=== PATIENT | male | born 1955 | race African-American/Black ===

== ENCOUNTER 2018-07-31 13:43 | Emergency (ER) | payer OTHER, MEDICARE, SELFPAY ==
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
[2018-07-31 14:05] VITALS: BP 122/85; PULSE 91; RESP 20; O2SAT 97
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
[2018-07-31 14:30] VITALS: BP 125/86; PULSE 73; RESP 17; O2SAT 100
[2018-07-31] MEDS: IBUPROFEN 400 MG TABLET 800 MG PO (15:14)
[2018-07-31 15:57] VITALS: BP 125/81; PULSE 89; RESP 16; O2SAT 98
== END 2018-07-31 15:45 | disposition home or self-care (01) ==
PROVIDERS: Emergency Provider Emergency Medicine; PCP Family Medicine
DX: S06.0X9A Concussion with loss of consciousness of unspecified duration, initial encounter (principal); V49.40XA Driver injured in collision with unspecified motor vehicles in traffic accident, initial encounter
CPT/HCPCS: 70450; 71045; 72125; 82962; 99282; 99284

== ENCOUNTER 2018-08-10 23:11 | Emergency (ER) | payer OTHER, MEDICARE, SELFPAY ==
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
[2018-08-10 23:20] VITALS: BP 143/91; PULSE 90; RESP 15; TEMP 36.7; O2SAT 97; BMI 33.0
== END 2018-08-11 00:04 | disposition home or self-care (01) ==
PROVIDERS: Emergency Provider Emergency Medicine; PCP Family Medicine
DX: R51 Headache (principal); F07.81 Postconcussional syndrome
CPT/HCPCS: 99282

== ENCOUNTER 2018-10-03 16:08 | Emergency (ER) | payer MEDICARE, OTHER, SELFPAY ==
[2018-10-03 16:13] VITALS: BP 134/83; PULSE 102; RESP 16; TEMP 36.9; O2SAT 98; BMI 33.0
--- NOTE | 2018-10-03 17:22 | DI.US.S_ITS ---
PROCEDURE: US SCROTUM INDICATIONS: PAIN, EDEMA TECHNIQUE: Real-time scanning was performed of the scrotum and testicles, with image documentation. Color and pulse Doppler interrogation was performed of both testicles. COMPARISON: None. FINDINGS: Right: Testicle is normal in size at 3.3 x 2.8 x 2.7 cm, and homogenous in echotexture. Epididymis is normal in overall size and morphology. Small right hydrocele. Overlying scrotal skin is normal in thickness. Left: Testicle is normal in size at 3.7 x 2.1 x 2.9 cm, and homogeneous in echotexture. Epididymis is normal in overall size and morphology. No hydrocele or varicoceles. Overlying scrotal skin is normal in thickness. Doppler: Color and pulse Doppler demonstrate increased arterial flow to the right testis and epididymis. Intact venous flow is seen bilaterally. IMPRESSION: 1. Mild right epididymo-orchitis. Dictated by: Jina Franco M.D. on 10/03/2018 at 18:15 Approved by: Jina Franco M.D. on 10/03/2018 at 18:16
--- NOTE | 2018-10-03 17:24 | ED.MALEGU ---
HPI - Male Genitourinary General Chief complaint: Urogenital-Male Stated complaint: PROBLEMS WITH LEFT AND RIGHT TESTICLE; SWELLING Time Seen by Provider: 10/03/18 17:15 Source: patient Mode of arrival: ambulatory Limitations: no limitations History of Present Illness HPI Narrative: 63-year-old male comes in with complaint of testicular pain. Patient states he has had some pain for the last couple weeks in the last, he is having the pain just started today on the right and noticed a particular area that discomfort. Patient he denies any dysuria, he denies any penile discharge. He has had a cyst on his left testicle in the past and saw urology for it. He states it felt a little bit similar to that. He denies any other symptoms, he denies any abdominal pain, no fevers, no nausea or vomiting. No GI symptoms. No urgency, no frequency. He has got some chronic back pain after having an accident July but no new changes. Patient has multiple medical problems including coronary artery disease, he is discussing with his physicians about cardiac stents. He is on hydrochloric when for sarcoidosis, he takes medications for hypertension, dyslipidemia, gout. He has had multiple orthopedic surgeries. He is accompanied by his today. Related Data Home Medications Medication Instructions Recorded Confirmed amlodipine 5 mg PO DAILY 10/03/18 10/03/18 aspirin 81 mg PO DAILY 10/03/18 10/03/18 camphor-menthol 1 applic TOPICAL BID PRN 10/03/18 10/03/18 cholecalciferol (vitamin D3) 2,000 unit PO DAILY 10/03/18 10/03/18 [Vitamin D3] clotrimazole 1 applic TOPICAL BID 10/03/18 10/03/18 colchicine 2 tab PO PRN PRN MDD 3 10/03/18 10/03/18 fluocinolone 1 applic TOPICAL DAILY PRN 10/03/18 10/03/18 fluoride (sodium) 1 applic DENTAL BEDTIME 10/03/18 10/03/18 glimepiride 4 mg PO QAM 10/03/18 10/03/18 glucose 16 g PO PRN PRN 10/03/18 10/03/18 hydroxychloroquine 400 mg PO DAILY 10/03/18 10/03/18 ibuprofen 600 mg PO TID PRN 10/03/18 10/03/18 insulin glargine 8 units SUBCUT QAM 10/03/18 10/03/18 isosorbide mononitrate 15 mg PO DAILY 10/03/18 10/03/18 lidocaine 1 applic TOPICAL BID PRN 10/03/18 10/03/18 metformin 1,000 mg PO BID 10/03/18 10/03/18 methocarbamol [Robaxin-750] 1,500 mg PO QID PRN 10/03/18 10/03/18 metoprolol succinate 50 mg PO DAILY 10/03/18 10/03/18 peg 400-propylene glycol 1 drp OPHTHALMIC (EYE) QID PRN 10/03/18 10/03/18 prednisone 10 mg PO DAILY 10/03/18 10/03/18 rosuvastatin 40 mg PO DAILY 10/03/18 10/03/18 saxagliptin 5 mg PO DAILY 10/03/18 10/03/18 tamsulosin 0.4 mg PO BEDTIME 10/03/18 10/03/18 triamcinolone acetonide 1 applic TOPICAL BID PRN 10/03/18 10/03/18 Previous Rx's Medication Instructions Recorded doxycycline hyclate 100 mg PO BID #28 cap 10/03/18 hydrocodone-acetaminophen [[place]] 1 tab PO Q6H PRN #10 tab 10/03/18 Allergies Allergy/AdvReac Type Severity Reaction Status Date / Time piroxicam [PIROXICAM] Allergy Mild RASH Verified 10/03/18 16:13 Review of Systems Review of Systems All systems reviewed & are unremarkable except as noted in HPI and below Constitutional Denies chills and Denies fever(s) Gastrointestinal Gastrointestinal: Denies abdominal pain, Denies change in bowel habits, Denies diarrhea, Denies nausea and Denies vomiting Genitourinary Reports as per HPI, Denies hematuria, Denies difficulty urinating, Denies genital lesions, Denies genital pain (Penile pain), Denies dysuria, Denies flank pain, Denies penile discharge, Reports scrotal swelling, Denies testicular mass, Reports testicular pain, Denies urinary frequency, Denies urinary hesitancy, Denies urinary incontinence and Denies urinary urgency Musculoskeletal Denies back pain PFSH Medical History Coronary artery disease (Acute) Dyslipidemia (Acute) Hypertension (Acute) Diabetes mellitus (Acute) Sarcoid (Acute) Surgical History H/O toe surgery (Acute) Social History Smoking Status: Never smoker alcohol intake: never substance use type: does not use Exam Narrative Exam Narrative: GENERAL: Alert and oriented x three, well-nourished, well-appearing male in mild distress. HEENT: Head normocephalic, atraumatic, EOMI, pupils reactive, face symmetric, moist mucous membranes NECK: Supple, full range of motion CARDIOVASCULAR: Regular rate and rhythm without murmurs, rubs or gallops. RESPIRATORY: Breath sounds equal bilaterally, no wheezes rales or rhonchi. ABDOMEN: Soft, nontender. Normoactive bowel sounds all 4 quadrants. No guarding or rebound, rigidity, no mass : No CVA tenderness. Male: normal external examination, no penile discharge or lesions, testicles mild tenderness on the left, none appreciated on the right. Patient does seem to have some a testicular enlargement in general bilaterally. Patient has normal cremasteric reflex intact, no inguinal hernias noted. Patient is uncircumcised. No penile discharge or lesions. EXTREMITIES: Normal range of motion, no clubbing or edema. Neurovascularly intact NEUROLOGICAL: Cranial nerves II through XII grossly intact. Moving all extremities SKIN: Warm, dry, no petechiae, no rashes or lesions. Initial Vital Signs Initial Vital Signs: Vital Signs Temperature 98.5 F 10/03/18 16:13 Pulse Rate 102 H 10/03/18 16:13 Respiratory Rate 16 10/03/18 16:13 Blood Pressure 134/83 10/03/18 16:13 Pulse Oximetry 98 10/03/18 16:13 Course Orders Ordered: ED Orders 10/03/18 16:16 Urinalysis and Microscopic Stat Urine Chlamydia Gonorrhea PCR Stat 10/03/18 17:22 US scrotum Stat Discontinued Medications Hydrocodone Bitart/Acetaminophen ([place] 5/325) 1 tab PO NOW ONE Stop: 10/03/18 18:26 Last Admin: 10/03/18 18:39 Dose: 1 tab Ceftriaxone Sodium (Rocephin) 250 mg IM NOW ONE Stop: 10/03/18 18:19 Last Admin: 10/03/18 18:42 Dose: 250 mg Vital Signs - 8 hr 10/03/18 16:13 Temperature 98.5 F Pulse Rate 102 H Respiratory Rate 16 Blood Pressure 134/83 Pulse Oximetry 98 MDM - Male Genitourinary Lab Data Lab Results 10/03/18 Range/Units 16:16 Urine Color Yellow Urine Appearance Clear Urine pH 8.5 H (4.5-8.0) Ur Specific [place] 1.015 (1.000-1.035) Urine Protein Negative (Negative) Urine Glucose (UA) Trace (Normal) g/dL Urine Ketones Negative (NEGATIVE) Urine Occult Blood Negative (Negative) Urine Nitrate Negative (Negative) Urine Bilirubin Negative (NEGATIVE) Urine Urobilinogen 0.2 (0.2) E.U./dL Ur Leukocyte Esterase Negative (NEGATIVE) Urine RBC None seen (0-5/HPF) Urine WBC 0-1/hpf (0-5/HPF) Urine Bacteria None seen (None) Ur Culture Indicated? Cult not indicated Micro UA Comment Microscopic normal Imaging Data scrotum US: Radiologist's impression: [address] [address] Ultrasound Report Signed Patient: Juan Mosquera MR#: [id number] : 1955 Acct:[id number] Age/Sex: 63 / M Date of Service: 10/03/18 Loc: ED Accession Number: [id number] Procedure: US scrotum Ordering Provider: Paulina Murillo D.O. PROCEDURE: US SCROTUM INDICATIONS: PAIN, EDEMA TECHNIQUE: Real-time scanning was performed of the scrotum and testicles, with image documentation. Color and pulse Doppler interrogation was performed of both testicles. COMPARISON: None. FINDINGS: Right: Testicle is normal in size at 3.3 x 2.8 x 2.7 cm, and homogenous in echotexture. Epididymis is normal in overall size and morphology. Small right hydrocele. Overlying scrotal skin is normal in thickness. Left: Testicle is normal in size at 3.7 x 2.1 x 2.9 cm, and homogeneous in echotexture. Epididymis is normal in overall size and morphology. No hydrocele or varicoceles. Overlying scrotal skin is normal in thickness. Doppler: Color and pulse Doppler demonstrate increased arterial flow to the right testis and epididymis. Intact venous flow is seen bilaterally. IMPRESSION: 1. Mild right epididymo-orchitis. Dictated by: Jina Franco M.D. on 10/03/2018 at 18:15 Approved by: Jina Franco M.D. on 10/03/2018 at 18:16 Discharge Plan Departure Patient Disposition: Home Clinical Impression: Epididymitis Instructions: DI for Epididymitis Activity Restrictions/Additional Instructions: Follow-up with your primary care physician or urologist in the next week for recheck. Take your antibiotics until completely gone. Return to the emergency department for fevers greater than 100.4, rapidly worsening pain, swelling or discomfort in the testicles, if you're unable to urinate sure if you have other new or concerning symptoms. Prescriptions: New doxycycline hyclate 100 mg capsule 100 mg PO BID Qty: 28 RF: 0 hydrocodone-acetaminophen [[place]] 5-325 mg tablet 1 tab PO Q6H PRN (Reason: pain) Qty: 10 RF: 0 No Action prednisone 10 mg Tablet 10 mg PO DAILY RF: 0 insulin glargine 100 unit/mL Solution 8 units subcut QAM RF: 0 isosorbide mononitrate 30 mg Tablet Extended Release 24 Hr 15 mg PO DAILY RF: 0 metoprolol succinate 100 mg Tablet Extended Release 24 Hr 50 mg PO DAILY RF: 0 amlodipine 5 mg Tablet 5 mg PO DAILY RF: 0 methocarbamol [Robaxin-750] 750 mg Tablet 1,500 mg PO QID PRN (Reason: Spasms) RF: 0 tamsulosin 0.4 mg Capsule 0.4 mg PO BEDTIME RF: 0 metformin 1,000 mg Tablet 1,000 mg PO BID RF: 0 triamcinolone acetonide 0.1 % Ointment 1 applic TOPICAL BID PRN (Reason: itching or rash) RF: 0 glimepiride 4 mg Tablet 4 mg PO QAM RF: 0 glucose 4 gram Tablet,Chewable 16 g PO PRN PRN (Reason: glucose of 70 mg/dl or less) RF: 0 camphor-menthol 0.5-0.5 % Lotion 1 applic TOPICAL BID PRN (Reason: pain relief) RF: 0 aspirin 81 mg Tablet,Chewable 81 mg PO DAILY RF: 0 fluocinolone 0.01 % Solution 1 applic TOPICAL DAILY PRN (Reason: rash or itching) RF: 0 hydroxychloroquine 200 mg Tablet 400 mg PO DAILY RF: 0 ibuprofen 600 mg Tablet 600 mg PO TID PRN (Reason: pain) RF: 0 colchicine 0.6 mg Tablet 2 tab PO PRN MDD 3 PRN (Reason: Gout) RF: 0 clotrimazole 1 % Cream 1 applic TOPICAL BID RF: 0 fluoride (sodium) 1.1 % Gel 1 applic Dental BEDTIME RF: 0 peg 400-propylene glycol 0.4-0.3 % Drops 1 drp ophthalmic (eye) QID PRN (Reason: Dry Eyes) RF: 0 rosuvastatin 40 mg Tablet 40 mg PO DAILY RF: 0 cholecalciferol (vitamin D3) [Vitamin D3] 1,000 unit Tablet 2,000 unit PO DAILY RF: 0 saxagliptin 5 mg Tablet 5 mg PO DAILY RF: 0 lidocaine 5 % Ointment 1 applic TOPICAL BID PRN (Reason: foot and knee pain) RF: 0 Referrals: Elise Sears MD [Primary Care Provider] -
[2018-10-03 17:38] LABS: Bacteria Urine None Seen; RBC Urine None Seen (0-5/HPF)
[2018-10-03 17:40] LABS: Appearance Urine UA CLEAR; Bilirubin Urine UA NEGATIVE (NEGATIVE); Color Urine UA YELLOW; Glucose Urine UA TRACE g/dL (Normal); Ketones Urine UA NEGATIVE (NEGATIVE); Leukocyte Esterase Urine UA NEGATIVE (NEGATIVE); Nitrite Urine UA NEGATIVE (Negative); Occult Blood Urine UA NEGATIVE (Negative); Protein Urine UA NEGATIVE (Negative); Specific Gravity Urine UA 1.015 (1.000-1.035); Urobilinogen Urine UA 0.2 E.U./dL (0.2); pH Urine UA 8.5 (4.5-8.0)
--- NOTE | 2018-10-03 17:44 | ED_ITS ---
HPI - Male Genitourinary General Chief complaint: Urogenital-Male Stated complaint: PROBLEMS WITH LEFT AND RIGHT TESTICLE; SWELLING Time Seen by Provider: 10/03/18 17:15 Source: patient Mode of arrival: ambulatory Limitations: no limitations History of Present Illness HPI Narrative: 63-year-old male comes in with complaint of testicular pain. Patient states he has had some pain for the last couple weeks in the last, he is having the pain just started today on the right and noticed a particular area that discomfort. Patient he denies any dysuria, he denies any penile discharge. He has had a cyst on his left testicle in the past and saw urology for it. He states it felt a little bit similar to that. He denies any other symptoms, he denies any abdominal pain, no fevers, no nausea or vomiting. No GI symptoms. No urgency, no frequency. He has got some chronic back pain after having an accident July but no new changes. Patient has multiple medical problems including coronary artery disease, he is discussing with his physicians about cardiac stents. He is on hydrochloric when for sarcoidosis, he takes medications for hypertension, dyslipidemia, gout. He has had multiple orthopedic surgeries. He is accompanied by his today. Related Data Home Medications Medication Instructions Recorded Confirmed amlodipine 5 mg PO DAILY 10/03/18 10/03/18 aspirin 81 mg PO DAILY 10/03/18 10/03/18 camphor-menthol 1 applic TOPICAL BID PRN 10/03/18 10/03/18 cholecalciferol (vitamin D3) 2,000 unit PO DAILY 10/03/18 10/03/18 [Vitamin D3] clotrimazole 1 applic TOPICAL BID 10/03/18 10/03/18 colchicine 2 tab PO PRN PRN MDD 3 10/03/18 10/03/18 fluocinolone 1 applic TOPICAL DAILY PRN 10/03/18 10/03/18 fluoride (sodium) 1 applic DENTAL BEDTIME 10/03/18 10/03/18 glimepiride 4 mg PO QAM 10/03/18 10/03/18 glucose 16 g PO PRN PRN 10/03/18 10/03/18 hydroxychloroquine 400 mg PO DAILY 10/03/18 10/03/18 ibuprofen 600 mg PO TID PRN 10/03/18 10/03/18 insulin glargine 8 units SUBCUT QAM 10/03/18 10/03/18 isosorbide mononitrate 15 mg PO DAILY 10/03/18 10/03/18 lidocaine 1 applic TOPICAL BID PRN 10/03/18 10/03/18 metformin 1,000 mg PO BID 10/03/18 10/03/18 methocarbamol [Robaxin-750] 1,500 mg PO QID PRN 10/03/18 10/03/18 metoprolol succinate 50 mg PO DAILY 10/03/18 10/03/18 peg 400-propylene glycol 1 drp OPHTHALMIC (EYE) QID PRN 10/03/18 10/03/18 prednisone 10 mg PO DAILY 10/03/18 10/03/18 rosuvastatin 40 mg PO DAILY 10/03/18 10/03/18 saxagliptin 5 mg PO DAILY 10/03/18 10/03/18 tamsulosin 0.4 mg PO BEDTIME 10/03/18 10/03/18 triamcinolone acetonide 1 applic TOPICAL BID PRN 10/03/18 10/03/18 Previous Rx's Medication Instructions Recorded doxycycline hyclate 100 mg PO BID #28 cap 10/03/18 hydrocodone-acetaminophen [[place]] 1 tab PO Q6H PRN #10 tab 10/03/18 Allergies Allergy/AdvReac Type Severity Reaction Status Date / Time piroxicam [PIROXICAM] Allergy Mild RASH Verified 10/03/18 16:13 Review of Systems Review of Systems All systems reviewed & are unremarkable except as noted in HPI and below Constitutional Denies chills and Denies fever(s) Gastrointestinal Gastrointestinal: Denies abdominal pain, Denies change in bowel habits, Denies diarrhea, Denies nausea and Denies vomiting Genitourinary Reports as per HPI, Denies hematuria, Denies difficulty urinating, Denies genital lesions, Denies genital pain (Penile pain), Denies dysuria, Denies flank pain, Denies penile discharge, Reports scrotal swelling, Denies testicular mass, Reports testicular pain, Denies urinary frequency, Denies urinary hesitancy, Denies urinary incontinence and Denies urinary urgency Musculoskeletal Denies back pain PFSH Medical History Coronary artery disease (Acute) Dyslipidemia (Acute) Hypertension (Acute) Diabetes mellitus (Acute) Sarcoid (Acute) Surgical History H/O toe surgery (Acute) Social History Smoking Status: Never smoker alcohol intake: never substance use type: does not use Exam Narrative Exam Narrative: GENERAL: Alert and oriented x three, well-nourished, well- appearing male in mild distress. HEENT: Head normocephalic, atraumatic, EOMI, pupils reactive, face symmetric, moist mucous membranes NECK: Supple, full range of motion CARDIOVASCULAR: Regular rate and rhythm without murmurs, rubs or gallops. RESPIRATORY: Breath sounds equal bilaterally, no wheezes rales or rhonchi. ABDOMEN: Soft, nontender. Normoactive bowel sounds all 4 quadrants. No guarding or rebound, rigidity, no mass : No CVA tenderness. Male: normal external examination, no penile discharge or lesions, testicles mild tenderness on the left, none appreciated on the right. Patient does seem to have some a testicular enlargement in general bilaterally. Patient has normal cremasteric reflex intact, no inguinal hernias noted. Patient is uncircumcised. No penile discharge or lesions. EXTREMITIES: Normal range of motion, no clubbing or edema. Neurovascularly intact NEUROLOGICAL: Cranial nerves II through XII grossly intact. Moving all extremities SKIN: Warm, dry, no petechiae, no rashes or lesions. Initial Vital Signs Initial Vital Signs: Vital Signs Temperature 98.5 F 10/03/18 16:13 Pulse Rate 102 H 10/03/18 16:13 Respiratory Rate 16 10/03/18 16:13 Blood Pressure 134/83 10/03/18 16:13 Pulse Oximetry 98 10/03/18 16:13 Course Orders Ordered: ED Orders 10/03/18 16:16 Urinalysis and Microscopic Stat Urine Chlamydia Gonorrhea PCR Stat 10/03/18 17:22 US scrotum Stat Discontinued Medications Hydrocodone Bitart/Acetaminophen ([place] 5/325) 1 tab PO NOW ONE Stop: 10/03/18 18:26 Last Admin: 10/03/18 18:39 Dose: 1 tab Ceftriaxone Sodium (Rocephin) 250 mg IM NOW ONE Stop: 10/03/18 18:19 Last Admin: 10/03/18 18:42 Dose: 250 mg Vital Signs - 8 hr 10/03/18 16:13 Temperature 98.5 F Pulse Rate 102 H Respiratory Rate 16 Blood Pressure 134/83 Pulse Oximetry 98 MDM - Male Genitourinary Lab Data Lab Results 10/03/18 Range/Units 16:16 Urine Color Yellow Urine Appearance Clear Urine pH 8.5 H (4.5-8.0) Ur Specific [place] 1.015 (1.000-1.035) Urine Protein Negative (Negative) Urine Glucose (UA) Trace (Normal) g/dL Urine Ketones Negative (NEGATIVE) Urine Occult Blood Negative (Negative) Urine Nitrate Negative (Negative) Urine Bilirubin Negative (NEGATIVE) Urine Urobilinogen 0.2 (0.2) E.U./dL Ur Leukocyte Esterase Negative (NEGATIVE) Urine RBC None seen (0-5/HPF) Urine WBC 0-1/hpf (0-5/HPF) Urine Bacteria None seen (None) Ur Culture Indicated? Cult not indicated Micro UA Comment Microscopic normal Imaging Data scrotum US: Radiologist's impression: [address] [address] Ultrasound Report Signed Patient: Juan Mosquera MR#: [id number] : 1955 Acct:[id number] Age/Sex: 63 / M Date of Service: 10/03/18 Loc: ED Accession Number: [id number] Procedure: US scrotum Ordering Provider: Paulina Murillo D.O. PROCEDURE: US SCROTUM INDICATIONS: PAIN, EDEMA TECHNIQUE: Real-time scanning was performed of the scrotum and testicles, with image documentation. Color and pulse Doppler interrogation was performed of both testicles. COMPARISON: None. FINDINGS: Right: Testicle is normal in size at 3.3 x 2.8 x 2.7 cm, and homogenous in echotexture. Epididymis is normal in overall size and morphology. Small right hydrocele. Overlying scrotal skin is normal in thickness. Left: Testicle is normal in size at 3.7 x 2.1 x 2.9 cm, and homogeneous in echotexture. Epididymis is normal in overall size and morphology. No hydrocele or varicoceles. Overlying scrotal skin is normal in thickness. Doppler: Color and pulse Doppler demonstrate increased arterial flow to the right testis and epididymis. Intact venous flow is seen bilaterally. IMPRESSION: 1. Mild right epididymo-orchitis. Dictated by: Jina Franco M.D. on 10/03/2018 at 18:15 Approved by: Jina Franco M.D. on 10/03/2018 at 18:16 Discharge Plan Departure Patient Disposition: Home Clinical Impression: Epididymitis Instructions: DI for Epididymitis Activity Restrictions/Additional Instructions: Follow-up with your primary care physician or urologist in the next week for recheck. Take your antibiotics until completely gone. Return to the emergency department for fevers greater than 100.4, rapidly worsening pain, swelling or discomfort in the testicles, if you're unable to urinate sure if you have other new or concerning symptoms. Prescriptions: New doxycycline hyclate 100 mg capsule 100 mg PO BID Qty: 28 RF: 0 hydrocodone-acetaminophen [[place]] 5-325 mg tablet 1 tab PO Q6H PRN (Reason: pain) Qty: 10 RF: 0 No Action prednisone 10 mg Tablet 10 mg PO DAILY RF: 0 insulin glargine 100 unit/mL Solution 8 units subcut QAM RF: 0 isosorbide mononitrate 30 mg Tablet Extended Release 24 Hr 15 mg PO DAILY RF: 0 metoprolol succinate 100 mg Tablet Extended Release 24 Hr 50 mg PO DAILY RF: 0 amlodipine 5 mg Tablet 5 mg PO DAILY RF: 0 methocarbamol [Robaxin-750] 750 mg Tablet 1,500 mg PO QID PRN (Reason: Spasms) RF: 0 tamsulosin 0.4 mg Capsule 0.4 mg PO BEDTIME RF: 0 metformin 1,000 mg Tablet 1,000 mg PO BID RF: 0 triamcinolone acetonide 0.1 % Ointment 1 applic TOPICAL BID PRN (Reason: itching or rash) RF: 0 glimepiride 4 mg Tablet 4 mg PO QAM RF: 0 glucose 4 gram Tablet,Chewable 16 g PO PRN PRN (Reason: glucose of 70 mg/dl or less) RF: 0 camphor-menthol 0.5-0.5 % Lotion 1 applic TOPICAL BID PRN (Reason: pain relief) RF: 0 aspirin 81 mg Tablet,Chewable 81 mg PO DAILY RF: 0 fluocinolone 0.01 % Solution 1 applic TOPICAL DAILY PRN (Reason: rash or itching) RF: 0 hydroxychloroquine 200 mg Tablet 400 mg PO DAILY RF: 0 ibuprofen 600 mg Tablet 600 mg PO TID PRN (Reason: pain) RF: 0 colchicine 0.6 mg Tablet 2 tab PO PRN MDD 3 PRN (Reason: Gout) RF: 0 clotrimazole 1 % Cream 1 applic TOPICAL BID RF: 0 fluoride (sodium) 1.1 % Gel 1 applic Dental BEDTIME RF: 0 peg 400-propylene glycol 0.4-0.3 % Drops 1 drp ophthalmic (eye) QID PRN (Reason: Dry Eyes) RF: 0 rosuvastatin 40 mg Tablet 40 mg PO DAILY RF: 0 cholecalciferol (vitamin D3) [Vitamin D3] 1,000 unit Tablet 2,000 unit PO DAILY RF: 0 saxagliptin 5 mg Tablet 5 mg PO DAILY RF: 0 lidocaine 5 % Ointment 1 applic TOPICAL BID PRN (Reason: foot and knee pain) RF: 0 Referrals: Elise Sears MD [Primary Care Provider] -
[2018-10-03 17:47] LABS: Culture Indicated Urine Cult Not Indicated; Urine Comments Microscopic Normal; WBC Urine 0-1/HPF (0-5/HPF)
[2018-10-03] MEDS: HYDROCODONE/ACET 5/325 TABLET 1 TAB PO (18:39)
[2018-10-03] MEDS: cefTRIAXone 500 MG VIAL 250 MG IM (18:42)
[2018-10-03 19:06] LABS: Urine N gonorrhoeae NOT DETECTED
[2018-10-03 19:08] LABS: Urine Chlamydia NOT DETECTED
[2018-10-03 19:13] VITALS: BP 127/90; PULSE 87; RESP 18; O2SAT 96
== END 2018-10-03 19:15 | disposition home or self-care (01) ==
PROVIDERS: Emergency Provider Emergency Medicine; PCP Family Medicine
DX: N45.1 Epididymitis (principal)
CPT/HCPCS: 76870; 81001; 87491; 87591; 96372; 99282; 99284; J0696

== ENCOUNTER 2019-10-10 13:52 | Emergency (ER) | payer MEDICARE, OTHER, SELFPAY ==
[2019-10-10 14:17] VITALS: BP 141/84; PULSE 103; RESP 18; TEMP 36.7; O2SAT 98; BMI 31.7
--- NOTE | 2019-10-10 14:22 | DI.US.S_ITS ---
PROCEDURE: US SCROTUM INDICATIONS: SCROTAL SWELLING AND PAIN TECHNIQUE: Real-time scanning was performed of the scrotum and testicles, with image documentation. Color and pulse Doppler interrogation was performed of both testicles. COMPARISON: [facility], , US SCROTUM, 10/03/2018, 17:54. FINDINGS: Right: Testicle is normal in size at 3.7 x 2.7 x 3.1 cm, and homogenous in echotexture. Epididymis is normal in overall size and morphology. There is a moderate complex hydrocele. No varicoceles. Overlying scrotal skin is normal in thickness. Left: Testicle is normal in size at 3.9 x 2.0 x 3.1 cm, and homogeneous in echotexture. Epididymis is normal in overall size and morphology. No hydrocele or varicoceles. Overlying scrotal skin is normal in thickness. Doppler: Color and pulse Doppler demonstrate normal and symmetric arterial flow in both testicles. IMPRESSION: 1. Normal testicles bilaterally. No evidence for testicular torsion or mass. 2. Normal epididymitis. 2. A moderate sized complex hydrocele is present on the right side, which could be a pyocele or hematocele. Dictated by: Sabiha Olivas M.D. on 10/10/2019 at 15:50 Approved by: Sabiha Olivas M.D. on 10/10/2019 at 15:55
[2019-10-10 16:41] LABS: Bacteria Urine None Seen; RBC Urine None Seen (0-5/HPF)
[2019-10-10 16:50] LABS: Culture Indicated Urine Cult Not Indicated; Squamous Epithelial Cell Urine 0-1 /HPF (0-5/HPF); WBC Urine 0-1/HPF (0-5/HPF)
--- NOTE | 2019-10-10 18:00 | PC.NURSE ---
pt reports testicular swelling, pain, onset today right side is worsen than left side +vasectomy, +hx of epididymitis a year ago denies penile dc, denies trauma, sexually active with one partner denies fever,nausea or vomiting. takes gabapentin, prednisone,rosuvastatin,tamsulosin
[2019-10-10 18:02] VITALS: BP 141/95; PULSE 92; RESP 16; O2SAT 97
--- NOTE | 2019-10-10 18:03 | ED_ITS ---
HPI - Male Genitourinary General Chief complaint: Urogenital-Male Stated complaint: issues with testicles Time Seen by Provider: 10/10/19 17:46 Source: patient Mode of arrival: Ambulatory Limitations: no limitations History of Present Illness HPI Narrative: This is a 64-year-old male comes in with complaint of right testicular swelling and left testicular pain. Patient states he had similar symptoms about a year ago. He saw a urologist but that was delayed by several months. He states that there was not any intervention. He has had a recurrence of his symptoms at this time. He states the pattern of pain and swelling is similar. He denies any fevers. No nausea or vomiting. No abdominal or flank pain. He denies penile pain. No dysuria urgency or frequency. Patient has not noticed any new skin changes. Patient states most recent episodes been over the last several days. He does have a history of sarcoidosis, hypertension and diabetes. He has had prior orthopedic surgeries but no intra-abdominal surgeries other than vasectomy. Patient denies any allergies to medications other than piroxicam. Related Data Home Medications Medication Instructions Recorded Confirmed amlodipine 5 mg PO DAILY 10/03/18 10/03/18 aspirin 81 mg PO DAILY 10/03/18 10/03/18 camphor-menthol 1 applic TOPICAL BID PRN 10/03/18 10/03/18 cholecalciferol (vitamin D3) 2,000 unit PO DAILY 10/03/18 10/03/18 [Vitamin D3] clotrimazole 1 applic TOPICAL BID 10/03/18 10/03/18 colchicine 2 tab PO PRN PRN MDD 3 10/03/18 10/03/18 fluocinolone 1 applic TOPICAL DAILY PRN 10/03/18 10/03/18 fluoride (sodium) 1 applic DENTAL BEDTIME 10/03/18 10/03/18 glimepiride 4 mg PO QAM 10/03/18 10/03/18 glucose 16 g PO PRN PRN 10/03/18 10/03/18 hydroxychloroquine 400 mg PO DAILY 10/03/18 10/03/18 ibuprofen 600 mg PO TID PRN 10/03/18 10/03/18 insulin glargine 8 units SUBCUT QAM 10/03/18 10/03/18 isosorbide mononitrate 15 mg PO DAILY 10/03/18 10/03/18 lidocaine 1 applic TOPICAL BID PRN 10/03/18 10/03/18 metformin 1,000 mg PO BID 10/03/18 10/03/18 methocarbamol [Robaxin-750] 1,500 mg PO QID PRN 10/03/18 10/03/18 metoprolol succinate 50 mg PO DAILY 10/03/18 10/03/18 peg 400-propylene glycol 1 drp OPHTHALMIC (EYE) QID PRN 10/03/18 10/03/18 prednisone 10 mg PO DAILY 10/03/18 10/03/18 rosuvastatin 40 mg PO DAILY 10/03/18 10/03/18 saxagliptin 5 mg PO DAILY 10/03/18 10/03/18 tamsulosin 0.4 mg PO BEDTIME 10/03/18 10/03/18 triamcinolone acetonide 1 applic TOPICAL BID PRN 10/03/18 10/03/18 Previous Rx's Medication Instructions Recorded hydrocodone-acetaminophen [Conifer] 1 tab PO Q6H PRN #10 tab 10/03/18 Allergies Allergy/AdvReac Type Severity Reaction Status Date / Time piroxicam [PIROXICAM] Allergy Mild RASH Verified 10/10/19 14:17 Review of Systems Review of Systems ROS Unobtainable: All systems reviewed & are unremarkable except as noted in HPI and below Patient History Medical History Coronary artery disease (Acute) Diabetes mellitus (Acute) Dyslipidemia (Acute) Hypertension (Acute) Sarcoid (Acute) Social History Smoking Status: Never smoker alcohol intake: never substance use type: does not use Smoking Status: Never smoker alcohol intake frequency: 0-2 drinks per day Substance Use Type: does not use Exam Narrative Exam Narrative: GENERAL: Alert and oriented x three, obese, well-appearing male in mild distress. HEENT: Head normocephalic, atraumatic, EOMI, pupils reactive, face symmetric, moist mucous membranes NECK: Supple, full range of motion CARDIOVASCULAR: Regular rate and rhythm without murmurs, rubs or gallops. RESPIRATORY: Breath sounds equal bilaterally, no wheezes rales or rhonchi. ABDOMEN: Soft, nontender. Normoactive bowel sounds all 4 quadrants. No guard ing or rebound, rigidity, no mass : No CVA tenderness. Male: uncircumcised penis, no penile discharge or lesions, left testicle is mildly tender, right testicle is swollen but non- tender, cremasteric reflex intact, no inguinal hernias noted. No erythema, no skin changes noted, no vesicles. EXTREMITIES: Normal range of motion, no clubbing or edema. Neurovascularly intact NEUROLOGICAL: Cranial nerves II through XII grossly intact. Moving all extremities SKIN: Warm, dry, no petechiae, no rashes or lesions. Initial Vital Signs Initial Vital Signs: Vital Signs Temperature 98.1 F 10/10/19 14:17 Pulse Rate 103 H 10/10/19 14:17 Respiratory Rate 18 10/10/19 14:17 Blood Pressure 141/84 H 10/10/19 14:17 Pulse Oximetry 98 10/10/19 14:17 Course Orders Ordered: ED Orders 10/10/19 14:22 US scrotum Stat 10/10/19 14:25 Urine Culture Stat Urine Microscopic Stat Vital Signs Vital signs: Vital Signs - 8 hr 10/10/19 14:17 10/10/19 18:02 Temperature 98.1 F Pulse Rate 103 H 92 H Respiratory Rate 18 16 Blood Pressure 141/84 H Blood Pressure [Left Arm] 141/95 H Pulse Oximetry 98 97 MDM - Male Genitourinary Lab Data Attestation: I reviewed the patient's lab results. Labs: Lab Results 10/10/19 Range/Units 14:25 Urine RBC None seen (0-5/HPF) Urine WBC 0-1/hpf (0-5/HPF) Ur Squamous Epith Cells 0-1 /hpf (0-5/HPF) Urine Bacteria None seen (None) Ur Culture Indicated? Cult not indicated Urine Dip Bedside Urine Glucose Negative Bedside Urine Bilirubin - Negative Bedside Urine Ketone - Negative Urine Specific [place] 1.015 Bedside Urine Occult Blood - Negative Bedside Urine pH 7.0 Bedside Urine Protein +/- 15 Bedside Urine Urobilinogen +/- 1mg Bedside Urine Nitrite - Negative Bedside Urine Leukocytes - Negative Esterase Imaging Data testicle US: Radiologist's Impression: [address] [address] Ultrasound Report Signed Patient: Juan Mosquera R#: [id number] : [id number]:[id number] Age/Sex: 64 / MDate of Service: 10/10/19 Loc: ED Accession Number: [id number] Procedure: US scrotum Ordering Provider: Paulina Murillo D.O. PROCEDURE: US SCROTUM INDICATIONS: SCROTAL SWELLING AND PAIN TECHNIQUE: Real-time scanning was performed of the scrotum and testicles, with image documentation. Color and pulse Doppler interrogation was performed of both testicles. COMPARISON: [facility], , US SCROTUM, 10/03/2018, 17:54. FINDINGS: Right: Testicle is normal in size at 3.7 x 2.7 x 3.1 cm, and homogenous in echotexture. Epididymis is normal in overall size and morphology. There is a moderate complex hydrocele. No varicoceles. Overlying scrotal skin is normal in thickness. Left: Testicle is normal in size at 3.9 x 2.0 x 3.1 cm, and homogeneous in echotexture. Epididymis is normal in overall size and morphology. No hydrocele or varicoceles. Overlying scrotal skin is normal in thickness. Doppler: Color and pulse Doppler demonstrate normal and symmetric arterial flow in both testicles. IMPRESSION: 1. Normal testicles bilaterally. No evidence for testicular torsion or mass. 2. Normal epididymitis. 2. A moderate sized complex hydrocele is present on the right side, which could be a pyocele or hematocele. Dictated by: Sabiha Olivas M.D. on 10/10/2019 at 15:50 Approved by: Sabiha Olivas M.D. on 10/10/2019 at 15:55 MDM Narrative Medical decision making narrative: Patient comes in with complaint of similar symptoms of past. Urine is negative. Urine was sent for culture. Ultrasound shows complex hydrocele with possibility of pyocele or hematocele. Patient has normal epididymitis. With normal testicles bilaterally. No evidence for torsion or mass. I discussed with patient he has had these symptoms in the past with some improvement but are recurrence. My suspicion for infection is low at this time. The side with the hydrocele is nontender. Discussed with patient I would like him to follow-up with Urology. [facility] [place] [facility] this [facility] he will stop by the office to either set up an appointment or be seen. He was also given ultrasound images on a disc to take to his appointment. Patient feels comfortable this plan. He defers anything for pain. We discussed signs and symptoms and reasons to return emergently. Discharge Plan Departure Patient Disposition: Home Clinical Impression: Hydrocele Discharge Date/Time: 10/10/19 18:33 Instructions: DI for Hydrocele-Adult Activity Restrictions/Additional Instructions: Follow up with your urologist at the [facility]. Call or stop by the office for an appointment. Take the disc with the ultrasound on it with you to see the urologist they may wish to view these images. Your urine today does not show any acute findings of infection, it was sent for urine culture. If this is positive you will receive a phone call to start you on antibiotics this is typically 48 to have a 72 hours later. You may continue home medications as prescribed. Return to the ER for fevers, rapidly worsening swelling, rapidly worsening pain, pain that is radiating into your abdomen, back or flanks, lightheadedness, passing out, bloody urine, nausea vomiting or other new or concerning symptoms. Prescriptions: No Action prednisone 10 mg Tablet 10 mg PO DAILY RF: 0 insulin glargine 100 unit/mL Solution 8 units subcut QAM RF: 0 isosorbide mononitrate 30 mg Tablet Extended Release 24 Hr 15 mg PO DAILY RF: 0 metoprolol succinate 100 mg Tablet Extended Release 24 Hr 50 mg PO DAILY RF: 0 amlodipine 5 mg Tablet 5 mg PO DAILY RF: 0 methocarbamol [Robaxin-750] 750 mg Tablet 1,500 mg PO QID PRN (Reason: Spasms) RF: 0 tamsulosin 0.4 mg Capsule 0.4 mg PO BEDTIME RF: 0 metformin 1,000 mg Tablet 1,000 mg PO BID RF: 0 triamcinolone acetonide 0.1 % Ointment 1 applic TOPICAL BID PRN (Reason: itching or rash) RF: 0 glimepiride 4 mg Tablet 4 mg PO QAM RF: 0 glucose 4 gram Tablet,Chewable 16 g PO PRN PRN (Reason: glucose of 70 mg/dl or less) RF: 0 camphor-menthol 0.5-0.5 % Lotion 1 applic TOPICAL BID PRN (Reason: pain relief) RF: 0 aspirin 81 mg Tablet,Chewable 81 mg PO DAILY RF: 0 fluocinolone 0.01 % Solution 1 applic TOPICAL DAILY PRN (Reason: rash or itching) RF: 0 hydroxychloroquine 200 mg Tablet 400 mg PO DAILY RF: 0 ibuprofen 600 mg Tablet 600 mg PO TID PRN (Reason: pain) RF: 0 colchicine 0.6 mg Tablet 2 tab PO PRN MDD 3 PRN (Reason: Gout) RF: 0 clotrimazole 1 % Cream 1 applic TOPICAL BID RF: 0 fluoride (sodium) 1.1 % Gel 1 applic Dental BEDTIME RF: 0 peg 400-propylene glycol 0.4-0.3 % Drops 1 drp ophthalmic (eye) QID PRN (Reason: Dry Eyes) RF: 0 rosuvastatin 40 mg Tablet 40 mg PO DAILY RF: 0 cholecalciferol (vitamin D3) [Vitamin D3] 1,000 unit Tablet 2,000 unit PO DAILY RF: 0 saxagliptin 5 mg Tablet 5 mg PO DAILY RF: 0 lidocaine 5 % Ointment 1 applic TOPICAL BID PRN (Reason: foot and knee pain) RF: 0 hydrocodone-acetaminophen [Conifer] 5-325 mg tablet 1 tab PO Q6H PRN (Reason: pain) Qty: 10 RF: 0 Referrals: Elise Sears MD [Primary Care Provider] -
== END 2019-10-10 18:33 | disposition home or self-care (01) ==
PROVIDERS: Emergency Provider Emergency Medicine; PCP Family Medicine
DX: N43.3 Hydrocele, unspecified (principal)
CPT/HCPCS: 76870; 81003; 81015; 87086; 99283

== ENCOUNTER 2020-01-14 16:35 | Emergency (ER) | payer MEDICARE, OTHER, SELFPAY ==
[2020-01-14 16:42] VITALS: BP 188/112; PULSE 96; RESP 20; TEMP 36.8; O2SAT 99; BMI 33.0
--- NOTE | 2020-01-14 16:44 | DI.RAD.S_ITS ---
PROCEDURE: XR CHEST 1V INDICATIONS: chest pain TECHNIQUE: One view of the chest was acquired. COMPARISON: [facility], CT, PE STUDY (CTA CHEST), 02/04/2016, 15:21. [facility], CR, CHEST 2 VIEW, 02/04/2016, 14:01. [facility], CR, XR CHEST 1V, 07/31/2018, 13:37. FINDINGS: Surgical changes and devices: None. Lungs and pleura: Right midlung streaky opacity is again seen. No superimposed infiltrates are seen. No pleural effusions or pneumothorax. Mediastinum: Mediastinal contours appear normal. Heart size is normal. Bones and chest wall: No suspicious bony lesions. Overlying soft tissues appear unremarkable. IMPRESSION: Stable portable chest study, mild right midlung streaky opacity. This is likely related to the patient's underlying history of sarcoidosis. Dictated by: Morgan Pedroza M.D. on 01/14/2020 at 16:11 Approved by: Morgan Pedroza M.D. on 01/14/2020 at 16:12
[2020-01-14 16:49] LABS: Add Manual Diff / Slide Review NO; Basophils Absolute Auto 0 /uL (0-100); Basophils Percent Auto 0.7 % (0-2); Eosinophils Absolute Auto 0 /uL (0-450); Eosinophils Percent Auto 0.8 % (2-4); Hemoglobin 14.4 g/dL (13.5-17.5); Lymphocytes Absolute Auto 900 /uL (1100-4500); Lymphocytes Percent Auto 15.9 % (25-40); Mean Corpuscular HGB Conc 32.8 % (30-36); Mean Corpuscular Hemoglobin 27.3 PG (26-34); Mean Corpuscular Volume 83.3 fL (80-100); Monocytes Absolute Auto 400 /uL (0-900); Monocytes Percent Auto 7.8 % (3-14); Neutrophils Absolute Auto 4200 /uL (1500-7000); Neutrophils Percent Auto 74.8 % (50-75); Platelet Count 205 X10^3/uL (150-400); Red Blood Cell Count 5.28 X10^6/uL (4.5-5.9); Red Cell Distribution Width 14.2 % (11.6-14.8); White Blood Cell Count 5.6 X10^3/uL (4.5-11.0)
--- NOTE | 2020-01-14 16:52 | ED_ITS ---
HPI - Chest Pain <Vero GutierrezSUNSHINE - Last Filed: 01/14/20 22:03> General Chief Complaint: Chest Pain Stated Complaint: chest pain Time Seen by Provider: 01/14/20 16:37 Source: patient Mode of arrival: Ambulatory Limitations: no limitations History of Present Illness HPI narrative: 64-year-old male with a history of diabetes, hypertension, sarcoidosis, and PE, presents emergency department for intermittent burning chest pain for the past month. He still gets these episodes have become more frequent today. He denies any aggravating or alleviating factors including meals, exercise, activity, movement, or medications. Patient states the pain is substernal, ?on both sides my chest?, and radiates down into the left side of his upper abdomen with intermittent associated nausea. Patient states that he occasionally he gets dizzy when he stands up really fast but this has been ongo ing for the past year. He also reports some dull aching right-sided shoulder pain that is worse with movement especially extension of his arm. Patient denies any other symptoms such as fever, shortness of breath, syncope, activity intolerance, abdominal pain, vomiting, diarrhea, or any other concerns. Patient states his last episode was a few minutes ago, the episodes appear to last more than an hour. He is pain-free at this time. Related Data Home Medications Medication Instructions Recorded Confirmed amlodipine 5 mg PO DAILY 10/03/18 10/03/18 aspirin 81 mg PO DAILY 10/03/18 10/03/18 camphor-menthol 1 applic TOPICAL BID PRN 10/03/18 10/03/18 cholecalciferol (vitamin D3) 2,000 unit PO DAILY 10/03/18 10/03/18 [Vitamin D3] clotrimazole 1 applic TOPICAL BID 10/03/18 10/03/18 colchicine 2 tab PO PRN PRN MDD 3 10/03/18 10/03/18 fluocinolone 1 applic TOPICAL DAILY PRN 10/03/18 10/03/18 fluoride (sodium) 1 applic DENTAL BEDTIME 10/03/18 10/03/18 glimepiride 4 mg PO QAM 10/03/18 10/03/18 glucose 16 g PO PRN PRN 10/03/18 10/03/18 hydroxychloroquine 400 mg PO DAILY 10/03/18 10/03/18 ibuprofen 600 mg PO TID PRN 10/03/18 10/03/18 insulin glargine 8 units SUBCUT QAM 10/03/18 10/03/18 isosorbide mononitrate 15 mg PO DAILY 10/03/18 10/03/18 lidocaine 1 applic TOPICAL BID PRN 10/03/18 10/03/18 metformin 1,000 mg PO BID 10/03/18 10/03/18 methocarbamol [Robaxin-750] 1,500 mg PO QID PRN 10/03/18 10/03/18 metoprolol succinate 50 mg PO DAILY 10/03/18 10/03/18 peg 400-propylene glycol 1 drp OPHTHALMIC (EYE) QID PRN 10/03/18 10/03/18 prednisone 10 mg PO DAILY 10/03/18 10/03/18 rosuvastatin 40 mg PO DAILY 10/03/18 10/03/18 saxagliptin 5 mg PO DAILY 10/03/18 10/03/18 tamsulosin 0.4 mg PO BEDTIME 10/03/18 10/03/18 triamcinolone acetonide 1 applic TOPICAL BID PRN 10/03/18 10/03/18 Previous Rx's Medication Instructions Recorded hydrocodone-acetaminophen [[place]] 1 tab PO Q6H PRN #10 tab 10/03/18 omeprazole 20 mg PO DAILY #14 cap 01/14/20 Allergies Allergy/AdvReac Type Severity Reaction Status Date / Time piroxicam [PIROXICAM] Allergy Mild RASH Verified 10/10/19 14:17 Review of Systems <SUNSHINE Tafoya - Last Filed: 01/14/20 22:03> Review of Systems Narrative: REVIEW OF SYSTEMS: GENERAL: Denies fever, chills, malaise, or wt. loss. HENT: No head trauma, sore throat, or dysphagia. EYES: No loss of vision, double vision, eye pain, or irritation. CARDIOVASCULAR: Reports burning chest pain, see HPI. RESPIRATORY: No shortness of breath or cough. GASTROINTESTINAL: Reports upper left abdominal pain, see HPI. GENITOURINARY: No flank pain, urinary incontinence, hesitancy, frequency, or dysuria. [No vaginal discharge or dyspareunia. Denies concerns for STIs] MUSCULOSKELETAL: No pain, weakness, or trauma. INTEGUMENTARY: No rash, lesions, or pruritus. NEURO: No numbness, tingling, memory loss, confusion, or headaches. PSYCH: No behavior or mood changes. Patient History <SUNSHINE Tafoya - Last Filed: 01/14/20 22:03> Medical History Coronary artery disease (Acute) Diabetes mellitus (Acute) Dyslipidemia (Acute) Hypertension (Acute) Sarcoid (Acute) Surgical History H/O toe surgery (Acute) Social History Smoking Status: Never smoker alcohol intake: never substance use type: does not use Smoking Status: Never smoker alcohol intake frequency: 0-2 drinks per day Substance Use Type: does not use Exam <SUNSHINE Tafoya - Last Filed: 01/14/20 22:03> Initial Vital Signs Initial Vital Signs: Vital Signs Temperature 98.2 F 01/14/20 16:42 Pulse Rate 96 H 01/14/20 16:42 Respiratory Rate 20 01/14/20 16:42 Blood Pressure 188/112 H 01/14/20 16:42 Pulse Oximetry 99 01/14/20 16:42 PHYSICAL EXAMINATION: GENERAL: Well groomed, alert, and cooperative. Answers questions promptly and appropriately. Vital signs noted. HENT: Normocephalic, atraumatic. Hearing intact. Oral mucosa is pink and moist. EYES: Conjunctiva pink, sclera white, no periorbital swelling. CARDIOVASCULAR: S1 and S2 sounds normal. Regular rate and rhythm, no murmurs, clicks, or bruits. No pedal edema. RESPIRATORY: Normal respiratory rate, trachea midline, airway patent. No stridor, nasal flaring or accessory muscle use. Lungs are clear in all ribera without wheeze, rhonchi, or crackles. GASTROINTESTINAL: Bowel sounds normoactive. Abdomen is soft and non-tender. No organomegaly, no palpable masses. GENITALURINARY: No flank tenderness. MUSCULOSKELETAL: Slight tenderness to right shoulder and right sternocleidomastoid. No swelling or erythema. Normal gait and coordination. Equal tone and mass bilaterally. EXTREMITIES: CMS intact, no pedal edema. SKIN: Warm, dry, soft, appropriate color for ethnicity. No lesions, rashes, or wounds to visualized areas. NEURO: Alert and Oriented X 3. Good coordination. No ataxia, or sensory deficits, or cognitive issues. PSYCH: Appropriate affect and mood. <Lianna Briscoe MD - Last Filed: 01/15/20 07:00> Initial Vital Signs Initial Vital Signs: Vital Signs Temperature 98.2 F 01/14/20 16:42 Pulse Rate 96 H 01/14/20 16:42 Respiratory Rate 20 01/14/20 16:42 Blood Pressure 188/112 H 01/14/20 16:42 Pulse Oximetry 99 01/14/20 16:42 Scores <SUNSHINE Tafoya - Last Filed: 01/14/20 22:03> HEART Score Heart Score history: Slightly Suspicious Heart Score EKG: Normal Heart Score Age: 45-64 years old Heart Score risk factors: 1-2 risk factors Heart Score troponin: < or = to normal limit Heart Score Total: 2 Course <SUNSHINE Tafoya - Last Filed: 01/14/20 22:03> Orders Ordered: Discontinued Medications Al Hydrox/Mg Hydrox/Simethicone 20 ml/ Lidocaine HCl 15 ml 0 ml PO NOW ONE Stop: 01/14/20 17:56 Last Admin: 01/14/20 18:14 Dose: 30 ml Documented by: CANDIS Vital Signs Vital signs: Vital Signs - 8 hr 01/14/20 16:42 01/14/20 17:00 01/14/20 19:02 Temperature 98.2 F Pulse Rate 96 H 89 81 Respiratory Rate 20 13 13 Blood Pressure 188/112 H 136/90 Blood Pressure [Right Arm] 140/84 Pulse Oximetry 99 99 97 <Lianna Briscoe MD - Last Filed: 01/15/20 07:00> Orders Ordered: Discontinued Medications Al Hydrox/Mg Hydrox/Simethicone 20 ml/ Lidocaine HCl 15 ml 0 ml PO NOW ONE Stop: 01/14/20 17:56 Last Admin: 01/14/20 18:14 Dose: 30 ml Documented by: KBRJENNIM Vital Signs Vital signs: Vital Signs - 8 hr 01/14/20 16:42 01/14/20 17:00 01/14/20 19:02 Temperature 98.2 F Pulse Rate 96 H 89 81 Respiratory Rate 20 13 13 Blood Pressure 188/112 H 136/90 Blood Pressure [Right Arm] 140/84 Pulse Oximetry 99 99 97 MDM - Chest Pain <Vero GutierrezSUNSHINE - Last Filed: 01/14/20 22:03> Medical Records Data Attestation: I reviewed the patient's medical records. Lab Data Attestation: I reviewed the patient's lab results. Result diagrams: 01/14/20 16:40 01/14/20 17:15 Labs: Lab Results 01/14/20 01/14/20 01/14/20 Range/Units 16:40 16:40 17:15 WBC 5.6 (4.5-11.0) X10^3/uL RBC 5.28 (4.5-5.9) X10^6/uL Hgb 14.4 (13.5-17.5) g/dL Hct 44.0 (41-53) % MCV 83.3 (80-100) fL MCH 27.3 (26-34) PG MCHC 32.8 (30-36) % RDW 14.2 (11.6-14.8) % Plt Count 205 (150-400) X10^3/uL Neut % (Auto) 74.8 (50-75) % Lymph % (Auto) 15.9 L (25-40) % [place] % (Auto) 7.8 (3-14) % Eos % (Auto) 0.8 L (2-4) % Baso % (Auto) 0.7 (0-2) % Neut # (Auto) 4200 (8936-3949) /uL Lymph # (Auto) 900 L (1424-5283) /uL [place] # (Auto) 400 (0-900) /uL Eos # (Auto) 0 (0-450) /uL Baso # (Auto) 0 (0-100) /uL PT 11.4 (10.1-12.7) SECONDS INR 1.0 (0.9-1.3) APTT 31 (26.4-36.2) SECONDS Sodium 137 (137-145) mmol/L Potassium 4.7 (3.4-5.1) mmol/L Chloride 104 (98-107) mmol/L Carbon Dioxide 24 (22-32) mmol/L BUN 15 (9-20) mg/dL Creatinine 1.04 (0.66-1.25) mg/dL Estimated GFR > 60.0 (>60) mL/min BUN/Creatinine Ratio 14.4 (6-22) Glucose 274 H (80-110) mg/dL Calcium 9.7 (8.4-10.2) mg/dL Total Bilirubin 0.3 (0.2-1.3) mg/dL AST 27 (17-59) IU/L ALT 23 (<50) IU/L Alkaline Phosphatase 45 (38-126) U/L Total Creatine Kinase 224 H (55-170) U/L CK-MB (CK-2) 1.40 (<2.37) ng/mL CK-MB (CK-2) Rel Index 0.6 L (1.5-5.0) % Troponin I < 0.012 (0.01-0.034) ng/mL Total Protein 7.6 (6.3-8.2) g/dL Albumin 4.3 (3.5-5.0) g/dL Globulin 3.3 (1.7-4.1) g/dL Albumin/Globulin Ratio 1.3 (1.0-2.8) Lipase 94 (23-300) U/L Imaging Data Chest x-ray: Radiologist's Impression: [address] [address] XRay Report Signed Patient: Juan Mosquera R#: [id number] : 7Acct:[id number] Age/Sex: 64 / MDate of Service: 01/14/20 Loc: ED Accession Number: [id number] Procedure: XR chest 1V Ordering Provider: Vero Gutierrez PROCEDURE: XR CHEST 1V INDICATIONS: chest pain TECHNIQUE: One view of the chest was acquired. COMPARISON: [facility], CT, PE STUDY (CTA CHEST), 02/04/2016, 15:21. [facility], CR, CHEST 2 VIEW, 02/04/2016, 14:01. [facility], CR, XR CHEST 1V, 07/31/2018, 13:37. FINDINGS: Surgical changes and devices: None. Lungs and pleura: Right midlung streaky opacity is again seen. No superimposed infiltrates are seen. No pleural effusions or pneumothorax. Mediastinum: Mediastinal contours appear normal. Heart size is normal. Bones and chest wall: No suspicious bony lesions. Overlying soft tissues appear unremarkable. IMPRESSION: Stable portable chest study, mild right midlung streaky opacity. This is likely related to the patient's underlying history of sarcoidosis. Dictated by: Morgan Pedroza M.D. on 01/14/2020 at 16:11 Approved by: Morgan Pedroza M.D. on 01/14/2020 at 16:12 ECG Data Interpretation: Normal sinus rhythm, rate 91, OR interval 156, QTC 423. No ST elevation or ST depression. No T-wave abnormality, no ectopy. EKG was viewed by Dr. Briscoe per protocol. MDM Narrative Medical decision making narrative: 64-year-old male with a history of diabetes and sarcoidosis presents to the emergency department with burning chest pain over the past month. Patient came in today because the episodes of pain have been increasing in frequency. Differential includes acid reflux (most likely due to description of pain and location, patient reported decreased pain after GI cocktail), gallbladder issue (less likely due to lack of tenderness, lipase within normal limits), pancreatitis, and cardiac etiology. Heart score of 2, less likely cardiac due to description of a burning pain without aggravating or alleviating symptoms, negative troponin, ongoing symptoms for the past month, non remarkable EKG, and unremarkable chest x-ray. However, due to risk factors, patient may benefit from outpatient stress test. Patient was discharged with very strict return precautions and was given omeprazole. <Lianna Briscoe MD - Last Filed: 01/15/20 07:00> Lab Data Labs: Lab Results 01/14/20 01/14/20 01/14/20 Range/Units 16:40 16:40 17:15 WBC 5.6 (4.5-11.0) X10^3/uL RBC 5.28 (4.5-5.9) X10^6/uL Hgb 14.4 (13.5-17.5) g/dL Hct 44.0 (41-53) % MCV 83.3 (80-100) fL MCH 27.3 (26-34) PG MCHC 32.8 (30-36) % RDW 14.2 (11.6-14.8) % Plt Count 205 (150-400) X10^3/uL Neut % (Auto) 74.8 (50-75) % Lymph % (Auto) 15.9 L (25-40) % [place] % (Auto) 7.8 (3-14) % Eos % (Auto) 0.8 L (2-4) % Baso % (Auto) 0.7 (0-2) % Neut # (Auto) 4200 (8537-3241) /uL Lymph # (Auto) 900 L (1951-7244) /uL [place] # (Auto) 400 (0-900) /uL Eos # (Auto) 0 (0-450) /uL Baso # (Auto) 0 (0-100) /uL PT 11.4 (10.1-12.7) SECONDS INR 1.0 (0.9-1.3) APTT 31 (26.4-36.2) SECONDS Sodium 137 (137-145) mmol/L Potassium 4.7 (3.4-5.1) mmol/L Chloride 104 (98-107) mmol/L Carbon Dioxide 24 (22-32) mmol/L BUN 15 (9-20) mg/dL Creatinine 1.04 (0.66-1.25) mg/dL Estimated GFR > 60.0 (>60) mL/min BUN/Creatinine Ratio 14.4 (6-22) Glucose 274 H (80-110) mg/dL Calcium 9.7 (8.4-10.2) mg/dL Total Bilirubin 0.3 (0.2-1.3) mg/dL AST 27 (17-59) IU/L ALT 23 (<50) IU/L Alkaline Phosphatase 45 (38-126) U/L Total Creatine Kinase 224 H (55-170) U/L CK-MB (CK-2) 1.40 (<2.37) ng/mL CK-MB (CK-2) Rel Index 0.6 L (1.5-5.0) % Troponin I < 0.012 (0.01-0.034) ng/mL Total Protein 7.6 (6.3-8.2) g/dL Albumin 4.3 (3.5-5.0) g/dL Globulin 3.3 (1.7-4.1) g/dL Albumin/Globulin Ratio 1.3 (1.0-2.8) Lipase 94 (23-300) U/L Discharge Plan Departure Patient Disposition: Home Clinical Impression: Atypical chest pain Discharge Date/Time: 01/14/20 19:03 Instructions: DI for Gastroesophageal Reflux Disease (GERD), DI for Atypical Chest Pain Activity Restrictions/Additional Instructions: Thank you for entrusting me with your care today. As discussed, your EKG, chest x-ray, and laboratory work is non-remarkable. I am uncertain the exact cause of your pain. I do recommend following up with her primary care provider, given a call tomorrow to discuss that your in the emergency department. It may be advisable for you to receive an outpatient stress test. However, it may also be possible that your symptoms are caused by acid reflex, I prescribed you a medication to take for the next 2 weeks to help decrease symptoms. However, it is very important if you develop new or worsening symptoms they return emergency department immediately. Prescriptions: New omeprazole 20 mg capsule,delayed release(DR/EC) 20 mg PO DAILY Qty: 14 RF: 0 No Action prednisone 10 mg Tablet 10 mg PO DAILY RF: 0 insulin glargine 100 unit/mL Solution 8 units subcut QAM RF: 0 isosorbide mononitrate 30 mg Tablet Extended Release 24 Hr 15 mg PO DAILY RF: 0 metoprolol succinate 100 mg Tablet Extended Release 24 Hr 50 mg PO DAILY RF: 0 amlodipine 5 mg Tablet 5 mg PO DAILY RF: 0 methocarbamol [Robaxin-750] 750 mg Tablet 1,500 mg PO QID PRN (Reason: Spasms) RF: 0 tamsulosin 0.4 mg Capsule 0.4 mg PO BEDTIME RF: 0 metformin 1,000 mg Tablet 1,000 mg PO BID RF: 0 triamcinolone acetonide 0.1 % Ointment 1 applic TOPICAL BID PRN (Reason: itching or rash) RF: 0 glimepiride 4 mg Tablet 4 mg PO QAM RF: 0 glucose 4 gram Tablet,Chewable 16 g PO PRN PRN (Reason: glucose of 70 mg/dl or less) RF: 0 camphor-menthol 0.5-0.5 % Lotion 1 applic TOPICAL BID PRN (Reason: pain relief) RF: 0 aspirin 81 mg Tablet,Chewable 81 mg PO DAILY RF: 0 fluocinolone 0.01 % Solution 1 applic TOPICAL DAILY PRN (Reason: rash or itching) RF: 0 hydroxychloroquine 200 mg Tablet 400 mg PO DAILY RF: 0 ibuprofen 600 mg Tablet 600 mg PO TID PRN (Reason: pain) RF: 0 colchicine 0.6 mg Tablet 2 tab PO PRN MDD 3 PRN (Reason: Gout) RF: 0 clotrimazole 1 % Cream 1 applic TOPICAL BID RF: 0 fluoride (sodium) 1.1 % Gel 1 applic Dental BEDTIME RF: 0 peg 400-propylene glycol 0.4-0.3 % Drops 1 drp ophthalmic (eye) QID PRN (Reason: Dry Eyes) RF: 0 rosuvastatin 40 mg Tablet 40 mg PO DAILY RF: 0 cholecalciferol (vitamin D3) [Vitamin D3] 1,000 unit Tablet 2,000 unit PO DAILY RF: 0 saxagliptin 5 mg Tablet 5 mg PO DAILY RF: 0 lidocaine 5 % Ointment 1 applic TOPICAL BID PRN (Reason: foot and knee pain) RF: 0 hydrocodone-acetaminophen [[place]] 5-325 mg tablet 1 tab PO Q6H PRN (Reason: pain) Qty: 10 RF: 0 Referrals: Elise Sears MD [Primary Care Provider] -
[2020-01-14 16:56] LABS: Prothrombin Time 11.4 SECONDS (10.1-12.7)
[2020-01-14 16:58] LABS: PTT Partial Thromboplastin Tim 31 SECONDS (26.4-36.2)
[2020-01-14 17:00] VITALS: BP 140/84; PULSE 89; RESP 13; O2SAT 99
[2020-01-14 17:38] LABS: Alanine Aminotransferase 23 IU/L (<50); Albumin 4.3 g/dL (3.5-5.0); Albumin Globulin Ratio 1.3 (1.0-2.8); Alkaline Phosphatase 45 U/L (38-126); Aspartate Aminotransferase 27 IU/L (17-59); BUN Creatinine Ratio 14.4 (6-22); Bilirubin Total 0.3 mg/dL (0.2-1.3); Blood Urea Nitrogen 15 mg/dL (9-20); Calcium 9.7 mg/dL (8.4-10.2); Carbon Dioxide 24 mmol/L (22-32); Chloride 104 mmol/L (98-107); Creatine Kinase 224 U/L (55-170); Estimated Glomerular Filt Rate > 60.0 mL/min (>60); Globulin 3.3 g/dL (1.7-4.1); Glucose 274 mg/dL (80-110); HEMOLYSIS < 15 (0-50); Lipase 94 U/L (23-300); Potassium 4.7 mmol/L (3.4-5.1); Sodium 137 mmol/L (137-145); Total Protein 7.6 g/dL (6.3-8.2)
[2020-01-14 17:50] LABS: Troponin I < 0.012 ng/mL (0.01-0.034)
[2020-01-14 17:53] LABS: CKMB % Relative Index 0.6 % (1.5-5.0)
[2020-01-14] MEDS: MAG HYDROX/ALUMINUM/SIMETH SUS 20 ML, LIDOCAINE VISCOUS 2% 15 ML PO (18:14)
[2020-01-14 19:02] VITALS: BP 136/90; PULSE 81; RESP 13; O2SAT 97
== END 2020-01-14 19:03 | disposition home or self-care (01) ==
PROVIDERS: Emergency Provider Nurse Practitioner; PCP Family Medicine
DX: R07.89 Other chest pain (principal); K21.9 Gastro-esophageal reflux disease without esophagitis; E11.9 Type 2 diabetes mellitus without complications; I10 Essential (primary) hypertension; D86.9 Sarcoidosis, unspecified; R10.12 Left upper quadrant pain
CPT/HCPCS: 36415; 71045; 80053; 82550; 82553; 83690; 84484; 85025; 85610; 85730; 93005; 99284

== ENCOUNTER 2020-09-28 10:17 | Emergency (ER) | payer MEDICARE, OTHER, SELFPAY ==
[2020-09-28] VITALS (10 sets, daily range): BP systolic 123–183; BP diastolic 78–106; PULSE 69–98; RESP 11–21; TEMP 36.9; O2SAT 97–99; BMI 30.8
--- NOTE | 2020-09-28 11:12 | ED.HA ---
HPI - Headache <Paulina Boyle LABORATORY SPECIALIST-BC - Last Filed: 09/28/20 14:09> General Chief Complaint: Headache Stated Complaint: Pain on left side of face and back of neck Time Seen by Provider: 09/28/20 10:46 Source: patient Mode of arrival: Ambulatory Limitations: no limitations History of Present Illness HPI Narrative: The patient is a 65-year-old male nonsmoker with history of sarcoidosis, history of pulmonary embolism, who presents with a chief complaint of ongoing facial pain and tingling sensation on the left side of his face since July. He states this started on August 01 or so. He complains of headache on the left side, rating down to the back of the left side of his neck. He complains of a flushing sensation that goes from his head down to his chest every night. He states that this is laura to IV contrast every night. Denies any chest pain or shortness of breath. He does complain of an ongoing mass by his left ear that has also [employer] going on since July. He states recently it has gotten larger. He has followed up with primary care provider regarding this, but has not seen her in several months. 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 He does note that he had a negative coronavirus test in July. He denies any current chest pain shortness of breath, fevers muscle aches or chills. He states he was using Tylenol for the headache, but has not taken anything for today. Related Data Home Medications Medication Instructions Recorded Confirmed amlodipine 5 mg PO DAILY 10/03/18 10/03/18 aspirin 81 mg PO DAILY 10/03/18 10/03/18 camphor-menthol 1 applic TOPICAL BID PRN 10/03/18 10/03/18 cholecalciferol (vitamin D3) 2,000 unit PO DAILY 10/03/18 10/03/18 [Vitamin D3] clotrimazole 1 applic TOPICAL BID 10/03/18 10/03/18 colchicine 2 tab PO PRN PRN MDD 3 10/03/18 10/03/18 fluocinolone 1 applic TOPICAL DAILY PRN 10/03/18 10/03/18 fluoride (sodium) 1 applic DENTAL BEDTIME 10/03/18 10/03/18 glimepiride 4 mg PO QAM 10/03/18 10/03/18 glucose 16 g PO PRN PRN 10/03/18 10/03/18 hydroxychloroquine 400 mg PO DAILY 10/03/18 10/03/18 ibuprofen 600 mg PO TID PRN 10/03/18 10/03/18 insulin glargine 8 units SUBCUT QAM 10/03/18 10/03/18 isosorbide mononitrate 15 mg PO DAILY 10/03/18 10/03/18 lidocaine 1 applic TOPICAL BID PRN 10/03/18 10/03/18 metformin 1,000 mg PO BID 10/03/18 10/03/18 methocarbamol [Robaxin-750] 1,500 mg PO QID PRN 10/03/18 10/03/18 metoprolol succinate 50 mg PO DAILY 10/03/18 10/03/18 peg 400-propylene glycol 1 drp OPHTHALMIC (EYE) QID PRN 10/03/18 10/03/18 prednisone 10 mg PO DAILY 10/03/18 10/03/18 rosuvastatin 40 mg PO DAILY 10/03/18 10/03/18 saxagliptin 5 mg PO DAILY 10/03/18 10/03/18 tamsulosin 0.4 mg PO BEDTIME 10/03/18 10/03/18 triamcinolone acetonide 1 applic TOPICAL BID PRN 10/03/18 10/03/18 Previous Rx's Medication Instructions Recorded hydrocodone-acetaminophen [Deming] 1 tab PO Q6H PRN #10 tab 10/03/18 omeprazole 20 mg PO DAILY #14 cap 01/14/20 amoxicillin-pot clavulanate 1 tab PO BID #20 tab 09/28/20 [Augmentin] Allergies Allergy/AdvReac Type Severity Reaction Status Date / Time piroxicam [PIROXICAM] Allergy Mild RASH Verified 09/28/20 10:32 Review of Systems <MANUEL Gutierrez-BC - Last Filed: 09/28/20 14:09> Review of Systems Narrative: GENERAL: Denies chills, fatigue, malaise, fever, sweats. HEENT: See HPI RESPIRATORY: Denies dyspnea, cough, wheezing, hemoptysis, sputum. CARDIOVASCULAR: Denies chest pain, palpitations, orthopnea, edema, GASTROINTESTINAL: Denies nausea, vomiting, abdominal pain, diarrhea, constipation, melena. : Denies dysuria, frequency, incontinence, hematuria, urinary retention. MUSCULOSKELETAL: denies weakness, joint pain, or bony pain SKIN: Denies rash, skin lesions, or other NEUROLOGIC: Denies weakness, headache, numbness, change in speech, confusion, seizures, incoordination. PSYCHIATRIC: No concerning psychosocial issues. 12 point review of systems is negative except for those stated above Patient History <STACIA Gutierrez - Last Filed: 09/28/20 14:09> Medical History (Updated 09/28/20 @ 13:19 by STACIA Gutierrez) Coronary artery disease Diabetes mellitus Dyslipidemia Hypertension Sarcoid Surgical History H/O toe surgery Social History Smoking Status: Never smoker alcohol intake: never substance use type: does not use Smoking Status: Never smoker alcohol intake frequency: 0-2 drinks per day Substance Use Type: does not use Exam <STACIA Gutierrez - Last Filed: 09/28/20 14:09> Narrative Exam Narrative: GENERAL: This is a well-nourished, well-developed patient, in no acute distress HEAD: Atraumatic. Normocephalic. No temporal or scalp tenderness. EYES: Pupils equal round and reactive. Extraocular motions intact. No scleral icterus. No injection or drainage. ENT: Nose without bleeding, purulent drainage or septal hematoma. Throat without erythema, tonsillar hypertrophy or exudate. Uvula midline. Airway patent. Left-sided preauricular swelling, with palpable 2 x 1 cm swelling. Very slight overlying erythema. Bilateral TMs p[place]. NECK: Trachea midline. No JVD or lymphadenopathy. Supple, nontender, no meningeal signs. CARDIOVASCULAR: Regular rate and rhythm RESPIRATORY: Clear to auscultation. Breath sounds equal bilaterally. No wheezes, rales, or rhonchi. No cough. No increased respiratory effort. No accessory muscle use. Using all extremities equally GASTROINTESTINAL: Abdomen soft, non-tender, nondistended. No hepato-splenomegaly, or palpable masses. No guarding. EXTREMITIES: No clubbing, cyanosis, or edema. No joint tenderness, effusion, or edema noted. BACK: Nontender without deformity or crepitance. No flank tenderness. NEURO: AOx3. No gross cranial nerve deficit. 0 extremities equally. Clear speech. SKIN: No rash on visible skin. Initial Vital Signs Initial Vital Signs: Vital Signs Pulse Rate 98 H 09/28/20 10:23 Blood Pressure 183/106 H 09/28/20 10:23 Pulse Oximetry 98 09/28/20 10:23 <Bailey Echevarria DO - Last Filed: 09/28/20 19:21> Initial Vital Signs Initial Vital Signs: Vital Signs Pulse Rate 98 H 09/28/20 10:23 Blood Pressure 183/106 H 09/28/20 10:23 Pulse Oximetry 98 09/28/20 10:23 Scores <STACIA Gutierrez - Last Filed: 09/28/20 14:09> GCS Cyndi coma scale eye opening: Spontaneous Cyndi coma scale verbal response: Orientated Cyndi coma scale motor response: Obey commands Cyndi coma scale total score: 15 Course <STACIA Gutierrez - Last Filed: 09/28/20 14:09> Orders Ordered: ED Orders 09/28/20 10:59 EKG-12 Lead Stat 09/28/20 11:15 Complete Blood Count AUTO DIFF Stat Comprehensive Metabolic Panel Stat Magnesium Stat Partial Thromboplastin Time Stat Prothrombin Time INR Stat Troponin & CK Cardiac Panel Stat 09/28/20 12:36 CT head/brain wo con Stat CT soft tissue neck w con Stat Vital Signs Vital signs: Vital Signs - 8 hr 09/28/20 11:30 09/28/20 12:00 09/28/20 12:31 Pulse Rate 70 69 80 Respiratory Rate 15 13 11 L Blood Pressure 126/83 123/80 Pulse Oximetry 97 97 99 09/28/20 12:33 09/28/20 13:00 Pulse Rate 72 70 Respiratory Rate 13 21 Blood Pressure 123/78 124/79 Pulse Oximetry 99 98 <Bailey Echevarria DO - Last Filed: 09/28/20 19:21> Orders Ordered: ED Orders 09/28/20 10:59 EKG-12 Lead Stat 09/28/20 11:15 Complete Blood Count AUTO DIFF Stat Comprehensive Metabolic Panel Stat Magnesium Stat Partial Thromboplastin Time Stat Prothrombin Time INR Stat Troponin & CK Cardiac Panel Stat 09/28/20 12:36 CT head/brain wo con Stat CT soft tissue neck w con Stat Vital Signs Vital signs: Vital Signs - 8 hr 09/28/20 11:30 09/28/20 12:00 09/28/20 12:31 Pulse Rate 70 69 80 Respiratory Rate 15 13 11 L Blood Pressure 126/83 123/80 Pulse Oximetry 97 97 99 09/28/20 12:33 09/28/20 13:00 Pulse Rate 72 70 Respiratory Rate 13 21 Blood Pressure 123/78 124/79 Pulse Oximetry 99 98 MDM - Headache <Paulina Wilsonmer, LABORATORY SPECIALIST-BC - Last Filed: 09/28/20 14:09> Lab Data Attestation: I reviewed the patient's lab results. Result diagrams: 09/28/20 11:15 09/28/20 11:15 Labs: Lab Results 09/28/20 09/28/20 09/28/20 Range/Units 11:15 11:15 11:15 WBC 3.9 L (4.5-11.0) X10^3/uL RBC 4.80 (4.5-5.9) X10^6/uL Hgb 13.0 L (13.5-17.5) g/dL Hct 40.2 L (41-53) % MCV 83.8 (80-100) fL MCH 27.1 (26-34) PG MCHC 32.3 (30-36) % RDW 14.8 (11.6-14.8) % Plt Count 190 (150-400) X10^3/uL Neut % (Auto) 71.6 (50-75) % Lymph % (Auto) 17.7 L (25-40) % [place] % (Auto) 9.1 (3-14) % Eos % (Auto) 0.9 L (2-4) % Baso % (Auto) 0.7 (0-2) % Neut # (Auto) 2800 (0712-1241) /uL Lymph # (Auto) 700 L (2780-7337) /uL [place] # (Auto) 400 (0-900) /uL Eos # (Auto) 0 (0-450) /uL Baso # (Auto) 0 (0-100) /uL PT 12.0 (10.1-12.7) SECONDS INR 1.0 (0.9-1.3) APTT 28 (26.4-36.2) SECONDS Sodium 137 (137-145) mmol/L Potassium 4.0 (3.4-5.1) mmol/L Chloride 104 (98-107) mmol/L Carbon Dioxide 28 (22-32) mmol/L BUN 13 (9-20) mg/dL Creatinine 1.00 (0.66-1.25) mg/dL Estimated GFR > 60.0 (>60) mL/min BUN/Creatinine Ratio 13.0 (6-22) Glucose 246 H (80-110) mg/dL Calcium 9.3 (8.4-10.2) mg/dL Magnesium (1.6-2.3) mg/dL Total Bilirubin 0.3 (0.2-1.3) mg/dL AST 22 (17-59) IU/L ALT 20 (<50) IU/L Alkaline Phosphatase 41 (38-126) U/L Total Creatine Kinase 156 (55-170) U/L CK-MB (CK-2) 0.89 (<2.37) ng/mL CK-MB (CK-2) Rel Index 0.6 L (1.5-5.0) % Troponin I < 0.012 (0.01-0.034) ng/mL Total Protein 7.0 (6.3-8.2) g/dL Albumin 4.0 (3.5-5.0) g/dL Globulin 3.0 (1.7-4.1) g/dL Albumin/Globulin Ratio 1.3 (1.0-2.8) 09/28/ Range/Units 11:15 WBC (4.5-11.0) X10^3/uL RBC (4.5-5.9) X10^6/uL Hgb (13.5-17.5) g/dL Hct (41-53) % MCV (80-100) fL MCH (26-34) PG MCHC (30-36) % RDW (11.6-14.8) % Plt Count (150-400) X10^3/uL Neut % (Auto) (50-75) % Lymph % (Auto) (25-40) % [place] % (Auto) (3-14) % Eos % (Auto) (2-4) % Baso % (Auto) (0-2) % Neut # (Auto) (5207-0300) /uL Lymph # (Auto) (4032-2150) /uL [place] # (Auto) (0-900) /uL Eos # (Auto) (0-450) /uL Baso # (Auto) (0-100) /uL PT (10.1-12.7) SECONDS INR (0.9-1.3) APTT (26.4-36.2) SECONDS Sodium (137-145) mmol/L Potassium (3.4-5.1) mmol/L Chloride (98-107) mmol/L Carbon Dioxide (22-32) mmol/L BUN (9-20) mg/dL Creatinine (0.66-1.25) mg/dL Estimated GFR (>60) mL/min BUN/Creatinine Ratio (6-22) Glucose (80-110) mg/dL Calcium (8.4-10.2) mg/dL Magnesium 1.9 (1.6-2.3) mg/dL Total Bilirubin (0.2-1.3) mg/dL AST (17-59) IU/L ALT (<50) IU/L Alkaline Phosphatase (38-126) U/L Total Creatine Kinase (55-170) U/L CK-MB (CK-2) (<2.37) ng/mL CK-MB (CK-2) Rel Index (1.5-5.0) % Troponin I (0.01-0.034) ng/mL Total Protein (6.3-8.2) g/dL Albumin (3.5-5.0) g/dL Globulin (1.7-4.1) g/dL Albumin/Globulin Ratio (1.0-2.8) Imaging Data ct neck : Radiologist's Impression: [address] [place] [id number] Scan ReportSigned Patient: Juan Mosquera HMR#: [id number]: 7Acct:[id number]/Sex: 65 / MDate of Service: 09/28/20Loc: EDAccession Number: [id number] Procedure: CT soft tissue neck w con Ordering Provider: Paulina Boyle-BC PROCEDURE: CT SOFT TISSUE NECK W CON INDICATIONS: L preauricular swelling TECHNIQUE: After the administration of intravenous contrast, 3.0 mm axial sections acquired from the sella to the aortic arch. Additional oblique axial 3.0 mm sections acquired through the pharynx. 3 mm thick coronal and sagittal reformats were generated. For radiation dose reduction, the following was used: automated exposure control. COMPARISON: [facility], CT, HEAD^N1_HEAD_CT_WITHOUT_CONTRAST (ADULT), 09/28/2020, 12:23. FINDINGS: Image quality: Excellent. Lymph nodes: No enlarged lymph nodes seen throughout the neck. Vessels: Visualized vasculature appears patent. Neck spaces: There is asymmetry of the piriform sinuses, with the left piriform sinus obscured compared to the right, as on series 6, image 45 and on series 9, image 47. The oropharynx and nasopharynx demonstrate no mucosal lesions. The vocal cords, false vocal cords, epiglottis, vallecula, and tongue base all appear normal. Extramucosal spaces appear unremarkable. Glands: The area of clinical concern is marked overlying the left submandibular gland. The left submandibular gland is slightly enlarged and hyperenhancing compared to the right submandibular gland. However, no lizeth, discrete masses are identified. No parotid duct dilatation can be seen. No definite stones are seen. No lizeth enlarged intraparotid lymph nodes are seen. The submandibular glands appear normal. Thyroid gland demonstrates no significant abnormality . Miscellaneous: Visualized brain and orbits appear normal. Lung apices appear clear. Superficial soft tissues appear normal. Bones: No suspicious bony lesions. Visualized sinuses and mastoids appear unremarkable. Age-appropriate bony degenerative changes are seen. IMPRESSION: These imaging findings are most compatible with generalized left parotitis, with generalized swelling and hyperenhancement of the left parotid gland compared to the right. No lizeth underlying masses are detected. Please consider a follow-up contrast-enhanced neck CT in 2-3 months to assure resolution. Asymmetry is seen of the piriform sinuses, which may be related to retained secretions. However, differential diagnosis also includes neoplasm. If clinically appropriate, please consider additional evaluation with laryngoscopy. Note: Findings and recommendations discussed by telephone with Dr. Echevarria at 11:47 a.m. [place] time on September 28, 2020. Dictated by: Morgan Pedroza M.D. on 09/28/2020 at 11:41 Approved by: Morgan Pedroza M.D. on 09/28/2020 at 11:49 CT scan - head: Radiologist's Impression: [address] [place] [address] [id number] Scan ReportSigned Patient: Juan Mosquera HMR#: [id number]: 7Acct:[id number]/Sex: 65 / MDate of Service: 09/28/20Loc: EDAccession Number: [id number] Procedure: CT head/brain wo con [facility] CT HEAD/BRAIN WO CON INDICATIONS: headache x 3 months TECHNIQUE: Noncontrast 4.5 mm thick angled axial sections acquired from the foramen magnum to the vertex, with coronal and sagittal reformats. For radiation dose reduction, the following was used: automated exposure control, adjustment of mA and/or kV according to patient size. COMPARISON: [facility], CT, HEAD WITHOUT CONTRAST, 08/19/2014, 12:29. [facility], CT, CT SOFT TISSUE NECK W CON, 09/28/2020, 12:23. [facility], CT, CT HEAD/BRAIN WO CON, 07/31/2018, 13:59. FINDINGS: Image quality: Excellent. CSF spaces: Basal cisterns are patent. No extra-axial fluid collections. The ventricles are symmetric in size and shape. Brain: No intracranial bleeds or masses. There is cerebral volume loss for age, with resultant ventricular and sulcal prominence. There are periventricular and deep white matter chronic small vessel ischemic changes. There is intracranial internal carotid artery atherosclerosis. Skull and face: Calvarium and visualized facial bones appear intact, without suspicious lesions. Sinuses: Visualized sinuses and mastoids are clear. IMPRESSION: Unremarkable intracranial study, without an imaging explanation found for the patient's presenting history of chronic headache. No significant change from 2018. Dictated by: Morgan Pedroza M.D. on 09/28/2020 at 11:39 Approved by: Morgan Pedroza M.D. on 09/28/2020 at 11:41 MDM Narrative Medical decision making narrative: The patient is a 65-year-old male who presents with multiple complaints that have been ongoing since July. Initial concern for acute neurological event given tingling into left-sided face, however given duration of symptoms I do not believe there is an acute etiology. However given his duration of headache, CT was taken and found to be negative. However he has shown to have parotitis, correlating with his exam. I did discuss at length with the patient that he has asymmetry in his sinuses, encouraged follow-up with primary care provider in ENT to rule out malignant cause. The patient states that he is trying to get in with ENT and does have peripheral. Encouraged follow-up with primary care provider in the next few days as well as come back to the ER for any acute concerns. Patient has no questions or concerns upon discharge and states understanding return precautions as well as follow-up care. <Bailey Echevarria, DO - Last Filed: 09/28/20 19:21> Lab Data Labs: Lab Results 09/28/20 09/28/20 09/28/20 Range/Units 11:15 11:15 11:15 WBC 3.9 L (4.5-11.0) X10^3/uL RBC 4.80 (4.5-5.9) X10^6/uL Hgb 13.0 L (13.5-17.5) g/dL Hct 40.2 L (41-53) % MCV 83.8 (80-100) fL MCH 27.1 (26-34) PG MCHC 32.3 (30-36) % RDW 14.8 (11.6-14.8) % Plt Count 190 (150-400) X10^3/uL Neut % (Auto) 71.6 (50-75) % Lymph % (Auto) 17.7 L (25-40) % [place] % (Auto) 9.1 (3-14) % Eos % (Auto) 0.9 L (2-4) % Baso % (Auto) 0.7 (0-2) % Neut # (Auto) 2800 (9413-3236) /uL Lymph # (Auto) 700 L (5703-9674) /uL [place] # (Auto) 400 (0-900) /uL Eos # (Auto) 0 (0-450) /uL Baso # (Auto) 0 (0-100) /uL PT 12.0 (10.1-12.7) SECONDS INR 1.0 (0.9-1.3) APTT 28 (26.4-36.2) SECONDS Sodium 137 (137-145) mmol/L Potassium 4.0 (3.4-5.1) mmol/L Chloride 104 (98-107) mmol/L Carbon Dioxide 28 (22-32) mmol/L BUN 13 (9-20) mg/dL Creatinine 1.00 (0.66-1.25) mg/dL Estimated GFR > 60.0 (>60) mL/min BUN/Creatinine Ratio 13.0 (6-22) Glucose 246 H (80-110) mg/dL Calcium 9.3 (8.4-10.2) mg/dL Magnesium (1.6-2.3) mg/dL Total Bilirubin 0.3 (0.2-1.3) mg/dL AST 22 (17-59) IU/L ALT 20 (<50) IU/L Alkaline Phosphatase 41 (38-126) U/L Total Creatine Kinase 156 (55-170) U/L CK-MB (CK-2) 0.89 (<2.37) ng/mL CK-MB (CK-2) Rel Index 0.6 L (1.5-5.0) % Troponin I < 0.012 (0.01-0.034) ng/mL Total Protein 7.0 (6.3-8.2) g/dL Albumin 4.0 (3.5-5.0) g/dL Globulin 3.0 (1.7-4.1) g/dL Albumin/Globulin Ratio 1.3 (1.0-2.8) 09/28/ Range/Units 11:15 WBC (4.5-11.0) X10^3/uL RBC (4.5-5.9) X10^6/uL Hgb (13.5-17.5) g/dL Hct (41-53) % MCV (80-100) fL MCH (26-34) PG MCHC (30-36) % RDW (11.6-14.8) % Plt Count (150-400) X10^3/uL Neut % (Auto) (50-75) % Lymph % (Auto) (25-40) % [place] % (Auto) (3-14) % Eos % (Auto) (2-4) % Baso % (Auto) (0-2) % Neut # (Auto) (7465-1482) /uL Lymph # (Auto) (5827-9467) /uL [place] # (Auto) (0-900) /uL Eos # (Auto) (0-450) /uL Baso # (Auto) (0-100) /uL PT (10.1-12.7) SECONDS INR (0.9-1.3) APTT (26.4-36.2) SECONDS Sodium (137-145) mmol/L Potassium (3.4-5.1) mmol/L Chloride (98-107) mmol/L Carbon Dioxide (22-32) mmol/L BUN (9-20) mg/dL Creatinine (0.66-1.25) mg/dL Estimated GFR (>60) mL/min BUN/Creatinine Ratio (6-22) Glucose (80-110) mg/dL Calcium (8.4-10.2) mg/dL Magnesium 1.9 (1.6-2.3) mg/dL Total Bilirubin (0.2-1.3) mg/dL AST (17-59) IU/L ALT (<50) IU/L Alkaline Phosphatase (38-126) U/L Total Creatine Kinase (55-170) U/L CK-MB (CK-2) (<2.37) ng/mL CK-MB (CK-2) Rel Index (1.5-5.0) % Troponin I (0.01-0.034) ng/mL Total Protein (6.3-8.2) g/dL Albumin (3.5-5.0) g/dL Globulin (1.7-4.1) g/dL Albumin/Globulin Ratio (1.0-2.8) Discharge Plan Departure Patient Disposition: Home Clinical Impression: Parotitis Instructions: DI for Parotitis-Adult Activity Restrictions/Additional Instructions: Thank you for trusting us with your care today. As discussed, your head CT had no acute findings. However your imaging is concerning for parotiditis, so I sent a prescription of Augmentin to [facility] in [place]. Please take this with probiotic or yogurt to help prevent antibiotic related side effects such as diarrhea. Please use [id number] medications as needed and able. As discussed, your encouraged to follow up with primary care provider in the next few days as well as an ear nose throat provider. As discussed, there is and asymmetry of your sinuses. It is important to investigate this to help rule out any malignant process. Please come back to the emergency department for any acute such as concern of heart attack, stroke etcetera Prescriptions: New amoxicillin-pot clavulanate [Augmentin] 875-125 mg tablet 1 tab PO BID Qty: 20 RF: 0 No Action prednisone 10 mg Tablet 10 mg PO DAILY RF: 0 insulin glargine 100 unit/mL Solution 8 units subcut QAM RF: 0 isosorbide mononitrate 30 mg Tablet Extended Release 24 Hr 15 mg PO DAILY RF: 0 metoprolol succinate 100 mg Tablet Extended Release 24 Hr 50 mg PO DAILY RF: 0 amlodipine 5 mg Tablet 5 mg PO DAILY RF: 0 methocarbamol [Robaxin-750] 750 mg Tablet 1,500 mg PO QID PRN (Reason: Spasms) RF: 0 tamsulosin 0.4 mg Capsule 0.4 mg PO BEDTIME RF: 0 metformin 1,000 mg Tablet 1,000 mg PO BID RF: 0 triamcinolone acetonide 0.1 % Ointment 1 applic TOPICAL BID PRN (Reason: itching or rash) RF: 0 glimepiride 4 mg Tablet 4 mg PO QAM RF: 0 glucose 4 gram Tablet,Chewable 16 g PO PRN PRN (Reason: glucose of 70 mg/dl or less) RF: 0 camphor-menthol 0.5-0.5 % Lotion 1 applic TOPICAL BID PRN (Reason: pain relief) RF: 0 aspirin 81 mg Tablet,Chewable 81 mg PO DAILY RF: 0 fluocinolone 0.01 % Solution 1 applic TOPICAL DAILY PRN (Reason: rash or itching) RF: 0 hydroxychloroquine 200 mg Tablet 400 mg PO DAILY RF: 0 ibuprofen 600 mg Tablet 600 mg PO TID PRN (Reason: pain) RF: 0 colchicine 0.6 mg Tablet 2 tab PO PRN MDD 3 PRN (Reason: Gout) RF: 0 clotrimazole 1 % Cream 1 applic TOPICAL BID RF: 0 fluoride (sodium) 1.1 % Gel 1 applic Dental BEDTIME RF: 0 peg 400-propylene glycol 0.4-0.3 % Drops 1 drp ophthalmic (eye) QID PRN (Reason: Dry Eyes) RF: 0 rosuvastatin 40 mg Tablet 40 mg PO DAILY RF: 0 cholecalciferol (vitamin D3) [Vitamin D3] 1,000 unit Tablet 2,000 unit PO DAILY RF: 0 saxagliptin 5 mg Tablet 5 mg PO DAILY RF: 0 lidocaine 5 % Ointment 1 applic TOPICAL BID PRN (Reason: foot and knee pain) RF: 0 hydrocodone-acetaminophen [Deming] 5-325 mg tablet 1 tab PO Q6H PRN (Reason: pain) Qty: 10 RF: 0 omeprazole 20 mg capsule,delayed release(DR/EC) 20 mg PO DAILY Qty: 14 RF: 0 Referrals: Elise Sears MD [Primary Care Provider] - Mely Lynn MD [Non-Staff] - <Bailey Echevarria DO - Last Filed: 09/28/20 19:21> Cosign ED Attending Cosignature Attestation: I was immediately available in the department for consultation. Documentation has been reviewed. I agree with assessment and plan.
[2020-09-28 11:25] LABS: Add Manual Diff / Slide Review NO; Basophils Absolute Auto 0 /uL (0-100); Basophils Percent Auto 0.7 % (0-2); Eosinophils Absolute Auto 0 /uL (0-450); Eosinophils Percent Auto 0.9 % (2-4); Hematocrit 40.2 % (41-53); Lymphocytes Absolute Auto 700 /uL (1100-4500); Lymphocytes Percent Auto 17.7 % (25-40); Mean Corpuscular HGB Conc 32.3 % (30-36); Mean Corpuscular Hemoglobin 27.1 PG (26-34); Mean Corpuscular Volume 83.8 fL (80-100); Monocytes Absolute Auto 400 /uL (0-900); Monocytes Percent Auto 9.1 % (3-14); Neutrophils Absolute Auto 2800 /uL (1500-7000); Neutrophils Percent Auto 71.6 % (50-75); Platelet Count 190 X10^3/uL (150-400); Red Cell Distribution Width 14.8 % (11.6-14.8); White Blood Cell Count 3.9 X10^3/uL (4.5-11.0)
[2020-09-28 11:37] LABS: PTT Partial Thromboplastin Tim 28 SECONDS (26.4-36.2)
[2020-09-28 11:40] LABS: Alanine Aminotransferase 20 IU/L (<50); Albumin Globulin Ratio 1.3 (1.0-2.8); Alkaline Phosphatase 41 U/L (38-126); Aspartate Aminotransferase 22 IU/L (17-59); Bilirubin Total 0.3 mg/dL (0.2-1.3); Blood Urea Nitrogen 13 mg/dL (9-20); Calcium 9.3 mg/dL (8.4-10.2); Carbon Dioxide 28 mmol/L (22-32); Chloride 104 mmol/L (98-107); Creatine Kinase 156 U/L (55-170); Estimated Glomerular Filt Rate > 60.0 mL/min (>60); Glucose 246 mg/dL (80-110); HEMOLYSIS < 15 (0-50); Magnesium 1.9 mg/dL (1.6-2.3); Sodium 137 mmol/L (137-145)
[2020-09-28 11:50] LABS: Troponin I < 0.012 ng/mL (0.01-0.034)
[2020-09-28 11:55] LABS: CKMB % Relative Index 0.6 % (1.5-5.0); Creatine Kinase MB 0.89 ng/mL (<2.37)
--- NOTE | 2020-09-28 12:36 | DI.CT.S_ITS ---
PROCEDURE: CT SOFT TISSUE NECK W CON INDICATIONS: L preauricular swelling TECHNIQUE: After the administration of intravenous contrast, 3.0 mm axial sections acquired from the sella to the aortic arch. Additional oblique axial 3.0 mm sections acquired through the pharynx. 3 mm thick coronal and sagittal reformats were generated. For radiation dose reduction, the following was used: automated exposure control. COMPARISON: [facility], CT, HEAD^N1_HEAD_CT_WITHOUT_CONTRAST (ADULT), 09/28/2020, 12:23. FINDINGS: Image quality: Excellent. Lymph nodes: No enlarged lymph nodes seen throughout the neck. Vessels: Visualized vasculature appears patent. Neck spaces: There is asymmetry of the piriform sinuses, with the left piriform sinus obscured compared to the right, as on series 6, image 45 and on series 9, image 47. The oropharynx and nasopharynx demonstrate no mucosal lesions. The vocal cords, false vocal cords, epiglottis, vallecula, and tongue base all appear normal. Extramucosal spaces appear unremarkable. Glands: The area of clinical concern is marked overlying the left submandibular gland. The left submandibular gland is slightly enlarged and hyperenhancing compared to the right submandibular gland. However, no lizeth, discrete masses are identified. No parotid duct dilatation can be seen. No definite stones are seen. No lizeth enlarged intraparotid lymph nodes are seen. The submandibular glands appear normal. Thyroid gland demonstrates no significant abnormality . Miscellaneous: Visualized brain and orbits appear normal. Lung apices appear clear. Superficial soft tissues appear normal. Bones: No suspicious bony lesions. Visualized sinuses and mastoids appear unremarkable. Age-appropriate bony degenerative changes are seen. IMPRESSION: These imaging findings are most compatible with generalized left parotitis, with generalized swelling and hyperenhancement of the left parotid gland compared to the right. No lizeth underlying masses are detected. Please consider a follow-up contrast-enhanced neck CT in 2-3 months to assure resolution. Asymmetry is seen of the piriform sinuses, which may be related to retained secretions. However, differential diagnosis also includes neoplasm. If clinically appropriate, please consider additional evaluation with laryngoscopy. Note: Findings and recommendations discussed by telephone with Dr. Echevarria at 11:47 a.m. [place] time on September 28, 2020. Dictated by: Morgan Pedroza M.D. on 09/28/2020 at 11:41 Approved by: Morgan Pedroza M.D. on 09/28/2020 at 11:49
--- NOTE | 2020-09-28 12:36 | DI.CT.S_ITS ---
PROCEDURE: CT HEAD/BRAIN WO CON INDICATIONS: headache x 3 months TECHNIQUE: Noncontrast 4.5 mm thick angled axial sections acquired from the foramen magnum to the vertex, with coronal and sagittal reformats. For radiation dose reduction, the following was used: automated exposure control, adjustment of mA and/or kV according to patient size. COMPARISON: [facility], CT, HEAD WITHOUT CONTRAST, 08/19/2014, 12:29. [facility], CT, CT SOFT TISSUE NECK W CON, 09/28/2020, 12:23. [facility], CT, CT HEAD/BRAIN WO CON, 07/31/2018, 13:59. FINDINGS: Image quality: Excellent. CSF spaces: Basal cisterns are patent. No extra-axial fluid collections. The ventricles are symmetric in size and shape. Brain: No intracranial bleeds or masses. There is cerebral volume loss for age, with resultant ventricular and sulcal prominence. There are periventricular and deep white matter chronic small vessel ischemic changes. There is intracranial internal carotid artery atherosclerosis. Skull and face: Calvarium and visualized facial bones appear intact, without suspicious lesions. Sinuses: Visualized sinuses and mastoids are clear. IMPRESSION: Unremarkable intracranial study, without an imaging explanation found for the patient's presenting history of chronic headache. No significant change from 2018. Dictated by: Morgan Pedroza M.D. on 09/28/2020 at 11:39 Approved by: Morgan Pedroza M.D. on 09/28/2020 at 11:41
== END 2020-09-28 13:25 | disposition home or self-care (01) ==
PROVIDERS: Emergency Provider Nurse Practitioner Family; PCP Family Medicine
DX: K11.20 Sialoadenitis, unspecified (principal); R51.9 Headache, unspecified; E11.8 Type 2 diabetes mellitus with unspecified complications; Z79.4 Long term (current) use of insulin; I10 Essential (primary) hypertension; E78.5 Hyperlipidemia, unspecified; D86.9 Sarcoidosis, unspecified; I26.99 Other pulmonary embolism without acute cor pulmonale; R22.0 Localized swelling, mass and lump, head
CPT/HCPCS: 36415; 70450; 70491; 80053; 82550; 82553; 83735; 84484; 85025; 85610; 85730; 93005; 99283; 99284; Q9967

== ENCOUNTER 2020-11-05 09:35 | Emergency (ER) | payer OTHER, SELFPAY ==
[2020-11-05 09:45] VITALS: BP 159/97; PULSE 92; RESP 16; TEMP 37; O2SAT 98; BMI 30.1
--- NOTE | 2020-11-05 09:49 | PC.NURSE ---
Addendum entered by Radha Marshall R.N. 11/05/20 09:52: lumbar, sacrum area. Original Note: pt pain is lower, near coccyx.
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
[2020-11-05 10:39] LABS: Add Manual Diff / Slide Review NO; Basophils Absolute Auto 0 /uL (0-100); Basophils Percent Auto 0.9 % (0-2); Eosinophils Absolute Auto 0 /uL (0-450); Eosinophils Percent Auto 0.7 % (2-4); Hematocrit 43.1 % (41-53); Hemoglobin 13.7 g/dL (13.5-17.5); Lymphocytes Absolute Auto 1200 /uL (1100-4500); Lymphocytes Percent Auto 22.1 % (25-40); Mean Corpuscular HGB Conc 31.7 % (30-36); Mean Corpuscular Hemoglobin 26.6 PG (26-34); Monocytes Absolute Auto 500 /uL (0-900); Monocytes Percent Auto 9.4 % (3-14); Neutrophils Absolute Auto 3700 /uL (1500-7000); Neutrophils Percent Auto 66.9 % (50-75); Platelet Count 223 X10^3/uL (150-400); Red Blood Cell Count 5.14 X10^6/uL (4.5-5.9); Red Cell Distribution Width 14.8 % (11.6-14.8); White Blood Cell Count 5.5 X10^3/uL (4.5-11.0)
[2020-11-05 10:51] LABS: Alanine Aminotransferase 25 IU/L (<50); Albumin 4.3 g/dL (3.5-5.0); Albumin Globulin Ratio 1.3 (1.0-2.8); Alkaline Phosphatase 45 U/L (38-126); Aspartate Aminotransferase 25 IU/L (17-59); BUN Creatinine Ratio 13.4 (6-22); Bilirubin Total 0.3 mg/dL (0.2-1.3); Blood Urea Nitrogen 13 mg/dL (9-20); Carbon Dioxide 31 mmol/L (22-32); Chloride 102 mmol/L (98-107); Creatine Kinase 246 U/L (55-170); Estimated Glomerular Filt Rate > 60.0 mL/min (>60); Globulin 3.3 g/dL (1.7-4.1); Glucose 237 mg/dL (80-110); HEMOLYSIS < 15 (0-50); Lipase 110 U/L (23-300); Sodium 138 mmol/L (137-145); Total Protein 7.6 g/dL (6.3-8.2)
[2020-11-05 11:02] LABS: Troponin I < 0.012 ng/mL (0.01-0.034)
[2020-11-05 11:07] LABS: CKMB % Relative Index 0.5 % (1.5-5.0); Creatine Kinase MB 1.34 ng/mL (<2.37)
[2020-11-05 11:27] VITALS: BP 131/79; PULSE 89; RESP 16; O2SAT 100
== END 2020-11-05 11:27 | disposition home or self-care (01) ==
LOC: ED 11:14
PROVIDERS: Emergency Provider Emergency Medicine
DX: R07.89 Other chest pain (principal); S39.012A Strain of muscle, fascia and tendon of lower back, initial encounter; I25.10 Atherosclerotic heart disease of native coronary artery without angina pectoris; E11.9 Type 2 diabetes mellitus without complications; E78.5 Hyperlipidemia, unspecified; L29.9 Pruritus, unspecified; I10 Essential (primary) hypertension; V89.2XXA Person injured in unspecified motor-vehicle accident, traffic, initial encounter
CPT/HCPCS: 36415; 71046; 72110; 80053; 82550; 82553; 83690; 84484; 85025; 93005; 99283; 99284

== ENCOUNTER 2020-11-27 13:04 | Emergency (ER) | payer MEDICARE, OTHER, SELFPAY ==
[2020-11-27 13:28] VITALS: BP 156/90; PULSE 95; RESP 16; O2SAT 97; BMI 30.1
--- NOTE | 2020-11-27 13:30 | ED.MALEGU ---
HPI - Male Genitourinary General Chief complaint: Urogenital-Male Stated complaint: swelling in right testicle Time Seen by Provider: 11/27/20 13:21 Source: patient Mode of arrival: Ambulatory Limitations: no limitations History of Present Illness HPI Narrative: The patient is a 65-year-old male who presents with right testicular swelling left side. His he says he woke up this morning and noticed that his right testicle slightly more swollen. He denies any injury. No penile discharge. He does have a history of epididymitis in the past. MD Complaint: testicle pain (Left) and testicle swelling (Right) Related Data Home Medications Medication Instructions Recorded Confirmed amlodipine 5 mg PO DAILY 10/03/18 10/03/18 aspirin 81 mg PO DAILY 10/03/18 10/03/18 camphor-menthol 1 applic TOPICAL BID PRN 10/03/18 10/03/18 cholecalciferol (vitamin D3) 2,000 unit PO DAILY 10/03/18 10/03/18 [Vitamin D3] clotrimazole 1 applic TOPICAL BID 10/03/18 10/03/18 colchicine 2 tab PO PRN PRN MDD 3 10/03/18 10/03/18 fluocinolone 1 applic TOPICAL DAILY PRN 10/03/18 10/03/18 fluoride (sodium) 1 applic DENTAL BEDTIME 10/03/18 10/03/18 glimepiride 4 mg PO QAM 10/03/18 10/03/18 glucose 16 g PO PRN PRN 10/03/18 10/03/18 hydroxychloroquine 400 mg PO DAILY 10/03/18 10/03/18 ibuprofen 600 mg PO TID PRN 10/03/18 10/03/18 insulin glargine 8 units SUBCUT QAM 10/03/18 10/03/18 isosorbide mononitrate 15 mg PO DAILY 10/03/18 10/03/18 lidocaine 1 applic TOPICAL BID PRN 10/03/18 10/03/18 metformin 1,000 mg PO BID 10/03/18 10/03/18 methocarbamol [Robaxin-750] 1,500 mg PO QID PRN 10/03/18 10/03/18 metoprolol succinate 50 mg PO DAILY 10/03/18 10/03/18 peg 400-propylene glycol 1 drp OPHTHALMIC (EYE) QID PRN 10/03/18 10/03/18 prednisone 10 mg PO DAILY 10/03/18 10/03/18 rosuvastatin 40 mg PO DAILY 10/03/18 10/03/18 saxagliptin 5 mg PO DAILY 10/03/18 10/03/18 tamsulosin 0.4 mg PO BEDTIME 10/03/18 10/03/18 triamcinolone acetonide 1 applic TOPICAL BID PRN 10/03/18 10/03/18 Previous Rx's Medication Instructions Recorded hydrocodone-acetaminophen [Afton] 1 tab PO Q6H PRN #10 tab 10/03/18 omeprazole 20 mg PO DAILY #14 cap 01/14/20 amoxicillin-pot clavulanate 1 tab PO BID #20 tab 09/28/20 [Augmentin] cyclobenzaprine 5 mg PO TID PRN #10 tab 11/05/20 sulfamethoxazole-trimethoprim 1 tab PO BID 10 Days #20 tab 11/27/20 [Bactrim DS] Allergies Allergy/AdvReac Type Severity Reaction Status Date / Time piroxicam [PIROXICAM] Allergy Mild RASH Verified 09/28/20 10:32 Review of Systems Review of Systems Narrative: GENERAL: Denies chills,fever HEENT: Denies throat pain RESPIRATORY: Denies dyspnea, cough, wheezing CARDIOVASCULAR: Denies chest pain, palpitations GASTROINTESTINAL: Denies nausea, vomiting : See HPI MUSCULOSKELETAL: Denies extremity pain, injury SKIN: No rash, no laceration, no pruritus NEUROLOGIC: Denies weakness, dizziness, headache, numbness 8 point review of systems is negative except for those stated above and HPI Patient History Medical History (Updated 11/27/20 @ 15:16 by Bailey Echevarria DO) Coronary artery disease Diabetes mellitus Dyslipidemia Hypertension Sarcoid Surgical History H/O toe surgery Social History Smoking Status: Never smoker alcohol intake: never substance use type: does not use Smoking Status: Never smoker alcohol intake frequency: 0-2 drinks per day Substance Use Type: does not use Exam Initial Vital Signs Initial Vital Signs: Vital Signs Pulse Rate 95 H 11/27/20 13:28 Respiratory Rate 16 11/27/20 13:28 Blood Pressure 156/90 H 11/27/20 13:28 Pulse Oximetry 97 11/27/20 13:28 GENERAL: Well-appearing, well-nourished and in no acute distress. HEENT: Head atraumatic,EOMI, pupils reactive, face symmetric, moist mucous membranes CARDIOVASCULAR: Regular rate and rhythm without murmurs, rubs or gallops. RESPIRATORY: Breath sounds equal bilaterally, no wheezes rales or rhonchi. ABDOMEN: Soft, nontender. Normoactive bowel sounds all 4 quadrants. No guarding or rebound. : Nurse Rosaline present for exam. He does have some mild swelling on the right testicle no significant erythema mild tenderness on the superior for no hernia appreciated. Left testicle is mild tenderness no hernia appreciated no erythema EXTREMITIES: Normal range of motion, no clubbing or edema. Neurovascularly intact NEUROLOGICAL: Alert and oriented x4.Normal gait and speech. Cranial nerves II through XII grossly intact. SKIN: Warm, dry, no laceration, no petechiae, no rashes or lesions. Course Orders Ordered: ED Orders 11/27/20 13:30 Urinalysis and Microscopic Stat 11/27/20 13:39 US scrotum Stat Vital Signs Vital signs: Vital Signs - 8 hr 11/27/20 13:28 11/27/20 15:39 Temperature 98.4 F Pulse Rate 95 H 88 Respiratory Rate 16 16 Blood Pressure 156/90 H 144/72 H Pulse Oximetry 97 97 MDM - Male Genitourinary Lab Data Attestation: I reviewed the patient's lab results. Labs: Lab Results 11/27/20 Range/Units 13:30 Urine Color Yellow Urine Appearance Sl cloudy Urine pH 5.0 (4.5-8.0) Ur Specific [place] 1.020 (1.000-1.035) Urine Protein Negative (Negative) Urine Glucose (UA) 2+ H (Negative) g/dL Urine Ketones Trace H (NEGATIVE) Urine Occult Blood Negative (Negative) Urine Nitrate Negative (Negative) Urine Bilirubin Negative (NEGATIVE) Urine Urobilinogen 0.2 (0.2) E.U./dL Ur Leukocyte Esterase Trace H (NEGATIVE) Urine RBC None seen (0-5/HPF) Urine WBC 1-5/hpf (0-5/HPF) Ur Squamous Epith Cells 0-1 /hpf (0-5/HPF) Urine Bacteria None seen (None) Ur Culture Indicated? Cult not indicated Micro UA Comment [employer] Imaging Data US scrotum: Radiologist's Impression: PROCEDURE: US SCROTUM INDICATIONS: right swelling, left pain TECHNIQUE: Real-time scanning was performed of the scrotum and testicles, with image documentation. Color and pulse Doppler interrogation was performed of both testicles. COMPARISON: [facility], , US SCROTUM, 10/10/2019, 14:54. FINDINGS: Right: Testicle is normal in size at 3.9 x 2.6 x 3.0 cm, and homogenous in echotexture. Normal testicular flow. Thickened epididymis with increased vascularity. There is a mild hydrocele. No varicocele. Overlying scrotal skin is increased in thickness. Left: Testicle is normal in size at 3.7 x 1.7 x 2.8 cm, and homogeneous in echotexture. Epididymis is normal in overall size and morphology. No hydrocele or varicoceles. Overlying scrotal skin is normal in thickness. Doppler: Color and pulse Doppler demonstrate normal and symmetric arterial flow in both testicles. IMPRESSION: Findings are consistent with right epididymitis without orchitis. No evidence of testicular torsion. Dictated by: Saw Lynn M.D. on 11/27/2020 at 14:59 MDM Narrative Medical decision making narrative: The patient is here with happily at this time STD I believe to be low risk. He is on hydroxychloroquine for his sarcoidosis in does have cardiac history. Due to prolonged QT interaction with Levaquin I will put put him on Bactrim for 10 days. He overall appears well. Discharge Plan Departure Patient Disposition: Home Clinical Impression: Epididymitis Instructions: Epididymitis Activity Restrictions/Additional Instructions: *You have been diagnosed with epididymitis right side *What to do: Continue to wear supportive underwear, antibiotics should help to decrease pain and swelling *Continue to take medications as directed Bactrim 1 tablet twice a day for 10 days--> SENT TO [facility] [place] 1 ibuprofen 600 mg every 6-8 hours as needed for [id number] pain *Follow up with your primary care provider in 2-3 days *Return to ER if you should have increasing pain redness swelling or any new, worsening or concerning symptoms Prescriptions: New sulfamethoxazole-trimethoprim [Bactrim DS] 800-160 mg tablet 1 tab PO BID 10 Days Qty: 20 RF: 0 No Action cyclobenzaprine 5 mg tablet 5 mg PO TID PRN (Reason: muscle spasm) Qty: 10 RF: 0 prednisone 10 mg Tablet 10 mg PO DAILY RF: 0 insulin glargine 100 unit/mL Solution 8 units subcut QAM RF: 0 isosorbide mononitrate 30 mg Tablet Extended Release 24 Hr 15 mg PO DAILY RF: 0 metoprolol succinate 100 mg Tablet Extended Release 24 Hr 50 mg PO DAILY RF: 0 amlodipine 5 mg Tablet 5 mg PO DAILY RF: 0 methocarbamol [Robaxin-750] 750 mg Tablet 1,500 mg PO QID PRN (Reason: Spasms) RF: 0 tamsulosin 0.4 mg Capsule 0.4 mg PO BEDTIME RF: 0 metformin 1,000 mg Tablet 1,000 mg PO BID RF: 0 triamcinolone acetonide 0.1 % Ointment 1 applic TOPICAL BID PRN (Reason: itching or rash) RF: 0 glimepiride 4 mg Tablet 4 mg PO QAM RF: 0 glucose 4 gram Tablet,Chewable 16 g PO PRN PRN (Reason: glucose of 70 mg/dl or less) RF: 0 camphor-menthol 0.5-0.5 % Lotion 1 applic TOPICAL BID PRN (Reason: pain relief) RF: 0 aspirin 81 mg Tablet,Chewable 81 mg PO DAILY RF: 0 fluocinolone 0.01 % Solution 1 applic TOPICAL DAILY PRN (Reason: rash or itching) RF: 0 hydroxychloroquine 200 mg Tablet 400 mg PO DAILY RF: 0 ibuprofen 600 mg Tablet 600 mg PO TID PRN (Reason: pain) RF: 0 colchicine 0.6 mg Tablet 2 tab PO PRN MDD 3 PRN (Reason: Gout) RF: 0 clotrimazole 1 % Cream 1 applic TOPICAL BID RF: 0 fluoride (sodium) 1.1 % Gel 1 applic Dental BEDTIME RF: 0 peg 400-propylene glycol 0.4-0.3 % Drops 1 drp ophthalmic (eye) QID PRN (Reason: Dry Eyes) RF: 0 rosuvastatin 40 mg Tablet 40 mg PO DAILY RF: 0 cholecalciferol (vitamin D3) [Vitamin D3] 1,000 unit Tablet 2,000 unit PO DAILY RF: 0 saxagliptin 5 mg Tablet 5 mg PO DAILY RF: 0 lidocaine 5 % Ointment 1 applic TOPICAL BID PRN (Reason: foot and knee pain) RF: 0 hydrocodone-acetaminophen [Afton] 5-325 mg tablet 1 tab PO Q6H PRN (Reason: pain) Qty: 10 RF: 0 omeprazole 20 mg capsule,delayed release(DR/EC) 20 mg PO DAILY Qty: 14 RF: 0 amoxicillin-pot clavulanate [Augmentin] 875-125 mg tablet 1 tab PO BID Qty: 20 RF: 0
[2020-11-27 13:36] LABS: Bacteria Urine None Seen; RBC Urine None Seen (0-5/HPF)
[2020-11-27 13:37] LABS: Bilirubin Urine UA NEGATIVE (NEGATIVE); Color Urine UA YELLOW; Glucose Urine UA 2+ g/dL (Negative); Ketones Urine UA TRACE (NEGATIVE); Leukocyte Esterase Urine UA TRACE (NEGATIVE); Nitrite Urine UA NEGATIVE (Negative); Occult Blood Urine UA NEGATIVE (Negative); Protein Urine UA NEGATIVE (Negative); Urobilinogen Urine UA 0.2 E.U./dL (0.2)
--- NOTE | 2020-11-27 13:39 | DI.US.S_ITS ---
PROCEDURE: US SCROTUM INDICATIONS: right swelling, left pain TECHNIQUE: Real-time scanning was performed of the scrotum and testicles, with image documentation. Color and pulse Doppler interrogation was performed of both testicles. COMPARISON: [facility], , US SCROTUM, 10/10/2019, 14:54. FINDINGS: Right: Testicle is normal in size at 3.9 x 2.6 x 3.0 cm, and homogenous in echotexture. Normal testicular flow. Thickened epididymis with increased vascularity. There is a mild hydrocele. No varicocele. Overlying scrotal skin is increased in thickness. Left: Testicle is normal in size at 3.7 x 1.7 x 2.8 cm, and homogeneous in echotexture. Epididymis is normal in overall size and morphology. No hydrocele or varicoceles. Overlying scrotal skin is normal in thickness. Doppler: Color and pulse Doppler demonstrate normal and symmetric arterial flow in both testicles. IMPRESSION: Findings are consistent with right epididymitis without orchitis. No evidence of testicular torsion. Dictated by: Saw Lynn M.D. on 11/27/2020 at 14:59 Approved by: Saw Lynn M.D. on 11/27/2020 at 15:02
[2020-11-27 13:40] LABS: Appearance Urine UA SL CLOUDY
[2020-11-27 13:45] LABS: Culture Indicated Urine Cult Not Indicated; Squamous Epithelial Cell Urine 0-1 /HPF (0-5/HPF); WBC Urine 1-5/HPF (0-5/HPF)
[2020-11-27 15:39] VITALS: BP 144/72; PULSE 88; RESP 16; TEMP 36.9; O2SAT 97
== END 2020-11-27 15:39 | disposition home or self-care (01) ==
PROVIDERS: Emergency Provider Emergency Medicine
DX: N45.1 Epididymitis (principal); I25.10 Atherosclerotic heart disease of native coronary artery without angina pectoris; E11.9 Type 2 diabetes mellitus without complications; E78.5 Hyperlipidemia, unspecified; I10 Essential (primary) hypertension
CPT/HCPCS: 76870; 81001; 99283

== ENCOUNTER 2021-05-16 14:55 | Emergency (ER) | payer OTHER, SELFPAY ==
[2021-05-16 15:08] VITALS: BP 131/80; PULSE 90; RESP 18; TEMP 36.4; O2SAT 98
--- NOTE | 2021-05-16 20:31 | ED.BACK ---
HPI - Back Pain/Injury General Chief Complaint: Back Pain/Injury Stated Complaint: NUMBNESS OF FINGERS AND ARMS LT SHOULDER PAIN Time Seen by Provider: 05/16/21 20:00 Source: patient History of Present Illness HPI Narrative: 66-year-old male nonsmoker with extensive medical history including hypertension, hyperlipidemia and diabetes as well as chronic neck pain presents with a worsening his upper extremity symptoms. He has been having upper extremity numbness and tingling for many months but states over the past week or so it seems to have gotten worse. He denies any weakness. He denies any new injury. He denies any fever or chills and takes no blood thinners. He states [facility] 2 ago but does not get the results until next week. Related Data Home Medications Medication Instructions Recorded Confirmed amlodipine 5 mg tablet 5 mg PO DAILY 10/03/18 10/03/18 aspirin 81 mg chewable tablet 81 mg PO DAILY 10/03/18 10/03/18 camphor-menthol 0.5 %-0.5 % lotion 1 applic TOPICAL BID PRN 10/03/18 10/03/18 cholecalciferol (vitamin D3) 25 2,000 unit PO DAILY 10/03/18 10/03/18 mcg (1,000 unit) tablet (Vitamin D3) clotrimazole 1 % topical cream 1 applic TOPICAL BID 10/03/18 10/03/18 colchicine 0.6 mg tablet 2 tab PO PRN PRN MDD 3 10/03/18 10/03/18 fluocinolone 0.01 % topical 1 applic TOPICAL DAILY PRN 10/03/18 10/03/18 solution fluoride (sodium) 1.1 % dental gel 1 applic DENTAL BEDTIME 10/03/18 10/03/18 glimepiride 4 mg tablet 4 mg PO QAM 10/03/18 10/03/18 glucose 4 gram chewable tablet 16 g PO PRN PRN 10/03/18 10/03/18 hydroxychloroquine 200 mg tablet 400 mg PO DAILY 10/03/18 10/03/18 ibuprofen 600 mg tablet 600 mg PO TID PRN 10/03/18 10/03/18 insulin glargine 100 unit/mL 8 units SUBCUT QAM 10/03/18 10/03/18 subcutaneous solution isosorbide mononitrate 30 mg 15 mg PO DAILY 10/03/18 10/03/18 tablet,extended release 24 hr lidocaine 5 % topical ointment 1 applic TOPICAL BID PRN 10/03/18 10/03/18 metformin 1,000 mg tablet 1,000 mg PO BID 10/03/18 10/03/18 methocarbamol 750 mg tablet 1,500 mg PO QID PRN 10/03/18 10/03/18 (Robaxin-750) metoprolol succinate 100 mg 50 mg PO DAILY 10/03/18 10/03/18 tablet,extended release 24 hr peg 400-propylene glycol 0.4 %-0.3 1 drp OPHTHALMIC (EYE) QID PRN 10/03/18 10/03/18 % eye drops prednisone 10 mg tablet 10 mg PO DAILY 10/03/18 10/03/18 rosuvastatin 40 mg tablet 40 mg PO DAILY 10/03/18 10/03/18 saxagliptin 5 mg tablet 5 mg PO DAILY 10/03/18 10/03/18 tamsulosin 0.4 mg capsule 0.4 mg PO BEDTIME 10/03/18 10/03/18 triamcinolone acetonide 0.1 % 1 applic TOPICAL BID PRN 10/03/18 10/03/18 topical ointment Previous Rx's Medication Instructions Recorded hydrocodone 5 mg-acetaminophen 325 1 tab PO Q6H PRN #10 tab 10/03/18 mg tablet (Ancram) omeprazole 20 mg capsule,delayed 20 mg PO DAILY #14 cap 01/14/20 release amoxicillin 875 mg-potassium 1 tab PO BID #20 tab 09/28/20 clavulanate 125 mg tablet (Augmentin) cyclobenzaprine 5 mg tablet 5 mg PO TID PRN #10 tab 11/05/20 methylprednisolone 4 mg tablets in See Rx Instructions .ROUTE 05/16/21 a dose pack (Medrol (Dinh)) .COMPLEX #21 ea Allergies Allergy/AdvReac Type Severity Reaction Status Date / Time piroxicam [PIROXICAM] Allergy Mild RASH Verified 09/28/20 10:32 Review of Systems Review of Systems Narrative: GENERAL: Denies chills, fatigue, malaise, fever, sweats. HEENT: Denies sinus pain, ear pain, sore throat, difficulty swallowing, dizziness. RESPIRATORY: Denies dyspnea, cough, wheezing, hemoptysis, sputum. CARDIOVASCULAR: Denies chest pain, palpitations, orthopnea, edema, GASTROINTESTINAL: Denies nausea, vomiting, abdominal pain, diarrhea, constipation, melena. : Denies dysuria, frequency, incontinence, hematuria, urinary retention. MUSCULOSKELETAL: See HPI SKIN: Denies rash, skin lesions, or other NEUROLOGIC: See HPI. PSYCHIATRIC: No concerning psychosocial issues. 12 point review of systems is negative except for those stated above Patient History Medical History (Updated 05/16/21 @ 22:05 by Chandana Hernandez DO) Coronary artery disease Diabetes mellitus Dyslipidemia Hypertension Sarcoid Surgical History H/O toe surgery Social History Smoking Status: Never smoker alcohol intake: never substance use type: does not use Smoking Status: Never smoker alcohol intake frequency: 0-2 drinks per day Substance Use Type: does not use Exam Narrative Exam Narrative: GENERAL: [66] year old patient appears stated age. Well-developed patient, in mild distress. HEAD: Atraumatic. Normocephalic. EYES: Pupils equal round and reactive. Extraocular motions intact. No scleral icterus. No injection or drainage. ENT: Nose without bleeding, purulent drainage. Throat without erythema, tonsillar hypertrophy or exudate. Airway patent. NECK: Trachea midline. Non tender, no change with axial load. No measurable weakness of bilateral extremities, 5/5 strength in all modalities) CARDIOVASCULAR: Regular rate and rhythm without murmurs, gallops, or rubs. RESPIRATORY: Clear to auscultation. Breath sounds equal bilaterally. No wheezes, rales, or rhonchi. GASTROINTESTINAL: Abdomen soft, non-tender, nondistended. EXTREMITIES: No edema or joint tenderness. BACK: Nontender without deformity or crepitance. No flank tenderness. NEURO: AOx3. SKIN: No rash or erythema of visible areas Initial Vital Signs Initial Vital Signs: Vital Signs Temperature 97.5 F L 05/16/21 15:08 Pulse Rate 90 05/16/21 15:08 Respiratory Rate 18 05/16/21 15:08 Blood Pressure 131/80 05/16/21 15:08 Pulse Oximetry 98 05/16/21 15:08 Course Orders Ordered: ED Orders 05/16/21 20:57 CT cervical spine wo con Stat Vital Signs Vital signs: Vital Signs - 8 hr 05/16/21 22:03 Pulse Rate 66 Blood Pressure 120/77 Pulse Oximetry 97 MDM - Back Pain/Injury Imaging Data CT - cervical spine: Radiologist's Impression: Juan Mosquera H 66 M [address] [id number] Scan ReportSigned Patient: Juan Mosquera HMR#: [id number]: 1955cct:[id number]/Sex: 66 / MDate of Service: 05/16/21Loc: EDAccession Number: [id number] Procedure: CT cervical spine wo con Ordering Provider: Chandana Hernandez D.O. PROCEDURE: CT CERVICAL SPINE WO CON INDICATIONS: chronic, but worsening B/L arm tingling TECHNIQUE: Noncontrast 3 mm thick sections acquired from the skull base to the T4 level. Sagittal and coronal reformats were then constructed. For radiation dose reduction, the following was used: automated exposure control, adjustment of mA and/or kV according to patient size. COMPARISON: [facility], CT, CT CERVICAL SPINE WO CON, 07/31/2018, 13:59. FINDINGS: Image quality: Excellent. Bones: No fractures or dislocations. Mild degenerative change of the cervical spine. No significant interval change appreciated. Visualized superior ribs are intact. Soft tissues: Prevertebral soft tissues are normal in thickness. No paravertebral hematomas. No apical pneumothoraces. IMPRESSION: No acute osseous abnormality. Mild degenerative change in the cervical spine. Dictated by: Andrzej Leon M.D. on 05/16/2021 at 21:44 Approved by: Andrzej Leon M.D. on 05/16/2021 at 21:47 Discharge Plan Departure Patient Disposition: Home Clinical Impression: Cervical radiculopathy Instructions: DI for Numbness/Tingling Activity Restrictions/Additional Instructions: *You have been diagnosed with [acute on chronic numbness and tingling of bilateral upper extremities is most likely due to a cervical radiculopathy, today's physical exam and CT scan are very reassuring.] *What to do: * please take an extra gabapentin nightly. Please continue to take your regular medications as directed. [x ] New medication prescriptions sent to your pharmacy: [ ] [ ] New medication written as a paper prescription [ ] No new medications given *Please follow up with your primary care provider in 2-3 days, call for an appointment. Let them know you were seen in the Emergency Department and that we ask that you be seen in follow up. We will electronically transmit a record of today's note if your PCP is in our system * please contact your primary care provider and keep track of your blood sugars. I have added some extra steroid to her regimen and this will likely cause your blood sugars to increase a bit. *If you do not have a primary care provider please contact the [facility] Resource line at [phone]. They will ask some questions about your medical history and help get you set up with a doctor in the community. *Return to Emergency Department if you should have any new, worsening or concerning symptoms, such as [fever greater than 101 F, shaking chills, worsening pain, persistent vomiting or other bothersome symptoms] Prescriptions: New methylprednisolone [Medrol (Dinh)] 4 mg tablets,dose pack See Rx Instructions .ROUTE .COMPLEX Qty: 21 RF: 0 No Action cyclobenzaprine 5 mg tablet 5 mg PO TID PRN (Reason: muscle spasm) Qty: 10 RF: 0 prednisone 10 mg Tablet 10 mg PO DAILY RF: 0 insulin glargine 100 unit/mL Solution 8 units subcut QAM RF: 0 isosorbide mononitrate 30 mg Tablet Extended Release 24 Hr 15 mg PO DAILY RF: 0 metoprolol succinate 100 mg Tablet Extended Release 24 Hr 50 mg PO DAILY RF: 0 amlodipine 5 mg Tablet 5 mg PO DAILY RF: 0 methocarbamol [Robaxin-750] 750 mg Tablet 1,500 mg PO QID PRN (Reason: Spasms) RF: 0 tamsulosin 0.4 mg Capsule 0.4 mg PO BEDTIME RF: 0 metformin 1,000 mg Tablet 1,000 mg PO BID RF: 0 triamcinolone acetonide 0.1 % Ointment 1 applic TOPICAL BID PRN (Reason: itching or rash) RF: 0 glimepiride 4 mg Tablet 4 mg PO QAM RF: 0 glucose 4 gram Tablet,Chewable 16 g PO PRN PRN (Reason: glucose of 70 mg/dl or less) RF: 0 camphor-menthol 0.5-0.5 % Lotion 1 applic TOPICAL BID PRN (Reason: pain relief) RF: 0 aspirin 81 mg Tablet,Chewable 81 mg PO DAILY RF: 0 fluocinolone 0.01 % Solution 1 applic TOPICAL DAILY PRN (Reason: rash or itching) RF: 0 hydroxychloroquine 200 mg Tablet 400 mg PO DAILY RF: 0 ibuprofen 600 mg Tablet 600 mg PO TID PRN (Reason: pain) RF: 0 colchicine 0.6 mg Tablet 2 tab PO PRN MDD 3 PRN (Reason: Gout) RF: 0 clotrimazole 1 % Cream 1 applic TOPICAL BID RF: 0 fluoride (sodium) 1.1 % Gel 1 applic Dental BEDTIME RF: 0 peg 400-propylene glycol 0.4-0.3 % Drops 1 drp ophthalmic (eye) QID PRN (Reason: Dry Eyes) RF: 0 rosuvastatin 40 mg Tablet 40 mg PO DAILY RF: 0 cholecalciferol (vitamin D3) [Vitamin D3] 1,000 unit Tablet 2,000 unit PO DAILY RF: 0 saxagliptin 5 mg Tablet 5 mg PO DAILY RF: 0 lidocaine 5 % Ointment 1 applic TOPICAL BID PRN (Reason: foot and knee pain) RF: 0 hydrocodone-acetaminophen [Ancram] 5-325 mg tablet 1 tab PO Q6H PRN (Reason: pain) Qty: 10 RF: 0 omeprazole 20 mg capsule,delayed release(DR/EC) 20 mg PO DAILY Qty: 14 RF: 0 amoxicillin-pot clavulanate [Augmentin] 875-125 mg tablet 1 tab PO BID Qty: 20 RF: 0
--- NOTE | 2021-05-16 20:57 | DI.CT.S_ITS ---
PROCEDURE: CT CERVICAL SPINE WO CON INDICATIONS: chronic, but worsening B/L arm tingling TECHNIQUE: Noncontrast 3 mm thick sections acquired from the skull base to the T4 level. Sagittal and coronal reformats were then constructed. For radiation dose reduction, the following was used: automated exposure control, adjustment of mA and/or kV according to patient size. COMPARISON: [facility], CT, CT CERVICAL SPINE WO CON, 07/31/2018, 13:59. FINDINGS: Image quality: Excellent. Bones: No fractures or dislocations. Mild degenerative change of the cervical spine. No significant interval change appreciated. Visualized superior ribs are intact. Soft tissues: Prevertebral soft tissues are normal in thickness. No paravertebral hematomas. No apical pneumothoraces. IMPRESSION: No acute osseous abnormality. Mild degenerative change in the cervical spine. Dictated by: Andrzej Leon M.D. on 05/16/2021 at 21:44 Approved by: Andrzej Leon M.D. on 05/16/2021 at 21:47
[2021-05-16 22:03] VITALS: BP 120/77; PULSE 66; O2SAT 97
== END 2021-05-16 22:09 | disposition home or self-care (01) ==
PROVIDERS: Emergency Provider Emergency Medicine
DX: M54.12 Radiculopathy, cervical region (principal)
CPT/HCPCS: 72125; 93005; 99281; 99284

== ENCOUNTER → 2021-08-19 10:25 | Outpatient (CLI) | payer OTHER, SELFPAY ==
[2021-08-19 12:27] LABS: COVID19 -Nasal RAPID Negative (Negative)
== END ==
PROVIDERS: Visit Provider Surgery
DX: Z01.812 Encounter for preprocedural laboratory examination (principal); Z20.822 Contact with and (suspected) exposure to COVID-19
CPT/HCPCS: 87635; C9803

== ENCOUNTER 2021-08-22 08:59 | Day surgery (SDC) | payer OTHER, SELFPAY ==
[2021-08-22] VITALS (7 sets, daily range): BP systolic 110–130; BP diastolic 77–91; PULSE 74–94; RESP 12–16; TEMP 36.6–37.3; O2SAT 94–97; BMI 31.5
--- NOTE | 2021-08-22 09:27 | PM.PREOP ---
Pre-operative Note Interval Note History & Physical reviewed/Exam performed by Physician: Yes Changes to H&P: No
[2021-08-22] MEDS: LACTATED RINGERS 1,000 ML 200 ML IV (09:39)
[2021-08-22] MEDS: MIDAZOLAM 5 MG/5 ML VIAL IV (09:58)
[2021-08-22] MEDS: fentaNYL 250 MCG/5 ML INJ IV (09:58)
--- NOTE | 2021-08-22 10:17 | PM.OP.COLON ---
Operative Date/Time/Diagnoses Date of procedure: 08/22/21 Time of procedure: 10:18 Pre-op diagnosis: screening Post-op diagnosis: same Procedure & Clinicians Study performed: Colonoscopy Same procedure as scheduled: Yes Indications: Screening Surgeon: Con Carrillo Procedure Notes Procedure in detail: Medications: Conscious sedation using 5mg IV midazolam and 150 mcg IV of fentanyl The history and physical was performed/updated and the patient is ASA class is 2. The procedure was discussed in detail with the patient. Potential risks complications including infection, bleeding, missed diagnosis, perforation, need for surgery, and were explained. Their questions were answered and informed consent was obtained. Patient was brought to the procedure room and placed standard monitoring equipment. The patient's vital signs were monitored continuously throughout the entire procedure. Prior to starting time-out was performed. The patient was placed in the left lateral recumbent position. Procedural sedation was administered. Examination began with a thorough inspection of the perianal area there was no evidence of fissures, fistulae, external hemorrhoids or cutaneous malignancy. The colonoscopy scope was then placed into the anal canal and was advanced to the cecum, which was identified by the ileocecal valve, the appendiceal orifice and the confluence of the taenia. The scope was then slowly withdrawn examining colon thoroughly in all directions, irrigating it of any residual stool. FINDINGS 1. No masses polyps or colitis 2. Diverticulosis The patient tolerated the procedure well. They will be discharged once criteria are met. The prep was of good/excellent quality. The withdrawl time was 6 minutes. The sedation time was 16 minutes. Specimen(s): none sent Complications: none Impression: Normal colonoscopy Post-procedure Recommendations: Colonoscopy in 10 years
== END 2021-08-22 11:03 | disposition home or self-care (01) ==
PROVIDERS: Referring Provider Surgery; Visit Provider Surgery
PROC: 0DJD8ZZ Inspection of Lower Intestinal Tract, Via Natural or Artificial Opening Endoscopic (ICD-10-PCS; CPT 45378; principal; 2021-08-22 10:00)
DX: Z12.11 Encounter for screening for malignant neoplasm of colon (principal); Z86.010 Personal history of colon polyps; I25.10 Atherosclerotic heart disease of native coronary artery without angina pectoris; E11.9 Type 2 diabetes mellitus without complications; E78.5 Hyperlipidemia, unspecified; I10 Essential (primary) hypertension; Z79.4 Long term (current) use of insulin; Z79.84 Long term (current) use of oral hypoglycemic drugs; K57.30 Diverticulosis of large intestine without perforation or abscess without bleeding
CPT/HCPCS: 45378; 82962; 99152; J2250; J3010

== ENCOUNTER 2021-11-12 11:06 | Emergency (ER) | payer OTHER, SELFPAY ==
[2021-11-12 11:12] VITALS: BP 141/90; PULSE 98; RESP 14; TEMP 36.9; O2SAT 100; BMI 31.2
--- NOTE | 2021-11-12 11:21 | DI.RAD.S_ITS ---
PROCEDURE: XR HIP W PEL IF DONE LT 2V INDICATIONS: hip pain and swelling TECHNIQUE: AP pelvis with lateral view(s) of the left hip(s). COMPARISON: [facility], CR, XR LUMBAR SPINE MIN 4V, 11/05/2020, 10:17. FINDINGS: Bones: No fractures or dislocations. Pelvic ring appears intact. No suspicious bony lesions. There is moderate superior joint space narrowing seen of both hips, with associated remodeling changes with subchondral sclerosis and osteophyte formation. Soft tissues: The visualized bowel gas pattern is normal. No suspicious soft tissue calcifications. IMPRESSION: No displaced fracture is identified. If there is point tenderness (or other clinical suspicion for a fracture not seen on these images) then a dedicated CT could be considered for further evaluation, if clinically appropriate. Dictated by: Morgan Pedroza M.D. on 11/12/2021 at 10:36 Approved by: Morgan Pedroza M.D. on 11/12/2021 at 10:37
--- NOTE | 2021-11-12 12:26 | ED.EXTPRO ---
HPI - Extremity Problem General Chief complaint: Extremity Problem,Nontraumatic Stated complaint: pain in left hip going down leg, numbness, pain Time Seen by Provider: 11/12/21 11:12 Source: patient Mode of arrival: Ambulatory Limitations: no limitations History of Present Illness HPI Narrative: The patient complains of left hip pain for 3 days. Pain originates in his left lateral hip. Pain is most dominant in the left anterior thigh. He denies back pain. Has no numbness or weakness in lower extremities. He has no incontinence. He has [employer] /Retired. Has no chronic issues with his back, or hips. He has no obvious recent injuries. He denies incontinence. Related Data Home Medications Medication Instructions Recorded Confirmed aspirin 81 mg chewable tablet 81 mg PO DAILY 10/03/18 08/04/21 camphor-menthol 0.5 %-0.5 % lotion 1 applic TOPICAL BID PRN 10/03/18 08/04/21 cholecalciferol (vitamin D3) 25 2,000 unit PO DAILY 10/03/18 08/04/21 mcg (1,000 unit) tablet (Vitamin D3) clotrimazole 1 % topical cream 1 applic TOPICAL BID 10/03/18 08/04/21 colchicine 0.6 mg tablet 2 tab PO PRN PRN MDD 3 10/03/18 08/04/21 fluocinolone 0.01 % topical 1 applic TOPICAL DAILY PRN 10/03/18 08/04/21 solution fluoride (sodium) 1.1 % dental gel 1 applic DENTAL BEDTIME 10/03/18 08/04/21 glucose 4 gram chewable tablet 16 g PO PRN PRN 10/03/18 08/04/21 hydroxychloroquine 200 mg tablet 400 mg PO DAILY 10/03/18 08/04/21 insulin glargine 100 unit/mL 34 units SUBCUT QAM 10/03/18 08/04/21 subcutaneous solution lidocaine 5 % topical ointment 1 applic TOPICAL BID PRN 10/03/18 08/04/21 metformin 1,000 mg tablet 1,000 mg PO BID 10/03/18 08/04/21 peg 400-propylene glycol 0.4 %-0.3 1 drp OPHTHALMIC (EYE) QID PRN 10/03/18 08/04/21 % eye drops prednisone 10 mg tablet 10 mg PO DAILY 10/03/18 08/04/21 rosuvastatin 40 mg tablet 40 mg PO DAILY 10/03/18 08/04/21 tamsulosin 0.4 mg capsule 0.4 mg PO BEDTIME 10/03/18 08/04/21 triamcinolone acetonide 0.1 % 1 applic TOPICAL BID PRN 10/03/18 08/04/21 topical ointment gabapentin 300 mg 08/22/21 Previous Rx's Medication Instructions Recorded omeprazole 20 mg capsule,delayed 20 mg PO DAILY #14 cap 01/14/20 release methylprednisolone 4 mg tablets in See Rx Instructions .ROUTE 05/16/21 a dose pack (Medrol (Dinh)) .COMPLEX #21 ea prednisone 20 mg tablet 40 mg PO DAILY 5 Days tab 11/12/21 Allergies Allergy/AdvReac Type Severity Reaction Status Date / Time piroxicam [PIROXICAM] Allergy Mild RASH Verified 11/12/21 11:18 Review of Systems Review of Systems ROS Unobtainable: All systems reviewed & are unremarkable except as noted in HPI and below Patient History Medical History (Updated 11/12/21 @ 13:39 by Musa Shultz MD) Coronary artery disease Diabetes mellitus Dyslipidemia Hypertension Sarcoid Surgical History H/O toe surgery Social History household members: spouse Smoking Status: Never smoker alcohol intake: never substance use type: does not use Smoking Status: Never smoker alcohol intake frequency: holidays/special occasions only Substance Use Type: does not use Exam Initial Vital Signs Initial Vital Signs: Vital Signs Temperature 98.4 F 11/12/21 11:12 Pulse Rate 98 H 11/12/21 11:12 Respiratory Rate 14 11/12/21 11:12 Blood Pressure 141/90 H 11/12/21 11:12 Pulse Oximetry 100 11/12/21 11:12 Const General: cooperative, healthy appearing and comfortable Back/Spine/Pelvis Back: No CVA tenderness Other: No lumbar tenderness. No SI tenderness. Skin General: no rashes or lesions noted Neuro General: patient alert, patient awake, patient oriented x3 and no focal motor deficits Sensory Exam: other (Area decreased sensation on the left central anterior thigh.) Other: Negative straight leg raise on the left. Straight leg raise on the right induces left sciatica symptoms. Extrem General: normal to inspection, full ROM, no pedal edema and no calf tenderness Other: No significant left hip tenderness with abduction, adduction, flexion/extension or rotation. Course Course Course Narrative: The patient was given Toradol 30 mg IM, started on prednisone 60 mg. He is feeling significantly better prior to discharge. He will be discharged on OTC analgesics, as well as prednisone. X-rays show bilateral hip osteoarthritis. However his palpation and motion testing hip but not suggest the hip as the source for pain. Straight leg raise does suggest sciatica. I am treating for sciatica, yet referring him to Orthopedics for further evaluation and his hips. He is diabetic, he has been informed that his glucose will be elevated while on the prednisone. Orders Ordered: ED Orders 11/12/21 11:21 XR hip w pel if done LT 2V Stat Ketorolac Tromethamine (Ketorolac 30 Mg/Ml Vial) 30 mg IM NOW ONE Stop: 11/12/21 12:26 Prednisone (Prednisone 20 Mg Tablet) 60 mg PO NOW ONE Stop: 11/12/21 12:26 Vital Signs Vital signs: Vital Signs - 8 hr 11/12/21 11:12 Temperature 98.4 F Pulse Rate 98 H Respiratory Rate 14 Blood Pressure 141/90 H Pulse Oximetry 100 Discharge Plan Departure Patient Disposition: Home Clinical Impression: Left sided sciatica, Osteoarthritis of hips, bilateral Instructions: Osteoarthritis, DI for Sciatica Activity Restrictions/Additional Instructions: Advil 2-3 tablets every 6 hours as needed for pain. Prednisone 40 mg daily for 5 days. Follow-up with orthopedics regarding your hip pain and osteoarthritis. I will give you contact information for Dr. Summer Brewster, call for appointment. Return to the ER as needed. Prescriptions: New prednisone 20 mg tablet 40 mg PO DAILY 5 Days 0RF No Action prednisone 10 mg Tablet 10 mg PO DAILY 0RF insulin glargine 100 unit/mL Solution 34 units subcut QAM 0RF tamsulosin 0.4 mg Capsule 0.4 mg PO BEDTIME 0RF metformin 1,000 mg Tablet 1,000 mg PO BID 0RF triamcinolone acetonide 0.1 % Ointment 1 applic TOPICAL BID PRN (Reason: itching or rash) 0RF glucose 4 gram Tablet,Chewable 16 g PO PRN PRN (Reason: glucose of 70 mg/dl or less) 0RF camphor-menthol 0.5-0.5 % Lotion 1 applic TOPICAL BID PRN (Reason: pain relief) 0RF aspirin 81 mg Tablet,Chewable 81 mg PO DAILY 0RF fluocinolone 0.01 % Solution 1 applic TOPICAL DAILY PRN (Reason: rash or itching) 0RF hydroxychloroquine 200 mg Tablet 400 mg PO DAILY 0RF colchicine 0.6 mg Tablet 2 tab PO PRN MDD 3 PRN (Reason: Gout) 0RF Rx Instructions: 2 tablets for gout flare and one tablet in one hour. total 3 tabs for flare episodes clotrimazole 1 % Cream 1 applic TOPICAL BID 0RF fluoride (sodium) 1.1 % Gel 1 applic Dental BEDTIME 0RF Rx Instructions: brush gel on teeth. keep on for 2 minutes then spit out. do not rinsh, eat or drink for 30 minutes afater use. peg 400-propylene glycol 0.4-0.3 % Drops 1 drp ophthalmic (eye) QID PRN (Reason: Dry Eyes) 0RF rosuvastatin 40 mg Tablet 40 mg PO DAILY 0RF cholecalciferol (vitamin D3) [Vitamin D3] 1,000 unit Tablet 2,000 unit PO DAILY 0RF lidocaine 5 % Ointment 1 applic TOPICAL BID PRN (Reason: foot and knee pain) 0RF omeprazole 20 mg capsule,delayed release(DR/EC) 20 mg PO DAILY Qty: 14 0RF methylprednisolone [Medrol (Dinh)] 4 mg tablets,dose pack See Rx Instructions .ROUTE .COMPLEX Qty: 21 0RF Rx Instructions: orally per package directions gabapentin 300 mg 0RF Referrals: Mely Lynn MD [Primary Care Provider] - Summer Brewster MD [Physician] -
[2021-11-12] MEDS: predniSONE 20 MG TABLET 60 MG PO (12:32)
[2021-11-12] MEDS: KETOROLAC 30 MG/ML VIAL IM (12:32)
[2021-11-12 13:50] VITALS: BP 120/89; PULSE 84; O2SAT 99
== END 2021-11-12 14:00 | disposition home or self-care (01) ==
PROVIDERS: Emergency Provider Emergency Medicine; PCP Internal Medicine
DX: M54.32 Sciatica, left side (principal); M16.0 Bilateral primary osteoarthritis of hip
CPT/HCPCS: 73502; 96372; 99283; 99284; J1885

== ENCOUNTER 2023-05-04 17:09 | Emergency (ER) | payer OTHER, SELFPAY ==
[2023-05-04 17:19] VITALS: BP 141/81; PULSE 94; RESP 17; TEMP 36.2; O2SAT 99; BMI 30.8
[2023-05-04 20:19] VITALS: BP 145/83; PULSE 76; RESP 16; O2SAT 100
--- NOTE | 2023-05-04 20:34 | ED_ITS ---
HPI - Wound/Laceration General Chief Complaint: Wound/Laceration Stated Complaint: L thumb lac Time Seen by Provider: 05/04/23 20:24 Source: patient Mode of arrival: Ambulatory History of Present Illness HPI narrative: This is a 68-year-old male with history of autoimmune disease, diabetes, dyslipidemia, hypertension and sarcoidosis who presents with laceration to his left thumb. Patient states he had been told to present because he takes Remicade daily if he has any injuries. He is unsure of his last tetanus. He states he was injured by an aluminum box. He denies any other injuries. No numbness or tingling or weakness. He is right-hand dominant. Related Data Home Medications Medication Instructions Recorded Confirmed aspirin 81 mg chewable tablet 81 mg PO DAILY 10/03/18 08/04/21 camphor-menthol 0.5 %-0.5 % lotion 1 applic topical BID PRN pain 10/03/18 08/04/21 relief cholecalciferol (vitamin D3) 25 2,000 unit PO DAILY 10/03/18 08/04/21 mcg (1,000 unit) tablet (Vitamin D3) clotrimazole 1 % topical cream 1 applic topical BID 10/03/18 08/04/21 colchicine 0.6 mg tablet 2 tab PO PRN PRN Gout 10/03/18 08/04/21 fluocinolone 0.01 % topical 1 applic topical DAILY PRN rash or 10/03/18 08/04/21 solution itching fluoride (sodium) 1.1 % dental gel 1 applic dental BEDTIME 10/03/18 08/04/21 glucose 4 gram chewable tablet 16 g PO PRN PRN glucose of 70 10/03/18 08/04/21 mg/dl or less hydroxychloroquine 200 mg tablet 400 mg PO DAILY 10/03/18 08/04/21 insulin glargine 100 unit/mL 34 units SUBCUT QAM 10/03/18 08/04/21 subcutaneous solution lidocaine 5 % topical ointment 1 applic topical BID PRN foot and 10/03/18 08/04/21 knee pain metformin 1,000 mg tablet 1,000 mg PO BID 10/03/18 08/04/21 peg 400-propylene glycol 0.4 %-0.3 1 drp ophthalmic (eye) QID PRN Dry 10/03/18 08/04/21 % eye drops Eyes prednisone 10 mg tablet 10 mg PO DAILY 10/03/18 08/04/21 rosuvastatin 40 mg tablet 40 mg PO DAILY 10/03/18 08/04/21 tamsulosin 0.4 mg capsule 0.4 mg PO BEDTIME 10/03/18 08/04/21 triamcinolone acetonide 0.1 % 1 applic topical BID PRN itching 10/03/18 08/04/21 topical ointment or rash gabapentin 300 mg 08/22/21 Previous Rx's Medication Instructions Recorded omeprazole 20 mg capsule,delayed 20 mg PO DAILY acid-reflux #14 caps 01/14/20 release methylprednisolone 4 mg tablets in See Rx Instructions PO .COMPLEX 05/16/21 a dose pack (Medrol (Dinh)) #21 ea Allergies Allergy/AdvReac Type Severity Reaction Status Date / Time piroxicam [PIROXICAM] Allergy Mild RASH Verified 05/04/23 17:19 Review of Systems Review of Systems ROS Unobtainable: All systems reviewed & are unremarkable except as noted in HPI and below Patient History Medical History Coronary artery disease Diabetes mellitus Dyslipidemia Hypertension Sarcoid Surgical History H/O toe surgery Social History household members: spouse Smoking Status: Never smoker alcohol intake: never substance use type: does not use Smoking Status: Never smoker alcohol intake frequency: holidays/special occasions only Substance Use Type: does not use Exam Narrative Exam Narrative: GENERAL: Alert and oriented x three, Well-nourished male in no acute distress. HEENT: Head normocephalic, atraumatic, EOMI, pupils reactive, face symmetric, moist mucous membranes NECK: Supple, full range of motion CARDIOVASCULAR: Regular rate and rhythm without murmurs, rubs or gallops. RESPIRATORY: Breath sounds equal bilaterally, no wheezes rales or rhonchi. ABDOMEN: Soft, nontender. Normoactive bowel sounds all 4 quadrants. No guarding or rebound, rigidity, no mass : No CVA tenderness EXTREMITIES: Normal range of motion, no clubbing or edema. Neurovascularly intact. Patient has avulsion laceration to the lateral edge of the 1st finger on the left hand. does not have any injury to the nail laceration. Just adjacent is into the subcutaneous no muscle or bone is exposed. It is approximately 1 cm total length. NEUROLOGICAL: Cranial nerves II through XII grossly intact. Moving all extremities SKIN: Warm, dry, no petechiae, no rashes or lesions. Initial Vital Signs Initial Vital Signs: Vital Signs Temperature 97.2 F L 05/04/23 17:19 Pulse Rate 94 H 05/04/23 17:19 Respiratory Rate 17 05/04/23 17:19 Blood Pressure 141/81 H 05/04/23 17:19 Pulse Oximetry 99 05/04/23 17:19 Oxygen Delivery Method Room Air 05/04/23 17:19 Procedures Laceration Repair Laceration 1: Site: hand Side (If applicable): left (thumb) Size (cm): 1.2 Description: flap, irregular and clean Depth: simple, single layer Local Anesthetic: lidocaine 1% Amount of anesthesia used (mL): 2 Pre-repair: wound explored, irrigated extensively and deep structures intact Skin layer closed with: nylon Skin layer suture size: 5-0 Number of sutures: 4 Technique: simple, interrupted Course Orders Ordered: Discontinued Medications Diphtheria/Tetanus/Acell Pertussis (Tet,Diph,Pertuss(Acell),Vac/Pf 0.5 Ml Syringe) 0.5 ml IM .ONCE ONE Stop: 05/04/23 21:17 Last Admin: 05/04/23 21:22 Dose: 0.5 ml Documented By: Tetanus/Diphtheria Toxoids (Tetanus Diphtheria Toxoids 0.5 Ml Vial) 0.5 ml IM .ONCE ONE Stop: 05/04/23 20:27 Last Admin: 05/04/23 21:17 Dose: Not Given Documented By: Vital Signs Vital signs: Vital Signs - 8 hr 05/04/23 22:31 Temperature 98 F Pulse Rate 75 Respiratory Rate 16 Blood Pressure 117/79 Pulse Oximetry 98 Oxygen Delivery Method Room Air MDM - Wound/Laceration MDM Narrative Medical decision making narrative: this is a 68-year-old male who presents with complaint of left thumb laceration, patient's tetanus was updated as he was unsure of last dose. Does not require antibiotics at this time but asked to keep close eye as he is on Remicade daily. Laceration was repaired patient tolerated procedure well. Discharge Plan Departure Patient Disposition: Home Clinical Impression: Laceration of left thumb Instructions: DI for Laceration Repair Activity Restrictions/Additional Instructions: Follow-up in 7-10 days for removal of your sutures with either primary care, urgent care in the emergency department. Wound Care: Keep wound(s) clean and dry. Wash daily with soap and water only. Do not use over the counter products (alcohol or peroxide)on the wounds unless instructed by a physician, you can use triple antibiotic ointment such as Neosporin twice daily. If wound condition worsens (increased/expanding redness, developing fluid blisters, or worsening pain), either contact your doctor for an urgent re- assessment , or return to the Emergency Department. Return to the Emergency Department for any new or worsening symptoms. Return if fever greater than 100.4 Fahrenheit, increased swelling, increasing pain or worsening symptoms such as increased discharge or spreading redness. Prescriptions: No Action prednisone 10 mg Tablet 10 mg PO DAILY insulin glargine 100 unit/mL Solution 34 units subcut QAM tamsulosin 0.4 mg Capsule 0.4 mg PO BEDTIME metformin 1,000 mg Tablet 1,000 mg PO BID triamcinolone acetonide 0.1 % Ointment 1 applic TOPICAL BID PRN (Reason: itching or rash) glucose 4 gram Tablet,Chewable 16 g PO PRN PRN (Reason: glucose of 70 mg/dl or less) camphor-menthol 0.5-0.5 % Lotion 1 applic TOPICAL BID PRN (Reason: pain relief) aspirin 81 mg Tablet,Chewable 81 mg PO DAILY fluocinolone 0.01 % Solution 1 applic TOPICAL DAILY PRN (Reason: rash or itching) hydroxychloroquine 200 mg Tablet 400 mg PO DAILY colchicine 0.6 mg Tablet 2 tab PO PRN MDD 3 PRN (Reason: Gout) Rx Instructions: 2 tablets for gout flare and one tablet in one hour. total 3 tabs for flare episodes clotrimazole 1 % Cream 1 applic TOPICAL BID fluoride (sodium) 1.1 % Gel 1 applic Dental BEDTIME Rx Instructions: brush gel on teeth. keep on for 2 minutes then spit out. do not rinsh, eat or drink for 30 minutes afater use. peg 400-propylene glycol 0.4-0.3 % Drops 1 drp ophthalmic (eye) QID PRN (Reason: Dry Eyes) rosuvastatin 40 mg Tablet 40 mg PO DAILY cholecalciferol (vitamin D3) [Vitamin D3] 1,000 unit Tablet 2,000 unit PO DAILY lidocaine 5 % Ointment 1 applic TOPICAL BID PRN (Reason: foot and knee pain) omeprazole 20 mg capsule,delayed release(DR/EC) 20 mg PO DAILY Qty: 14 0RF methylprednisolone [Medrol (Dinh)] 4 mg tablets,dose pack See Rx Instructions .ROUTE .COMPLEX Qty: 21 0RF Rx Instructions: orally per package directions gabapentin 300 mg Referrals: Mely Lynn MD [Primary Care Provider] - Stand Alone Forms: Patient Portal/API
[2023-05-04] MEDS: TET,DIPH,PERTUSS(ACELL),VAC/PF 0.5 ML SYRINGE IM (21:22)
[2023-05-04 22:31] VITALS: BP 117/79; PULSE 75; RESP 16; TEMP 36.6; O2SAT 98
== END 2023-05-04 22:32 | disposition home or self-care (01) ==
PROVIDERS: Emergency Provider Emergency Medicine; PCP Internal Medicine
DX: S61.012A Laceration without foreign body of left thumb without damage to nail, initial encounter (principal); W26.9XXA Contact with unspecified sharp object(s), initial encounter; Z23 Encounter for immunization
CPT/HCPCS: 12001; 90471; 99283; 90715

== ENCOUNTER 2023-06-25 20:47 | Emergency (ER) | payer OTHER, SELFPAY ==
[2023-06-25] VITALS (17 sets, daily range): BP systolic 107–145; BP diastolic 65–89; PULSE 68–83; RESP 13–20; TEMP 36.9; O2SAT 97–100; BMI 30.7
--- NOTE | 2023-06-25 21:02 | DI.RAD.S_ITS ---
PROCEDURE: XR CHEST 1V INDICATIONS: chest pain TECHNIQUE: One view of the chest was acquired. COMPARISON: [facility], CR, XR CHEST 2V, 11/05/2020, 10:17. FINDINGS: Surgical changes and devices: None. Lungs and pleura: Lungs are clear. No pleural effusions or pneumothorax. Mediastinum: Mediastinal contours appear normal. Heart size is normal. Bones and chest wall: No suspicious bony lesions. Overlying soft tissues appear unremarkable. IMPRESSION: 1. No acute cardiopulmonary disease. Dictated by: Remigio Hargrove M.D. on 06/25/2023 at 22:01 Approved by: Remigio Hargrove M.D. on 06/25/2023 at 22:10
[2023-06-25 21:15] LABS: Prothrombin Time 10.9 SECONDS (10.1-12.7)
[2023-06-25 21:18] LABS: PTT Partial Thromboplastin Tim 29 SECONDS (26-36)
--- NOTE | 2023-06-25 21:20 | DI.CT.S_ITS ---
PROCEDURE: CT ANGIO CHEST PE PROTOCOL INDICATIONS: sob, cp, h/o PE TECHNIQUE: After the administration of intravenous contrast, 2 mm thick sections acquired from the pulmonary apices to the posterior costophrenic angles. 3-dimensional maximum intensity projection (MIP) coronal and sagittal reformats were then acquired through the thorax. For radiation dose reduction, the following was used: automated exposure control, adjustment of mA and/or kV according to patient size. COMPARISON: [facility], CT, PE STUDY (CTA CHEST), 02/04/2016, 15:21. [facility], CT, CT SOFT TISSUE NECK W CON, 09/28/2020, 12:23. FINDINGS: Image quality: Excellent. Pulmonary arteries: Pulmonary arteries demonstrate no intraluminal filling defects to suggest central pulmonary embolism. Lower Neck: No lymphadenopathy by size criteria. Thyroid: There is an ill-defined partially visualized hypoattenuating mass posterior to the right thyroid lobe measuring up to 3.4 x 1.8 cm on series 4, image 9. This appears similar to the prior neck CT. Axillae: No lymphadenopathy by size criteria. Chest Wall: Unremarkable. Bones: Visualized osseous structures demonstrate no suspicious lesions. Lungs and Airways: There are few bilateral small scattered pulmonary nodules redemonstrated. Right perihilar linear opacities appear similar to the prior chest CT. No acute consolidation. The trachea and central airways are patent. Pleura: No pneumothorax or pleural effusions. Heart: Heart size is normal. No pericardial effusion. Thoracic Vessels: The thoracic aorta is normal in size. Mediastinum and Adore: There is confluent right hilar soft tissue with vascular and bronchial encasement. No associated high-grade extrinsic narrowing. The There are scattered calcified mediastinal and hilar lymph nodes consistent with sequelae of old granulomatous disease. Esophagus: No wall thickening. No hiatal hernia. Abdomen: Visualized upper abdominal solid organs appear normal in the early arterial phase of enhancement. IMPRESSION: 1. No evidence of pulmonary embolism. 2. Scattered bilateral small pulmonary nodules and right perihilar linear scarring appear similar to the prior study. The findings likely represent sequelae of patient's history of sarcoid. 3. Confluent right perihilar soft tissue with bronchial and vascular encasement also appears similar to the prior study and is consistent with sequelae of sarcoidosis. 4. Partially visualized soft tissue mass posterior to the right thyroid lobe appears similar to the prior studies. Consider further evaluation with a dedicated thyroid ultrasound if clinically indicated. Dictated by: Remigio Hargrove M.D. on 06/25/2023 at 23:02 Approved by: Remigio Hargrove M.D. on 06/25/2023 at 23:15
[2023-06-25 21:21] LABS: Add Manual Diff / Slide Review NO; Basophils Absolute Auto 0 /uL (0-100); Basophils Percent Auto 0.8 % (0-2); Eosinophils Absolute Auto 0 /uL (0-450); Eosinophils Percent Auto 0.2 % (2-4); Hematocrit 40.2 % (41-53); Lymphocytes Absolute Auto 1700 /uL (1100-4500); Lymphocytes Percent Auto 39.7 % (25-40); Mean Corpuscular HGB Conc 32.3 % (30-36); Mean Corpuscular Hemoglobin 27.3 PG (26-34); Mean Corpuscular Volume 84.3 fL (80-100); Monocytes Absolute Auto 500 /uL (0-900); Neutrophils Absolute Auto 2000 /uL (1500-7000); Neutrophils Percent Auto 47.3 % (50-75); Platelet Count 245 X10^3/uL (150-400); Red Blood Cell Count 4.77 X10^6/uL (4.5-5.9); Red Cell Distribution Width 15.7 % (11.6-14.8); White Blood Cell Count 4.2 X10^3/uL (4.5-11.0)
[2023-06-25 21:30] LABS: Alanine Aminotransferase 55 IU/L (<50); Albumin 4.2 g/dL (3.5-5.0); Albumin Globulin Ratio 1.2 (1.0-2.8); Alkaline Phosphatase 41 U/L (38-126); Aspartate Aminotransferase 49 IU/L (17-59); BUN Creatinine Ratio 13.4 (6-22); Bilirubin Total 0.3 mg/dL (0.2-1.3); Blood Urea Nitrogen 15 mg/dL (9-20); Calcium 9.4 mg/dL (8.4-10.2); Carbon Dioxide 26 mmol/L (22-32); Chloride 106 mmol/L (98-107); Creatine Kinase 878 U/L (55-170); Estimated Glomerular Filt Rate > 60 mL/min (>60); Globulin 3.5 g/dL (1.7-4.1); Glucose 118 mg/dL (80-110); HEMOLYSIS 19 (0-50); Lipase 177 U/L (23-300); Magnesium 2.2 mg/dL (1.6-2.3); Potassium 4.1 mmol/L (3.4-5.1); Sodium 141 mmol/L (137-145); Total Protein 7.7 g/dL (6.3-8.2)
[2023-06-25 21:42] LABS: Troponin I < 0.012 ng/mL (0.01-0.034)
[2023-06-25] MEDS: NITROGLYCERIN 0.4 MG SL TAB SL (23:16)
--- NOTE | 2023-06-25 23:28 | ED_ITS ---
HPI - Chest Pain General Chief Complaint: Chest Pain Stated Complaint: Heart fluttering Time Seen by Provider: 06/25/23 23:28 Source: patient Mode of arrival: Ambulatory Limitations: no limitations History of Present Illness HPI narrative: 68-year-old gentleman with a history of sarcoidosis on methotrexate and pred nisone 5 mg daily, June 13 was diagnosed with COVID was feeling better by June 22 but today began noticing some left-sided chest pain and comes in for further evaluation. His COVID symptoms consisted of mild headache fatigue and runny nose. No chest pain or dyspnea. Today he would an episode where he felt like his heart was racing and his breathing was abnormal and describes 5/10 left-sided chest pain that lasted approximately 20 seconds. He comes in for further evaluation. Additional history is that of a spontaneous pulmonary embolism in the past. He is not currently anticoagulated. He has had episodes of chest pain previously and 3 years ago underwent cardiac catheterization at the [place] and was told that he did not have significant atherosclerotic disease, no stents were placed. Related Data Home Medications Medication Instructions Recorded Confirmed aspirin 81 mg chewable tablet 81 mg PO DAILY 10/03/18 06/25/23 cholecalciferol (vitamin D3) 25 2,000 unit PO DAILY 10/03/18 06/25/23 mcg (1,000 unit) tablet (Vitamin D3) colchicine (gout) 0.6 mg tablet 2 tab PO PRN PRN Gout 10/03/18 08/04/21 fluocinolone 0.01 % topical 1 applic topical DAILY PRN rash or 10/03/18 08/04/21 solution itching fluoride (sodium) 1.1 % dental gel 1 applic dental BEDTIME 10/03/18 06/25/23 glucose 4 gram chewable tablet 16 g PO PRN PRN glucose of 70 10/03/18 06/25/23 mg/dl or less hydroxychloroquine 200 mg tablet 200 mg PO DAILY 10/03/18 06/25/23 insulin glargine 100 unit/mL 34 units SUBCUT QAM 10/03/18 08/04/21 subcutaneous solution lidocaine 5 % topical ointment 1 applic topical BID PRN foot and 10/03/18 06/25/23 knee pain metformin 1,000 mg tablet 1,000 mg PO BID 10/03/18 06/25/23 peg 400-propylene glycol 0.4 %-0.3 1 drp ophthalmic (eye) QID PRN Dry 10/03/18 06/25/23 % eye drops Eyes rosuvastatin 40 mg tablet 40 mg PO DAILY 10/03/18 06/25/23 tamsulosin 0.4 mg capsule 0.4 mg PO BEDTIME 10/03/18 06/25/23 gabapentin 300 mg 08/22/21 Novolin N NPH U-100 Insulin 20 unit 06/25/23 Ozempic WEEKLY 06/25/23 diclofenac sodium 4 g 3XD 06/25/23 06/25/23 methotrexate 10 mg 06/25/23 prednisone 5 tab DAILY 06/25/23 06/25/23 pregabalin 150 mg BID 06/25/23 06/25/23 Previous Rx's Medication Instructions Recorded omeprazole 20 mg capsule,delayed 20 mg PO DAILY acid-reflux #14 caps 01/14/20 release Allergies Allergy/AdvReac Type Severity Reaction Status Date / Time piroxicam [PIROXICAM] Allergy Mild RASH Verified 06/25/23 21:11 Review of Systems Review of Systems Narrative: Pertinent positive and negative findings as per HPI Patient History Medical History (Updated 06/26/23 @ 01:18 by Lianna Briscoe MD) Coronary artery disease Diabetes mellitus Dyslipidemia Hypertension Sarcoid Surgical History H/O toe surgery Social History household members: spouse Smoking Status: Never smoker alcohol intake: never substance use type: does not use Smoking Status: Never smoker alcohol intake frequency: holidays/special occasions only Substance Use Type: does not use Exam Initial Vital Signs Initial Vital Signs: Vital Signs Temperature 98.5 F 06/25/23 20:53 Pulse Rate 83 06/25/23 20:53 Respiratory Rate 20 06/25/23 20:53 Blood Pressure 130/84 06/25/23 20:53 Pulse Oximetry 99 06/25/23 20:53 Oxygen Delivery Method Room Air 06/25/23 20:53 General: Healthy appearing, in no acute distress. Able to give a complete and coherent history. Well-nourished well-developed HEENT: Moist mucous membranes, normal sclera with reactive pupils, Neck: No JVD, supple Respiratory: Lungs are clear to auscultation, no wheezing no rales no rhonchi. Full and symmetrical air movement Cardiac: Regular rate and rhythm no murmurs no bruits. He has point tenderness along the costochondral margins of ribs 10 11 and 12 on the left side that reproduces the pain that he initially noted. Abdomen: Soft, nontender, good bowel tones, no flank pain Skin: Warm and dry, no rashes Neurologic: Grossly neurologically intact with no obvious asymmetries or abnormalities Extremities: No trauma, well perfused Psych: Cooperative, appropriate insight and affect Course Orders Ordered: ED Orders 06/25/23 20:55 Complete Blood Count AUTO DIFF Stat Comprehensive Metabolic Panel Stat Lipase Stat Magnesium Stat PTT Partial Thromboplastin Virg[place] Stat Prothrombin Time INR Stat Troponin & CK Cardiac Panel Stat 06/25/23 21:02 XR chest 1V Stat EKG-12 Lead Stat 06/25/23 21:20 CT angio chest PE protocol Stat 06/26/23 00:13 Trop I [Troponin I] Stat Discontinued Medications Lidocaine (Lidocaine Patch 1 Each Adh..Patch) 1 each TOP NOW ONE Stop: 06/25/23 23:44 Last Admin: 06/26/23 00:11 Dose: 1 each Documented By: MICHI Nitroglycerin (Nitroglycerin 0.4 Mg Sl Tab) 0.4 mg SL NOW ONE Stop: 06/25/23 23:13 Last Admin: 06/25/23 23:16 Dose: 0.4 mg Documented By: MICHI Vital Signs Vital signs: Vital Signs - 8 hr 06/25/23 20:53 06/25/23 21:28 06/25/23 21:30 Temperature 98.5 F Pulse Rate 83 78 Respiratory Rate 20 14 Blood Pressure 130/84 145/89 H Pulse Oximetry 99 100 Oxygen Delivery Method Room Air 06/25/23 21:30 06/25/23 22:00 06/25/23 22:25 Temperature Pulse Rate 77 78 Respiratory Rate 16 18 Blood Pressure 121/77 Pulse Oximetry 99 99 Oxygen Delivery Method 06/25/23 22:25 06/25/23 22:30 06/25/23 22:30 Temperature Pulse Rate 72 72 Respiratory Rate 16 13 Blood Pressure 120/78 Pulse Oximetry 99 99 Oxygen Delivery Method 06/25/23 23:00 06/25/23 23:00 06/25/23 23:16 Temperature Pulse Rate 68 68 Respiratory Rate 17 Blood Pressure 116/78 120/82 Pulse Oximetry 99 Oxygen Delivery Method 06/25/23 23:18 06/25/23 23:18 06/25/23 23:20 Temperature Pulse Rate 70 Respiratory Rate 20 Blood Pressure 120/82 115/77 Pulse Oximetry 99 Oxygen Delivery Method 06/25/23 23:20 06/25/23 23:25 06/25/23 23:25 Temperature Pulse Rate 69 79 Respiratory Rate 15 17 Blood Pressure 107/65 Pulse Oximetry 98 97 Oxygen Delivery Method 06/25/23 23:30 06/25/23 23:30 06/25/23 23:35 Temperature Pulse Rate 79 Respiratory Rate 16 Blood Pressure 110/70 123/79 Pulse Oximetry 97 Oxygen Delivery Method 06/25/23 23:35 06/25/23 23:40 06/25/23 23:40 Temperature Pulse Rate 74 70 Respiratory Rate 16 15 Blood Pressure 124/83 Pulse Oximetry 98 98 Oxygen Delivery Method 06/25/23 23:45 06/25/23 23:45 06/25/23 23:50 Temperature Pulse Rate 70 70 Respiratory Rate 16 15 Blood Pressure 113/74 Pulse Oximetry 98 98 Oxygen Delivery Method 06/25/23 23:50 06/25/23 23:55 06/25/23 23:55 Temperature Pulse Rate 72 Respiratory Rate 17 Blood Pressure 114/76 112/75 Pulse Oximetry 98 Oxygen Delivery Method 06/26/23 00:00 06/26/23 00:00 06/26/23 00:05 Temperature Pulse Rate 71 Respiratory Rate 14 Blood Pressure 109/74 113/78 Pulse Oximetry 97 Oxygen Delivery Method 06/26/23 00:05 06/26/23 00:10 06/26/23 00:10 Temperature Pulse Rate 72 71 Respiratory Rate 16 17 Blood Pressure 109/72 Pulse Oximetry 97 98 Oxygen Delivery Method 06/26/23 00:18 06/26/23 00:18 06/26/23 00:20 Temperature Pulse Rate 74 70 Respiratory Rate 16 13 Blood Pressure 117/79 Pulse Oximetry 99 97 Oxygen Delivery Method 06/26/23 00:20 06/26/23 00:25 06/26/23 00:25 Temperature Pulse Rate 68 Respiratory Rate 13 Blood Pressure 116/73 109/67 Pulse Oximetry 98 Oxygen Delivery Method 06/26/23 00:30 06/26/23 00:30 06/26/23 00:35 Temperature Pulse Rate 68 Respiratory Rate 13 Blood Pressure 109/72 116/75 Pulse Oximetry 98 Oxygen Delivery Method 06/26/23 00:35 06/26/23 00:40 06/26/23 00:40 Temperature Pulse Rate 69 73 Respiratory Rate 13 16 Blood Pressure 110/71 Pulse Oximetry 98 98 Oxygen Delivery Method 06/26/23 00:45 06/26/23 00:45 Temperature Pulse Rate 75 Respiratory Rate 15 Blood Pressure 107/71 Pulse Oximetry 96 Oxygen Delivery Method MDM - Chest Pain Lab Data 06/25/23 20:55 06/25/23 20:55 Labs: Lab Results 06/25/23 06/25/23 06/25/23 Range/Units 20:55 20:55 20:55 WBC 4.2 L (4.5-11.0) X10^3/uL RBC 4.77 (4.5-5.9) X10^6/uL Hgb 13.0 L (13.5-17.5) g/dL Hct 40.2 L (41-53) % MCV 84.3 (80-100) fL MCH 27.3 (26-34) PG MCHC 32.3 (30-36) % RDW 15.7 H (11.6-14.8) % Plt Count 245 (150-400) X10^3/uL Neut % (Auto) 47.3 L (50-75) % Lymph % (Auto) 39.7 (25-40) % [place] % (Auto) 12.0 (3-14) % Eos % (Auto) 0.2 L (2-4) % Baso % (Auto) 0.8 (0-2) % Neut # (Auto) 2000 (5048-9259) /uL Lymph # (Auto) 1700 (4919-8136) /uL [place] # (Auto) 500 (0-900) /uL Eos # (Auto) 0 (0-450) /uL Baso # (Auto) 0 (0-100) /uL PT 10.9 (10.1-12.7) SECONDS INR 1.0 (0.9-1.3) APTT 29 (26-36) SECONDS Sodium 141 (137-145) mmol/L Potassium 4.1 (3.4-5.1) mmol/L Chloride 106 (98-107) mmol/L Carbon Dioxide 26 (22-32) mmol/L BUN 15 (9-20) mg/dL Creatinine 1.12 (0.66-1.25) mg/dL Estimated GFR > 60 (>60) mL/min BUN/Creatinine Ratio 13.4 (6-22) Glucose 118 H (80-110) mg/dL Calcium 9.4 (8.4-10.2) mg/dL Magnesium 2.2 (1.6-2.3) mg/dL Total Bilirubin 0.3 (0.2-1.3) mg/dL AST 49 (17-59) IU/L ALT 55 H (<50) IU/L Alkaline Phosphatase 41 (38-126) U/L Total Creatine Kinase 878 H (55-170) U/L Troponin I < 0.012 (0.01-0.034) ng/mL Total Protein 7.7 (6.3-8.2) g/dL Albumin 4.2 (3.5-5.0) g/dL Globulin 3.5 (1.7-4.1) g/dL Albumin/Globulin Ratio 1.2 (1.0-2.8) Lipase 177 (23-300) U/L 06/26/23 Range/Units 00:13 WBC (4.5-11.0) X10^3/uL RBC (4.5-5.9) X10^6/uL Hgb (13.5-17.5) g/dL Hct (41-53) % MCV (80-100) fL MCH (26-34) PG MCHC (30-36) % RDW (11.6-14.8) % Plt Count (150-400) X10^3/uL Neut % (Auto) (50-75) % Lymph % (Auto) (25-40) % [place] % (Auto) (3-14) % Eos % (Auto) (2-4) % Baso % (Auto) (0-2) % Neut # (Auto) (5472-5170) /uL Lymph # (Auto) (6600-8685) /uL [place] # (Auto) (0-900) /uL Eos # (Auto) (0-450) /uL Baso # (Auto) (0-100) /uL PT (10.1-12.7) SECONDS INR (0.9-1.3) APTT (26-36) SECONDS Sodium (137-145) mmol/L Potassium (3.4-5.1) mmol/L Chloride (98-107) mmol/L Carbon Dioxide (22-32) mmol/L BUN (9-20) mg/dL Creatinine (0.66-1.25) mg/dL Estimated GFR (>60) mL/min BUN/Creatinine Ratio (6-22) Glucose (80-110) mg/dL Calcium (8.4-10.2) mg/dL Magnesium (1.6-2.3) mg/dL Total Bilirubin (0.2-1.3) mg/dL AST (17-59) IU/L ALT (<50) IU/L Alkaline Phosphatase (38-126) U/L Total Creatine Kinase (55-170) U/L Troponin I 0.022 (0.01-0.034) ng/mL Total Protein (6.3-8.2) g/dL Albumin (3.5-5.0) g/dL Globulin (1.7-4.1) g/dL Albumin/Globulin Ratio (1.0-2.8) Lipase (23-300) U/L MDM Narrative Medical decision making narrative: CC: Left-sided chest pain Complicating co-morbidities: Sarcoidosis, recent COVID infection Data collected from: patient, Medical records reviewed: Patient states that he had angiogram 2-3 years ago at the [place] with similar episode of chest pain and was told that he did not have any atherosclerotic coronary disease Differential considered: Acute coronary syndrome, sarcoid exacerbation, pneumonia, pneumothorax, musculoskeletal pain Exam documented above, pertinent findings include: No acute distress, com pletely reproducible pain with palpation along the left lower anterior ribs Lab Test results independently reviewed as above. Pertinent findings: CBC is unremarkable Chemistries are reassuring no evidence of acute renal failure. First and 2nd troponin are both within normal limits Independently reviewed EKG sinus rhythm at a rate of 71, normal intervals normal axis, no acute ischemic changes Imaging studies independently reviewed: Because he presented with palpitations chest pain and has a history of pulmonary embolism a CT scan to rule out pulmonary embolism was ordered. There is no evidence of embolism, specific pulmonary disease and his sarcoidosis findings seem stable. Discussion: 68-year-old gentleman presents with left-sided chest pain. Cardiac workup is reassuring. Given his recent COVID infection I suspect that he is caused either costochondritis or some mild pleuritic pain to explain the episodes that he is experiencing. Spelled so be a slight exacerbation of his sarcoid. At this point, particularly in light of the essentially normal heart catheterization a couple of years ago, I do not think there is any evidence of coronary disease. He is not interested in medication of any kind at this time. Considered increasing his prednisone however he worked very hard to get his prednisone down to 5 mg after years of higher doses due to his sarcoid. He is willing to try Tylenol if the pain is severe enough that this point it is not bothering him enough that he is willing to even take Tylenol. Reviewed signs and symptoms of coronary pain and encouraged him to return should he have any changing or worsening symptoms he is safe for discharge. Discharge Plan Departure Patient Disposition: Home Clinical Impression: Acute costochondritis Instructions: DI for Costochondritis Activity Restrictions/Additional Instructions: Thank you for coming in [facility]. Your workup is actually quite reassuring. There is no evidence of heart attack or acute coronary syndrome. Your EKG was reassuring. Blood tests looking for heart attack were also normal On your exam, with the tenderness along the lower ribs on the left side, I suspect that your pain is related to the rib pain. Whether this is costochondritis or pleurisy or mild exacerbation of your sarcoidosis is difficult to tell. At this time urine all of the appropriate medications including the methotrexate and the prednisone. I am not going to suggest that we make any additional changes. If you have worsening pain lasting more than 22nd severe enough to use any medications, I would recommend Tylenol. If you have recurrent episodes of pain that are associated with sweatiness, shortness of breath feeling like your going to pass out or other concerning symptoms it is absolutely appropriate to return to the emergency department Prescriptions: No Action methotrexate 10 mg Rx Instructions: Take 4 tablets of 2.5mg once a week Novolin N NPH U-100 Insulin 20 unit prednisone 5 tab DAILY Ozempic WEEKLY pregabalin 150 mg BID diclofenac sodium 4 g 3XD insulin glargine 100 unit/mL Solution 34 units subcut QAM tamsulosin 0.4 mg Capsule 0.4 mg PO BEDTIME metformin 1,000 mg Tablet 1,000 mg PO BID glucose 4 gram Tablet,Chewable 16 g PO PRN PRN (Reason: glucose of 70 mg/dl or less) aspirin 81 mg Tablet,Chewable 81 mg PO DAILY fluocinolone 0.01 % Solution 1 applic TOPICAL DAILY PRN (Reason: rash or itching) hydroxychloroquine 200 mg Tablet 200 mg PO DAILY colchicine (gout) 0.6 mg Tablet 2 tab PO PRN MDD 3 PRN (Reason: Gout) Rx Instructions: 2 tablets for gout flare and one tablet in one hour. total 3 tabs for flare episodes fluoride (sodium) 1.1 % Gel 1 applic Dental BEDTIME Rx Instructions: brush gel on teeth. keep on for 2 minutes then spit out. do not rinsh, eat or drink for 30 minutes afater use. peg 400-propylene glycol 0.4-0.3 % Drops 1 drp ophthalmic (eye) QID PRN (Reason: Dry Eyes) rosuvastatin 40 mg Tablet 40 mg PO DAILY cholecalciferol (vitamin D3) [Vitamin D3] 1,000 unit Tablet 2,000 unit PO DAILY lidocaine 5 % Ointment 1 applic TOPICAL BID PRN (Reason: foot and knee pain) omeprazole 20 mg capsule,delayed release(DR/EC) 20 mg PO DAILY Qty: 14 0RF gabapentin 300 mg Referrals: Mely Lynn MD [Primary Care Provider] - Stand Alone Forms: Patient Portal/API
[2023-06-26] VITALS (12 sets, daily range): BP systolic 107–117; BP diastolic 67–79; PULSE 68–75; RESP 13–17; O2SAT 96–99
[2023-06-26] MEDS: LIDOCAINE PATCH 1 EACH ADH..PATCH TOP (00:11)
[2023-06-26 00:42] LABS: Troponin I 0.022 ng/mL (0.01-0.034)
== END 2023-06-26 01:26 | disposition home or self-care (01) ==
PROVIDERS: Emergency Provider Emergency Medicine; PCP Internal Medicine
DX: M94.0 Chondrocostal junction syndrome [Tietze] (principal); Z79.899 Other long term (current) drug therapy
CPT/HCPCS: 36415; 71045; 71275; 80053; 82550; 83690; 83735; 84484; 85025; 85610; 85730; 93005; 99284; Q9967

== ENCOUNTER → 2023-06-28 11:57 | Outpatient (CLI) | payer OTHER, SELFPAY ==
--- NOTE | 2023-06-28 | DI.RAD.S_ITS ---
PROCEDURE: XR CHEST 2V INDICATIONS: history of sarcoidosis TECHNIQUE: 2 views of the chest were acquired. COMPARISON: [facility], CR, XR CHEST 1V, 06/25/2023, 21:13. [facility], CR, XR CHEST 2V, 11/05/2020, 10:17. FINDINGS: Surgical changes and devices: None. Lungs and pleura: Overall similar radiograph with scattered areas of scarring. No drainable pleural effusion. No new consolidation. Mediastinum: Heart size is normal. Bones and chest wall: No acute abnormality. IMPRESSION: No new acute abnormality. Scattered scarring seen bilaterally in the perihilar regions. This is better evaluated on CT. Dictated by: Edison Vallejo M.D. on 06/28/2023 at 15:33 Approved by: Edison Vallejo M.D. on 06/28/2023 at 15:35
== END ==
PROVIDERS: PCP Internal Medicine; Referring Provider Chiropractor; Visit Provider Chiropractor
DX: J45.909 Unspecified asthma, uncomplicated (principal); Z87.09 Personal history of other diseases of the respiratory system
CPT/HCPCS: 71046; 94060

== ENCOUNTER 2023-09-05 11:01 | Emergency (ER) | payer OTHER, SELFPAY ==
[2023-09-05 11:15] VITALS: BP 128/84; PULSE 93; RESP 18; TEMP 36.9; O2SAT 98; BMI 29.7
--- NOTE | 2023-09-05 11:20 | DI.RAD.S_ITS ---
PROCEDURE: XR FINGER RT MIN 2V INDICATIONS: pain TECHNIQUE: AP hand, 2 views of the right 1st finger(s) acquired. COMPARISON: None. FINDINGS: Bones: No fractures or dislocations. No suspicious bony lesions. Soft tissues: No suspicious soft tissue calcifications. IMPRESSION: No acute bony abnormality. If pain persists, followup imaging in 5-7 days is recommended to exclude occult fracture. Dictated by: Zahra Marquis M.D. on 09/05/2023 at 11:58 Approved by: Zahra Marquis M.D. on 09/05/2023 at 11:59
--- NOTE | 2023-09-05 11:20 | DI.RAD.S_ITS ---
PROCEDURE: XR KNEE RT 3V INDICATIONS: pain TECHNIQUE: 3 views of the knee were acquired. COMPARISON: None. FINDINGS: Bones: No acute fracture or dislocation. There is mild femorotibial compartment narrowing and small intercondylar osteophytes. A small exostosis is noted along the medial tibial metadiaphysis. Soft tissues: No joint effusion. No suspicious soft tissue calcifications. IMPRESSION: 1. Small tibial exostosis. Consider 3 month follow-up to ensure stability. If the patient endorses focal pain in this region, MRI could be used to further characterize findings. 2. Mild osteoarthritis. Dictated by: Zahra Marquis M.D. on 09/05/2023 at 11:59 Approved by: Zahra Marquis M.D. on 09/05/2023 at 12:00
--- NOTE | 2023-09-05 12:27 | ED.EXTPRO ---
HPI - Extremity Problem General Chief complaint: Extremity Problem,Nontraumatic Stated complaint: pain in rt thumb and knee Time Seen by Provider: 09/05/23 11:40 Source: patient Mode of arrival: Ambulatory History of Present Illness HPI Narrative: 68-year-old male presents for atraumatic pain in his right thumb and right knee. Patient sees physical therapy for his left hand, per patient the physical therapist noted trigger figner in his R thumb and gave him movements to try at home. Patient states that when he moves his thumb it seems to pop out of place and it is very sore. Knee is painful in the anterior region. No trauma. Related Data Home Medications Medication Instructions Recorded Confirmed aspirin 81 mg chewable tablet 81 mg PO DAILY 10/03/18 06/25/23 cholecalciferol (vitamin D3) 25 2,000 unit PO DAILY 10/03/18 06/25/23 mcg (1,000 unit) tablet (Vitamin D3) colchicine 0.6 mg tablet 2 tab PO PRN PRN Gout 10/03/18 08/04/21 fluocinolone 0.01 % topical 1 applic topical DAILY PRN rash or 10/03/18 08/04/21 solution itching fluoride (sodium) 1.1 % dental gel 1 applic dental BEDTIME 10/03/18 06/25/23 glucose 4 gram chewable tablet 16 g PO PRN PRN glucose of 70 10/03/18 06/25/23 mg/dl or less hydroxychloroquine 200 mg tablet 200 mg PO DAILY 10/03/18 06/25/23 insulin glargine 100 unit/mL 34 units SUBCUT QAM 10/03/18 08/04/21 subcutaneous solution lidocaine 5 % topical ointment 1 applic topical BID PRN foot and 10/03/18 06/25/23 knee pain metformin 1,000 mg tablet 1,000 mg PO BID 10/03/18 06/25/23 peg 400-propylene glycol 0.4 %-0.3 1 drp ophthalmic (eye) QID PRN Dry 10/03/18 06/25/23 % eye drops Eyes rosuvastatin 40 mg tablet 40 mg PO DAILY 10/03/18 06/25/23 tamsulosin 0.4 mg capsule 0.4 mg PO BEDTIME 10/03/18 06/25/23 gabapentin 300 mg 11/15/21 Novolin N NPH U-100 Insulin 20 unit 06/25/23 Ozempic WEEKLY 06/25/23 diclofenac sodium 4 g 3XD 06/25/23 06/25/23 methotrexate 10 mg 06/25/23 prednisone 5 tab DAILY 06/25/23 06/25/23 pregabalin 150 mg BID 06/25/23 06/25/23 Previous Rx's Medication Instructions Recorded omeprazole 20 mg capsule,delayed 20 mg PO DAILY acid-reflux #14 caps 01/14/20 release Allergies Allergy/AdvReac Type Severity Reaction Status Date / Time piroxicam [PIROXICAM] Allergy Mild RASH Verified 06/25/23 21:11 Review of Systems Review of Systems Narrative: Negative except as noted above Patient History Medical History (Updated 09/05/23 @ 12:29 by Paulina Rios MD) Hypertension Dyslipidemia Coronary artery disease Diabetes mellitus Sarcoid Surgical History H/O toe surgery Social History household members: spouse Smoking Status: Never smoker alcohol intake: never substance use type: does not use Smoking Status: Never smoker alcohol intake frequency: holidays/special occasions only Substance Use Type: does not use Exam Initial Vital Signs Initial Vital Signs: Vital Signs Temperature 98.5 F 09/05/23 11:15 Pulse Rate 93 H 09/05/23 11:15 Respiratory Rate 18 09/05/23 11:15 Blood Pressure 128/84 09/05/23 11:15 Pulse Oximetry 98 09/05/23 11:15 Oxygen Delivery Method Room Air 09/05/23 11:15 Const: Awake, alert, no acute distress, nontoxic appearing Cardiac: regular rate, regular rhythm RESP: unlabored, clear bilaterally, no wheezing GI: Atraumatic, soft, nontender, nondistended, no rebound, no guarding MSK: Atraumatic, full range of motion, minimal swelling anterior R knee Skin: Warm, Dry, intact, no rashes Neuro: AO x3, CN II-XII grossly intact, moves all extremities Psych: affect normal, mood normal, not suicidal, not homicidal Course Orders Ordered: ED Orders 09/05/23 11:20 XR finger RT min 2V Stat XR knee RT 3V Stat Vital Signs Vital signs: Vital Signs - 8 hr 09/05/23 11:15 Temperature 98.5 F Pulse Rate 93 H Respiratory Rate 18 Blood Pressure 128/84 Pulse Oximetry 98 Oxygen Delivery Method Room Air MDM - Extremity (Nontraumatic) Differential Diagnosis Differential diagnosis: Likely gout, cellulitis and other (arthritis) MDM Narrative Medical decision making narrative: Atraumatic knee and thumb pain. Physical exam significant for minimal tenderness over anterior R knee, no warmth in knee or thumb. Full ROM. XR negative for acute findings, however exostosis noted of R knee anterior region without priors for comparison. Patient informed of his x-ray results. Recommended close PCP follow up and three-month repeat x-ray of the exostosis to check for progression. Recommended tylenol, NSAIDs, voltaren gel PRN for pain. Placed in ty wrap for comfort Discharge Plan Departure Patient Disposition: Home Clinical Impression: Trigger finger, Acute knee pain, Abnormal x-ray of knee Instructions: DI for Trigger Finger, DI for Knee Pain Activity Restrictions/Additional Instructions: Your hand x-ray did not show any fractures or dislocations. Your knee x-ray showed a small bony growth that could very well be normal, but it is recommended to get a repeat x-ray in 3 months to make sure that it does not change. Take Tylenol and Motrin as needed for pain. You can also apply ice for swelling. Voltaren gel can be found [id number] in his also very helpful for bone and joint pain. Prescriptions: No Action methotrexate 10 mg Rx Instructions: Take 4 tablets of 2.5mg once a week Novolin N NPH U-100 Insulin 20 unit prednisone 5 tab DAILY Ozempic WEEKLY pregabalin 150 mg BID diclofenac sodium 4 g 3XD insulin glargine 100 unit/mL Solution 34 units subcut QAM tamsulosin 0.4 mg Capsule 0.4 mg PO BEDTIME metformin 1,000 mg Tablet 1,000 mg PO BID glucose 4 gram Tablet,Chewable 16 g PO PRN PRN (Reason: glucose of 70 mg/dl or less) aspirin 81 mg Tablet,Chewable 81 mg PO DAILY fluocinolone 0.01 % Solution 1 applic TOPICAL DAILY PRN (Reason: rash or itching) hydroxychloroquine 200 mg Tablet 200 mg PO DAILY colchicine 0.6 mg Tablet 2 tab PO PRN MDD 3 PRN (Reason: Gout) Rx Instructions: 2 tablets for gout flare and one tablet in one hour. total 3 tabs for flare episodes fluoride (sodium) 1.1 % Gel 1 applic Dental BEDTIME Rx Instructions: brush gel on teeth. keep on for 2 minutes then spit out. do not rinsh, eat or drink for 30 minutes afater use. peg 400-propylene glycol 0.4-0.3 % Drops 1 drp ophthalmic (eye) QID PRN (Reason: Dry Eyes) rosuvastatin 40 mg Tablet 40 mg PO DAILY cholecalciferol (vitamin D3) [Vitamin D3] 1,000 unit Tablet 2,000 unit PO DAILY lidocaine 5 % Ointment 1 applic TOPICAL BID PRN (Reason: foot and knee pain) omeprazole 20 mg capsule,delayed release(DR/EC) 20 mg PO DAILY Qty: 14 0RF gabapentin 300 mg Referrals: Mely Lynn MD [Primary Care Provider] - Stand Alone Forms: Patient Portal/API
[2023-09-05 12:40] VITALS: BP 113/85; PULSE 92; RESP 16; TEMP 36.6; O2SAT 98
== END 2023-09-05 12:41 | disposition home or self-care (01) ==
PROVIDERS: Emergency Provider Emergency Medicine; PCP Internal Medicine
DX: M65.311 Trigger thumb, right thumb (principal); M25.561 Pain in right knee; R93.6 Abnormal findings on diagnostic imaging of limbs
CPT/HCPCS: 73140; 73562; 99281; 99283

== ENCOUNTER → 2023-11-05 07:47 | Outpatient (CLI) | payer OTHER, SELFPAY ==
--- NOTE | 2023-11-05 07:49 | DI.US.S_ITS ---
PROCEDURE: US SCROTUM INDICATIONS: Remote history of vasectomy in the mid , for denting with left-sided pain, concern for epididymitis TECHNIQUE: Real-time scanning was performed of the scrotum and testicles, with image documentation. Color and pulse Doppler interrogation was performed of both testicles. COMPARISON: [facility], , US SCROTUM, 11/27/2020, 14:10. FINDINGS: Right: Testicle is normal in size at 3.6 x 3.5 x 2.4 cm, and homogenous in echotexture. Epididymis is normal in overall size and morphology. Large hydrocele containing debris. No varicoceles. Overlying scrotal skin is normal in thickness. Left: Testicle is normal in size at 3.8 x 3.1 x 2.0 cm, and homogeneous in echotexture. Epididymis is normal in overall size and morphology. No hydrocele . Ectatic pampiniform venous plexus. There is a nonvascular nodule at the epididymal tail likely representing benign sperm granuloma secondary to post vasectomy changes. Overlying scrotal skin is normal in thickness. Doppler: Color and pulse Doppler demonstrate normal and symmetric arterial flow in both testicles. Miscellaneous: No inguinal hernias bilaterally. No inguinal lymphadenopathy. IMPRESSION: No sonographic evidence of epididymitis or orchitis. Post vasectomy changes with prominent venous plexus on the left corresponding to area of patient clinical concern. Right hydrocele. Approved by: Cristina King M.D. on 11/05/2023 at 10:54
== END ==
LOC: US 07:49
PROVIDERS: PCP Internal Medicine; Referring Provider Physician Assistant Medical; Visit Provider Physician Assistant Medical
DX: N45.1 Epididymitis (principal); N43.3 Hydrocele, unspecified
CPT/HCPCS: 76870

== ENCOUNTER 2024-05-09 17:34 | Emergency (ER) | payer MEDICARE, OTHER, SELFPAY ==
[2024-05-09 17:43] VITALS: BP 141/91; PULSE 95; RESP 18; TEMP 36.6; O2SAT 100; BMI 29.7
--- NOTE | 2024-05-09 18:15 | DI.RAD.S_ITS ---
PROCEDURE: XR HIP W PEL IF DONE RT 2V INDICATIONS: R hip pain worsening x1wk TECHNIQUE: AP pelvis with lateral view(s) of the right hip(s). COMPARISON: [facility], , XR HIP W PEL IF DONE LT 2V, 11/12/2021, 11:21. FINDINGS: Bones: No fractures or dislocations. Mild bilateral hip joint degeneration without significant progression since 2021. Pelvic ring appears intact. No suspicious bony lesions. Soft tissues: The visualized bowel gas pattern is normal. No suspicious soft tissue calcifications. IMPRESSION: No acute bony abnormality. Symmetric degenerative hip joint changes. Dictated by: Iwona Mercado M.D. on 05/09/2024 at 20:25 Approved by: Iwona Mercado M.D. on 05/09/2024 at 20:26
--- NOTE | 2024-05-09 18:15 | DI.RAD.S_ITS ---
PROCEDURE: XR LUMBAR SPINE 2-3V INDICATIONS: LBP right sided/midline worsening x 1 wk TECHNIQUE: Three views of the lumbar spine were acquired. COMPARISON: [facility], , XR LUMBAR SPINE MIN 4V, 11/05/2020, 10:17. FINDINGS: Bones: Five [id number] vertebrae are present. Straightening of the normal lumbar lordosis. No vertebral body subluxation. Mild degenerative anterior endplate spurring. Mild multilevel disc height loss throughout the lumbar spine. No vertebral body compression fractures. No suspicious bony lesions. Soft tissues: Overlying bowel gas pattern is normal. No suspicious soft tissue calcifications. IMPRESSION: No acute bony abnormality. Loss of lordosis may be due to muscle spasm. Dictated by: Iwona Mercado M.D. on 05/09/2024 at 20:26 Approved by: Iwona Mercado M.D. on 05/09/2024 at 20:27
[2024-05-09] MEDS: CODEINE/ACETAMINOPHEN 30/300 TABLET 1 TAB PO (18:21)
--- NOTE | 2024-05-09 18:54 | ED.BACK ---
HPI - Back Pain/Injury <Yessi Arevalo PA-C - Last Filed: 05/09/24 19:48> General Chief Complaint: Back Pain/Injury Stated Complaint: BACK PAIN RADIATING DOWN RT LEG Time Seen by Provider: 05/09/24 17:47 Source: patient History of Present Illness HPI Narrative: 69-year-old male with a history of diabetes and chronic low back pain, osteoporosis per patient presents with concern for right hip pain and right low back pain radiating into his right leg for the past week getting worse. Patient states the pain is a sharp feeling pain in his hip and it is an aching pain with some numbness feeling in his right low back radiating into his leg. He states his pain is worse with bending forward and also worse when he is standing and bearing weight on his right leg. He states he has had the pain in the back before and knows that his hip also is not very good, he has not had any recent imaging and denies any recent injury. He denies saddle paresthesias, fevers, chills, change in bowel or bladder habits or any other symptoms or concerns. He has otherwise been in his usual state of health Related Data Home Medications Medication Instructions Recorded Confirmed aspirin 81 mg chewable tablet 81 mg PO DAILY 10/03/18 05/09/24 cholecalciferol (vitamin D3) 25 2,000 unit PO DAILY 10/03/18 05/09/24 mcg (1,000 unit) tablet (Vitamin D3) colchicine 0.6 mg tablet 2 tab PO PRN PRN Gout 10/03/18 05/09/24 fluocinolone 0.01 % topical 1 applic topical DAILY PRN rash or 10/03/18 05/09/24 solution itching fluoride (sodium) 1.1 % dental gel 1 applic dental BEDTIME 10/03/18 05/09/24 glucose 4 gram chewable tablet 16 g PO PRN PRN glucose of 70 10/03/18 05/09/24 mg/dl or less hydroxychloroquine 200 mg tablet 200 mg PO DAILY 10/03/18 05/09/24 insulin glargine 100 unit/mL 34 units SUBCUT QAM 10/03/18 05/09/24 subcutaneous solution lidocaine 5 % topical ointment 1 applic topical BID PRN foot and 10/03/18 05/09/24 knee pain metformin 1,000 mg tablet 1,000 mg PO BID 10/03/18 05/09/24 peg 400-propylene glycol 0.4 %-0.3 1 drp ophthalmic (eye) QID PRN Dry 10/03/18 05/09/24 % eye drops Eyes rosuvastatin 40 mg tablet 40 mg PO DAILY 10/03/18 05/09/24 tamsulosin 0.4 mg capsule 0.4 mg PO BEDTIME 10/03/18 05/09/24 gabapentin 300 mg 08/22/21 05/09/24 Novolin N NPH U-100 Insulin 20 unit 06/25/23 05/09/24 Ozempic WEEKLY 06/25/23 05/09/24 diclofenac sodium 4 g 3XD 06/25/23 05/09/24 methotrexate 10 mg 06/25/23 05/09/24 prednisone 5 tab DAILY 06/25/23 05/09/24 pregabalin 150 mg BID 06/25/23 05/09/24 Previous Rx's Medication Instructions Recorded omeprazole 20 mg capsule,delayed 20 mg PO DAILY acid-reflux #14 caps 01/14/20 release acetaminophen 300 mg-codeine 30 mg 1 tab PO Q8H PRN pain 3 days #12 05/09/24 tablet tabs prednisone 20 mg tablet 40 mg (2 x 20 mg) PO DAILY 4 days 05/09/24 #8 tabs Allergies Allergy/AdvReac Type Severity Reaction Status Date / Time piroxicam [PIROXICAM] Allergy Mild RASH Verified 05/09/24 17:20 Review of Systems <Yessi Arevalo PA-C - Last Filed: 05/09/24 19:48> Review of Systems Narrative: see HPI Patient History <Yessi Arevalo PA-C - Last Filed: 05/09/24 19:48> Medical History (Updated 05/09/24 @ 19:44 by Yessi Arevalo PA-C) Hypertension Dyslipidemia Coronary artery disease Diabetes mellitus Sarcoid Surgical History H/O toe surgery Social History household members: spouse Smoking Status: Never smoker alcohol intake: never substance use type: does not use Smoking Status: Never smoker alcohol intake frequency: holidays/special occasions only Substance Use Type: does not use Exam <Yessi Arevalo PA-C - Last Filed: 05/09/24 19:48> Narrative Exam Narrative: GENERAL: [69] year old patient appears stated age. Well-developed patient, in mild distress patient moves slowly and ambulates with the assistance of walking stick. HEAD: Atraumatic. Normocephalic. EYES: Pupils equal round and reactive. Extraocular motions intact. No scleral icterus. No injection or drainage. ENT: Nose without bleeding, purulent drainage. Airway patent. NECK: Trachea midline. Non tender CARDIOVASCULAR: Regular rate and rhythm without murmurs, gallops, or rubs. RESPIRATORY: Clear to auscultation. Breath sounds equal bilaterally. No wheezes, rales, or rhonchi. EXTREMITIES: positive straight leg raise on the right at 30?. There is tenderness with palpation over the greater trochanter on the right. Some mild pain and discomfort with rotation at the hip joint. Patient has increased right low back pain and mid low back pain with flexion and extension at the hip and at the knee that is active. Pedal pulses intact, strength intact. No edema or joint tenderness. BACK: See extremities. Spine is nontender without step-offs or deformity except there is some tenderness in the low lumbar spine/lumbosacral junction approximately L4-5. Nontender without deformity or crepitance. No flank tenderness. NEURO: AOx3. SKIN: No rash or erythema of visible areas Initial Vital Signs Initial Vital Signs: Vital Signs Temperature 97.9 F 05/09/24 17:43 Pulse Rate 95 H 05/09/24 17:43 Respiratory Rate 18 05/09/24 17:43 Blood Pressure 141/91 H 05/09/24 17:43 Pulse Oximetry 100 05/09/24 17:43 Oxygen Delivery Method Room Air 05/09/24 17:43 <Paulina Rios MD - Last Filed: 05/10/24 03:39> Initial Vital Signs Initial Vital Signs: Vital Signs Temperature 97.9 F 05/09/24 17:43 Pulse Rate 95 H 05/09/24 17:43 Respiratory Rate 18 05/09/24 17:43 Blood Pressure 141/91 H 05/09/24 17:43 Pulse Oximetry 100 05/09/24 17:43 Oxygen Delivery Method Room Air 05/09/24 17:43 Course <Yessi Arevalo PA-C - Last Filed: 05/09/24 19:48> Orders Ordered: Discontinued Medications Acetaminophen/Codeine Phosphate (Codeine/Acetaminophen 30/300 Tablet) 1 tab PO NOW ONE Stop: 05/09/24 18:16 Last Admin: 05/09/24 18:21 Dose: 1 tab Documented By: LILLIAM Vital Signs Vital signs: Vital Signs - 8 hr 05/09/24 17:43 05/09/24 19:00 05/09/24 19:01 Temperature 97.9 F Pulse Rate 95 H Respiratory Rate 18 Blood Pressure 141/91 H 132/80 Pulse Oximetry 100 95 Oxygen Delivery Method Room Air 05/09/24 19:01 05/09/24 19:30 05/09/24 19:30 Temperature Pulse Rate 78 75 Respiratory Rate Blood Pressure 115/70 Pulse Oximetry 100 100 Oxygen Delivery Method <Paulina Rios MD - Last Filed: 05/10/24 03:39> Orders Ordered: Discontinued Medications Acetaminophen/Codeine Phosphate (Codeine/Acetaminophen 30/300 Tablet) 1 tab PO NOW ONE Stop: 05/09/24 18:16 Last Admin: 05/09/24 18:21 Dose: 1 tab Documented By: LILLIAM Vital Signs Vital signs: Vital Signs - 8 hr 05/09/24 17:43 05/09/24 19:00 05/09/24 19:01 Temperature 97.9 F Pulse Rate 95 H Respiratory Rate 18 Blood Pressure 141/91 H 132/80 Pulse Oximetry 100 95 Oxygen Delivery Method Room Air 05/09/24 19:01 05/09/24 19:30 05/09/24 19:30 Temperature Pulse Rate 78 75 Respiratory Rate Blood Pressure 115/70 Pulse Oximetry 100 100 Oxygen Delivery Method MDM - Back Pain/Injury <Yessi Arevalo PA-C - Last Filed: 05/09/24 19:48> Differential Diagnosis Differential diagnosis: Likely lumbar radiculopathy, sciatica, strain of lumbar region and other ( osteoarthritis, hip osteoarthritis, hip fracture) Imaging Data Extremity x-ray #1: Attestation: I personally reviewed and interpreted this imaging study as follows: My Impression: this patient's x-rays were reviewed by myself and attending physician Dr. Rios who found no concerning findings for acute injury. X-ray interpretation by radiologist was pending at the time patient was discharged. lumbar xr: Attestation: I personally reviewed and interpreted this imaging study as follows: My Impression: this patient's x-rays were reviewed by myself and attending physician Dr. Rios who found no concerning findings for acute injury. X-ray interpretation by radiologist was pending at the time patient was discharged. MDM Narrative Medical decision making narrative: this is a 69-year-old male presenting with concern for right hip pain and right low back pain radiating in his right leg for 1 week gradually worsening. Has had history of similar symptoms in the past. He has no red flag symptoms today. No known injury. Given he has had no recent imaging and has fairly point specific hip pain on exam x-rays of hip and pelvis are obtained as well as lumbar spine. These are pending at time of discharge and reviewed by attending physician Dr. Rios and myself. No acute concerning findings on x-ray for our review. And patient is discharged with plan for prednisone and Tylenol 3. He is advised to monitor his blood sugars while taking the prednisone. Follow up closely with his primary care provider and consider seeing orthopedics soon for further evaluation. Discharge Plan Departure Patient Disposition: Home Clinical Impression: Sciatica Qualifiers: Laterality: right Qualified Code(s): M54.31 - Sciatica, right side Acute low back pain Qualifiers: Back pain laterality: right Sciatica presence: with sciatica Sciatica laterality: sciatica of right side Qualified Code(s): M54.41 - Lumbago with sciatica, right side Hip joint pain Qualifiers: Laterality: right Qualified Code(s): M25.551 - Pain in right hip Instructions: DI for Back Pain With Sciatica Activity Restrictions/Additional Instructions: *You have been diagnosed with [ ] *What to do: *Please continue to take your regular medications as directed. [2 ] New medication prescriptions sent to your pharmacy: [ Tylenol 3, prednisone] [ ] New medication written as a paper prescription [ ] No new medications given *Please follow up with your primary care provider in 2-3 days, call for an appointment. Let them know you were seen in the Emergency Department and that we ask that you be seen in follow up. We will electronically transmit a record of today's note if your PCP is in our system. Your x-rays looked okay today. I am giving a short prescription of Tylenol 3 as you have been having some acute pain. Also a short prescription of steroid medication to reduce inflammation. Please monitor your sugars carefully steroids can increase the blood sugar levels. I recommend he follow up closely with Orthopedics in your primary care provider. And I have included information for orthopedics below in your paperwork. *If you do not have a primary care provider please contact the [facility] Resource line at [phone]. They will ask some questions about your medical history and help get you set up with a doctor in the community. *Return to Emergency Department if you should have any new, worsening or concerning symptoms, such as [fever greater than 101 F, shaking chills, worsening pain, persistent vomiting or other bothersome symptoms] Prescriptions: New prednisone 20 mg tablet 40 mg PO DAILY 4 Days Qty: 8 0RF acetaminophen-codeine 300-30 mg tablet 1 tab PO Q8H PRN (Reason: pain) 3 Days Qty: 12 0RF No Action methotrexate 10 mg Rx Instructions: Take 4 tablets of 2.5mg once a week Novolin N NPH U-100 Insulin 20 unit prednisone 5 tab DAILY Ozempic WEEKLY pregabalin 150 mg BID diclofenac sodium 4 g 3XD insulin glargine 100 unit/mL Solution 34 units subcut QAM tamsulosin 0.4 mg Capsule 0.4 mg PO BEDTIME metformin 1,000 mg Tablet 1,000 mg PO BID glucose 4 gram Tablet,Chewable 16 g PO PRN PRN (Reason: glucose of 70 mg/dl or less) aspirin 81 mg Tablet,Chewable 81 mg PO DAILY fluocinolone 0.01 % Solution 1 applic TOPICAL DAILY PRN (Reason: rash or itching) hydroxychloroquine 200 mg Tablet 200 mg PO DAILY colchicine 0.6 mg Tablet 2 tab PO PRN MDD 3 PRN (Reason: Gout) Rx Instructions: 2 tablets for gout flare and one tablet in one hour. total 3 tabs for flare episodes fluoride (sodium) 1.1 % Gel 1 applic Dental BEDTIME Rx Instructions: brush gel on teeth. keep on for 2 minutes then spit out. do not rinsh, eat or drink for 30 minutes afater use. peg 400-propylene glycol 0.4-0.3 % Drops 1 drp ophthalmic (eye) QID PRN (Reason: Dry Eyes) rosuvastatin 40 mg Tablet 40 mg PO DAILY cholecalciferol (vitamin D3) [Vitamin D3] 1,000 unit Tablet 2,000 unit PO DAILY lidocaine 5 % Ointment 1 applic TOPICAL BID PRN (Reason: foot and knee pain) omeprazole 20 mg capsule,delayed release(DR/EC) 20 mg PO DAILY Qty: 14 0RF gabapentin 300 mg Referrals: Sameer Ortiz MD [Physician] - Mely Lynn MD [Primary Care Provider] - Stand Alone Forms: Patient Portal/API ED Sign-out <Paulina Rios MD - Last Filed: 05/10/24 03:39> Cosign ED Attending Cosignature Attestation: I did not see this patient. I was available all times for consultation.
[2024-05-09 19:00] VITALS: O2SAT 95
[2024-05-09 19:01] VITALS: BP 132/80; PULSE 78; O2SAT 100
[2024-05-09 19:30] VITALS: BP 115/70; PULSE 75; O2SAT 100
== END 2024-05-09 19:50 | disposition home or self-care (01) ==
PROVIDERS: Emergency Provider Student in an Organized Health Care Education/Training Program; PCP Internal Medicine
DX: M54.41 Lumbago with sciatica, right side (principal); M25.551 Pain in right hip; Z79.899 Other long term (current) drug therapy
CPT/HCPCS: 72100; 73502; 99283

== ENCOUNTER 2024-09-11 09:52 | Emergency (ER) | payer OTHER, SELFPAY ==
[2024-09-11 09:55] VITALS: BP 144/85; PULSE 90; RESP 14; TEMP 37.2; O2SAT 96; BMI 28.7
[2024-09-11 10:02] VITALS: PULSE 95; O2SAT 98
[2024-09-11 10:03] VITALS: BP 144/85; PULSE 93; O2SAT 96
--- NOTE | 2024-09-11 10:19 | ED_ITS ---
HPI - Back Pain/Injury General Chief Complaint: Back Pain/Injury Stated Complaint: back pain Time Seen by Provider: 09/11/24 09:55 Source: patient History of Present Illness HPI Narrative: 69-year-old gentleman with a history of intermittent chronic back pain, braulio chey, a history of sarcoidosis for which he uses methotrexate and hydrochloroquine presents with acute back pain. He has had similar symptoms previously. He stood up from a chair and felt ?that is small twinge? in the lumbar area that has gotten progressively worse to the point where he had difficulty getting out of bed today secondary to pain. There are no paresthesias or weakness. No changes to voiding ability no perineal tenderness. The last episode of pain such as this was long enough ago that he isn't quite sure what seemed to help. He has not taken any pain medication today. No n ausea, vomiting, fevers, chills, chest pain, palpitations . Related Data Home Medications Medication Instructions Recorded Confirmed aspirin 81 mg chewable tablet 81 mg PO DAILY 10/03/18 05/09/24 cholecalciferol (vitamin D3) 25 2,000 unit PO DAILY 10/03/18 05/09/24 mcg (1,000 unit) tablet (Vitamin D3) colchicine 0.6 mg tablet 2 tab PO PRN PRN Gout 10/03/18 05/09/24 fluocinolone 0.01 % topical 1 applic topical DAILY PRN rash or 10/03/18 05/09/24 solution itching fluoride (sodium) 1.1 % dental gel 1 applic dental BEDTIME 10/03/18 05/09/24 glucose 4 gram chewable tablet 16 g PO PRN PRN glucose of 70 10/03/18 05/09/24 mg/dl or less hydroxychloroquine 200 mg tablet 200 mg PO DAILY 10/03/18 05/09/24 insulin glargine 100 unit/mL 34 units SUBCUT QAM 10/03/18 05/09/24 subcutaneous solution lidocaine 5 % topical ointment 1 applic topical BID PRN foot and 10/03/18 05/09/24 knee pain metformin 1,000 mg tablet 1,000 mg PO BID 10/03/18 05/09/24 peg 400-propylene glycol 0.4 %-0.3 1 drp ophthalmic (eye) QID PRN Dry 10/03/18 05/09/24 % eye drops Eyes rosuvastatin 40 mg tablet 40 mg PO DAILY 10/03/18 05/09/24 tamsulosin 0.4 mg capsule 0.4 mg PO BEDTIME 10/03/18 05/09/24 gabapentin 300 mg 08/22/21 05/09/24 Novolin N NPH U-100 Insulin 20 unit 06/25/23 05/09/24 Ozempic WEEKLY 06/25/23 05/09/24 diclofenac sodium 4 g 3XD 06/25/23 05/09/24 methotrexate 10 mg 06/25/23 05/09/24 prednisone 5 tab DAILY 06/25/23 05/09/24 pregabalin 150 mg BID 06/25/23 05/09/24 Previous Rx's Medication Instructions Recorded omeprazole 20 mg capsule,delayed 20 mg PO DAILY acid-reflux #14 caps 01/14/20 release oxycodone-acetaminophen 5 mg-325 1 tab PO Q6H PRN pain #14 tabs 09/11/24 mg tablet Allergies Allergy/AdvReac Type Severity Reaction Status Date / Time piroxicam [PIROXICAM] Allergy Mild RASH Verified 09/11/24 10:04 Review of Systems Review of Systems Narrative: Pertinent positive and negative findings as per HPI Patient History Medical History (Updated 09/11/24 @ 10:34 by Lianna Briscoe MD) Hypertension Dyslipidemia Coronary artery disease Diabetes mellitus Sarcoid Surgical History H/O toe surgery Social History household members: spouse Smoking Status: Never smoker alcohol intake: never substance use type: does not use Smoking Status: Never smoker alcohol intake frequency: holidays/special occasions only Exam Initial Vital Signs Initial Vital Signs: Vital Signs Temperature 99.0 F 09/11/24 09:55 Pulse Rate 90 09/11/24 09:55 Respiratory Rate 14 09/11/24 09:55 Blood Pressure 144/85 H 09/11/24 09:55 Pulse Oximetry 96 09/11/24 09:55 Oxygen Delivery Method Room Air 09/11/24 09:55 General: Alert appropriate in no acute distress Respiratory: Able to speak in full sentences, no obvious respiratory distress Skin: No obvious rashes, warm and dry Neurologic: Grossly intact no obvious asymmetries or abnormalities, no lower extremity paresthesia or weakness Psych: appropriate insight and affect, cooperative Spine: Paraspinous muscle spasm right side lower lumbar area extending into the right upper buttock is appreciated. No warmth, redness or midline point tenderness Course Vital Signs Vital signs: Vital Signs - 8 hr 09/11/24 09:55 09/11/24 10:02 09/11/24 10:03 Temperature 99.0 F Pulse Rate 90 95 H Respiratory Rate 14 Blood Pressure 144/85 H 144/85 H Pulse Oximetry 96 98 Oxygen Delivery Method Room Air 09/11/24 10:03 Temperature Pulse Rate 93 H Respiratory Rate Blood Pressure Pulse Oximetry 96 Oxygen Delivery Method MDM - Back Pain/Injury MDM Narrative Medical decision making narrative: 69-year-old gentleman with complicated medical history presents complaining of acute onset back pain with ?that twinge? yesterday. He has no red flags such as trauma, IV drug use or history of cancer that would suggest the need for imaging imaging or lab work. Exam is consistent with musculoskeletal back pain, no concerns for epidural abscess, diskitis or cauda equina syndrome Patient is given a dose of IM Toradol and Percocet for acute pain. We talked about anticipated course of recovery including increased pain over the next 48 hours and need for mobility. We will recommend ibuprofen and up to 3 days of narcotic. Ice and heat. Questions are answered he is safe for discharge Discharge Plan Departure Patient Disposition: Home Clinical Impression: Acute back pain Qualifiers: Back pain location: low back pain Back pain laterality: right Sciatica presence: without sciatica Qualified Code(s): M54.50 - Low back pain, unspecified Instructions: DI for Back Strain or Sprain Activity Restrictions/Additional Instructions: Thank you for coming in today, I am sorry you are suffering with this acute back pain On your physical exam you clearly have some muscle spasm that is causing your symptoms. Frequently the pain is worse in the 1st 48 hours and we will plan to resolve over the next week. If you are still having pain after 6 weeks, further workup is warranted. Using 400 mg of ibuprofen (2 yowt-[id number]-[id number] pills) and 1 Tylenol every 6 hours can be very helpful in controlling pain. For severe pain using 400 mg of ibuprofen and 1 Percocet we will be helpful. Percocet is a narcotic and will cause constipation and should be taken with a stool softener Early mobility, at least gently walking around her house, is going to help with overall healing If you find that you are getting worse or develop any new symptoms, please feel free to return to the emergency department for further evaluation. Prescriptions: New oxycodone-acetaminophen 5-325 mg tablet 1 tab PO Q6H PRN (Reason: pain) Qty: 14 0RF No Action methotrexate 10 mg Rx Instructions: Take 4 tablets of 2.5mg once a week Novolin N NPH U-100 Insulin 20 unit prednisone 5 tab DAILY Ozempic WEEKLY pregabalin 150 mg BID diclofenac sodium 4 g 3XD insulin glargine 100 unit/mL Solution 34 units subcut QAM tamsulosin 0.4 mg Capsule 0.4 mg PO BEDTIME metformin 1,000 mg Tablet 1,000 mg PO BID glucose 4 gram Tablet,Chewable 16 g PO PRN PRN (Reason: glucose of 70 mg/dl or less) aspirin 81 mg Tablet,Chewable 81 mg PO DAILY fluocinolone 0.01 % Solution 1 applic TOPICAL DAILY PRN (Reason: rash or itching) hydroxychloroquine 200 mg Tablet 200 mg PO DAILY colchicine 0.6 mg Tablet 2 tab PO PRN MDD 3 PRN (Reason: Gout) Rx Instructions: 2 tablets for gout flare and one tablet in one hour. total 3 tabs for flare episodes fluoride (sodium) 1.1 % Gel 1 applic Dental BEDTIME Rx Instructions: brush gel on teeth. keep on for 2 minutes then spit out. do not rinsh, eat or drink for 30 minutes afater use. peg 400-propylene glycol 0.4-0.3 % Drops 1 drp ophthalmic (eye) QID PRN (Reason: Dry Eyes) rosuvastatin 40 mg Tablet 40 mg PO DAILY cholecalciferol (vitamin D3) [Vitamin D3] 1,000 unit Tablet 2,000 unit PO DAILY lidocaine 5 % Ointment 1 applic TOPICAL BID PRN (Reason: foot and knee pain) omeprazole 20 mg capsule,delayed release(DR/EC) 20 mg PO DAILY Qty: 14 0RF gabapentin 300 mg Referrals: Mely Lynn MD [Primary Care Provider] - Stand Alone Forms: Patient Portal/API/Survey
[2024-09-11] MEDS: KETOROLAC 30 MG/ML VIAL IM (10:33)
[2024-09-11] MEDS: OXYCODONE/ACETAMINOPHEN 5/325 TABLET 1 TAB PO (10:33)
--- NOTE | 2024-09-11 10:43 | PC.NURSE ---
Pt reports he was walking yesterday when he felt his back give out. Pt states he slept well; but is having lower back pain that he states he has had similarly in the past. No numbness tingling or loss of bladder/bowel.
== END 2024-09-11 10:46 | disposition home or self-care (01) ==
PROVIDERS: Emergency Provider Emergency Medicine; PCP Internal Medicine
DX: M54.50 Low back pain, unspecified (principal)
CPT/HCPCS: 96372; 99283; J1885

== ENCOUNTER 2025-02-28 00:10 | Emergency (ER) | payer OTHER, SELFPAY ==
[2025-02-28 00:17] VITALS: BP 117/73; PULSE 88; RESP 16; TEMP 37.3; O2SAT 98; BMI 28.4
[2025-02-28 00:41] LABS: Strep Grp A by PCR Rapid Negative (Negative)
[2025-02-28 01:06] LABS: Influenza A - CEPHEID Flu A NEGATIVE (NEGATIVE); Influenza B - CEPHEID Flu B NEGATIVE (NEGATIVE); Respiratory Syncytial Virus Negative (Negative)
[2025-02-28 01:07] LABS: COVID-19 CEPHEID 4-PLEX PCR Negative (Negative)
--- NOTE | 2025-02-28 01:59 | ED.URI ---
HPI - URI/Sore Throat General Chief Complaint: Upper Respiratory Symptoms Stated Complaint: Sore throat and cough x6 days Time Seen by Provider: 02/28/25 01:58 Source: patient, RN notes reviewed and old records reviewed Mode of arrival: Ambulatory Limitations: no limitations History of Present Illness HPI Narrative: 69-year-old male with a history of chronic back pain, diabetes, history of sarcoidosis on methotrexate and hydroxychloroquine. Patient presents with complaint of nasal congestion, sore throat, hoarseness and cough for the past 6 days. Patient states no fevers. States sore throat but has a little bit improved. He notes some hoarseness but no muffled voice. He has had nasal congestion. He states he was had a cough he has some occasional productive sputum. States it has been a little bit green. Little bit of mild chest discomfort shortness of breath with the exertion. No swelling in extremities. No nausea or vomiting, no other GI or urinary symptoms. Patient states had sick contacts with several grandchildren has been ill. Reports an allergy to piroxicam. No tobacco, occasional alcohol, no recreational drugs. States he presents tonight as it has been going on for 6 days and not improving yet when he usually responds after 2 or 3 days and taking [place] at home. States no other [id number] medications. Related Data Home Medications Medication Instructions Recorded Confirmed aspirin 81 mg chewable tablet 81 mg PO DAILY 10/03/18 05/09/24 cholecalciferol (vitamin D3) 25 2,000 unit PO DAILY 10/03/18 05/09/24 mcg (1,000 unit) tablet (Vitamin D3) colchicine 0.6 mg tablet 2 tab PO PRN PRN Gout 10/03/18 05/09/24 fluocinolone 0.01 % topical 1 applic topical DAILY PRN rash or 10/03/18 05/09/24 solution itching fluoride (sodium) 1.1 % dental gel 1 applic dental BEDTIME 10/03/18 05/09/24 glucose 4 gram chewable tablet 16 g PO PRN PRN glucose of 70 10/03/18 05/09/24 mg/dl or less hydroxychloroquine 200 mg tablet 200 mg PO DAILY 10/03/18 05/09/24 insulin glargine 100 unit/mL 34 units SUBCUT QAM 10/03/18 05/09/24 subcutaneous solution lidocaine 5 % topical ointment 1 applic topical BID PRN foot and 10/03/18 05/09/24 knee pain metformin 1,000 mg tablet 1,000 mg PO BID 10/03/18 05/09/24 peg 400-propylene glycol 0.4 %-0.3 1 drp ophthalmic (eye) QID PRN Dry 10/03/18 05/09/24 % eye drops Eyes rosuvastatin 40 mg tablet 40 mg PO DAILY 10/03/18 05/09/24 tamsulosin 0.4 mg capsule 0.4 mg PO BEDTIME 10/03/18 05/09/24 gabapentin 300 mg 08/22/21 05/09/24 Novolin N NPH U-100 Insulin 20 unit 06/25/23 05/09/24 Ozempic WEEKLY 06/25/23 05/09/24 diclofenac sodium 4 g 3XD 06/25/23 05/09/24 methotrexate 10 mg 06/25/23 05/09/24 prednisone 5 tab DAILY 06/25/23 05/09/24 pregabalin 150 mg BID 06/25/23 05/09/24 Previous Rx's Medication Instructions Recorded omeprazole 20 mg capsule,delayed 20 mg PO DAILY acid-reflux #14 caps 01/14/20 release oxycodone-acetaminophen 5 mg-325 1 tab PO Q6H PRN pain #14 tabs 09/11/24 mg tablet fluticasone propionate 50 1 spray intranasal BID #16 grams 02/28/25 mcg/actuation nasal spray,suspension (Flonase Allergy Relief) Allergies Allergy/AdvReac Type Severity Reaction Status Date / Time piroxicam [PIROXICAM] Allergy Mild RASH Verified 09/11/24 10:04 Review of Systems Review of Systems ROS Unobtainable: All systems reviewed & are unremarkable except as noted in HPI and below Patient History Medical History Hypertension Dyslipidemia Coronary artery disease Diabetes mellitus Sarcoid Surgical History H/O toe surgery Social History household members: spouse Smoking Status: Never smoker alcohol intake: never substance use type: does not use Smoking Status: Never smoker alcohol intake frequency: holidays/special occasions only Exam Narrative Exam Narrative: GEN: well nourished, well appearing male, alert and oriented x 3, patient appears to be in mild distress. HEENT: Atraumatic, pupils are equal round reactive to light, extraocular movements are intact, nares show bilateral clear rhinorrhea, TMs are clear with no fluid, there is no conjunctival pallor. Throat is clear without any exudates, erythema, tonsillar enlargement or uvular deviation, slightly hoarse, no difficulty with speech, no stridor, patient was full range of motion in his neck, does have some mild anterior cervical lymphadenopathy which patient states is chronic and unchanged. HEART: Regular rate and rhythm without murmur, clicks, rubs. LUNGS:Lungs clear to auscultation, no wheezes, rales, crackles, chest moves symmetrically ABD:bowel sounds normal, soft, non-tender, no guarding, rebound, rigidity, no masses noted, no hepatosplenomegaly MSCL: Non-tender, no muscle atrophy, muscles strength 5/5 upper and lower extremities, full range of motion, normal gait NEURO:CN 2-12 intact, sensation normal Initial Vital Signs Initial Vital Signs: Vital Signs Temperature 99.1 F 02/28/25 00:17 Pulse Rate 88 02/28/25 00:17 Respiratory Rate 16 02/28/25 00:17 Blood Pressure 117/73 02/28/25 00:17 Pulse Oximetry 98 02/28/25 00:17 Oxygen Delivery Method Room Air 02/28/25 00:17 Course Orders Ordered: ED Orders 02/28/25 00:25 Covid-19 + FLU A/B + RSV - PCR Stat Strep Grp A by PCR Rapid Stat Throat Culture Stat Vital Signs Vital signs: Vital Signs - 8 hr 02/28/25 00:17 02/28/25 02:18 Temperature 99.1 F Pulse Rate 88 80 Respiratory Rate 16 16 Blood Pressure 117/73 114/67 Pulse Oximetry 98 99 Oxygen Delivery Method Room Air Room Air MDM - URI/Sore Throat Lab Data Labs: Lab Results 02/28/25 Range/Units 00:25 SARS-CoV-2 (PCR) Negative (Negative) Influenza A (RT-PCR) Flu a negative (NEGATIVE) Influenza B (RT-PCR) Flu b negative (NEGATIVE) RSV (PCR) Negative (Negative) Group A Strep (PCR) Negative (Negative) MDM Narrative Medical decision making narrative: COVID/influenza/RSV is negative Rapid strep is negative 69-year-old male presents with complaint of symptoms that seem most consistent with a URI, has had recent sick contacts with grandchildren. For swab is negative rapid strep is negative patient's vitals are appropriate on exam he has not nasal congestion, clear lungs. Discussed with the patient can do an [id number] antihistamine and/or Afrin but counseled that you can get rebound using Afrin. So discussed can try Flonase as well. Discussed return precautions and if persistent symptoms should follow up for re-evaluation. Discharge Plan Departure Patient Disposition: Home Clinical Impression: Upper respiratory infection Instructions: DI for Viral Upper Respiratory Infection -- Adult Activity Restrictions/Additional Instructions: Your symptoms are most consistent with a upper respiratory infection these typically take 7-10 days to fully clear. You can take an [id number] antihistamine such loratadine or Zyrtec once daily. You can use Afrin for nasal congestion but do not use this more than 3 days in a row or you can get rebound with persistent nasal congestion. Prescription for Flonase is included which may help open up your nose a little bit. You can use this if you feel that is needed. If you develop new fevers, new or worsening chest pain, increasing shortness of breath, lightheadedness or passing out, new swelling of your extremities are persistent productive cough please return for re-evaluation. Prescriptions: New fluticasone propionate [Flonase Allergy Relief] 50 mcg/actuation spray,suspension 1 spray intranasal BID Qty: 16 0RF Rx Instructions: administer into each nostril No Action methotrexate 10 mg Rx Instructions: Take 4 tablets of 2.5mg once a week Novolin N NPH U-100 Insulin 20 unit prednisone 5 tab DAILY Ozempic WEEKLY pregabalin 150 mg BID diclofenac sodium 4 g 3XD oxycodone-acetaminophen 5-325 mg tablet 1 tab PO Q6H PRN (Reason: pain) Qty: 14 0RF insulin glargine 100 unit/mL Solution 34 units subcut QAM tamsulosin 0.4 mg Capsule 0.4 mg PO BEDTIME metformin 1,000 mg Tablet 1,000 mg PO BID glucose 4 gram Tablet,Chewable 16 g PO PRN PRN (Reason: glucose of 70 mg/dl or less) aspirin 81 mg Tablet,Chewable 81 mg PO DAILY fluocinolone 0.01 % Solution 1 applic TOPICAL DAILY PRN (Reason: rash or itching) hydroxychloroquine 200 mg Tablet 200 mg PO DAILY colchicine 0.6 mg Tablet 2 tab PO PRN MDD 3 PRN (Reason: Gout) Rx Instructions: 2 tablets for gout flare and one tablet in one hour. total 3 tabs for flare episodes fluoride (sodium) 1.1 % Gel 1 applic Dental BEDTIME Rx Instructions: brush gel on teeth. keep on for 2 minutes then spit out. do not rinsh, eat or drink for 30 minutes afater use. peg 400-propylene glycol 0.4-0.3 % Drops 1 drp ophthalmic (eye) QID PRN (Reason: Dry Eyes) rosuvastatin 40 mg Tablet 40 mg PO DAILY cholecalciferol (vitamin D3) [Vitamin D3] 1,000 unit Tablet 2,000 unit PO DAILY lidocaine 5 % Ointment 1 applic TOPICAL BID PRN (Reason: foot and knee pain) omeprazole 20 mg capsule,delayed release(DR/EC) 20 mg PO DAILY Qty: 14 0RF gabapentin 300 mg Referrals: Mely Lynn MD [Primary Care Provider] - Stand Alone Forms: Patient Portal/API/Survey
[2025-02-28 02:18] VITALS: BP 114/67; PULSE 80; RESP 16; O2SAT 99
== END 2025-02-28 02:19 | disposition home or self-care (01) ==
PROVIDERS: Emergency Provider Emergency Medicine; PCP Internal Medicine
DX: J06.9 Acute upper respiratory infection, unspecified (principal)
CPT/HCPCS: 0241U; 87070; 87651; 99281; 99282